=== PATIENT | male | born 1955 | race Caucasian/White ===

== ENCOUNTER → 2017-02-26 | Outpatient (CLI) | payer BC ==
[~2017-02-26] MED LIST: ASPI81TA28 PO; ATOR-26 PO; CLOP1TAB15 PO; GLCSR500 PO; LISI5TAB3 PO; METO25TA3 PO; PARO1TAB27 PO; SITA100T3 PO; XNX25 PO
--- NOTE | 2017-02-26 14:39 | DIAGNOSTIC IMAGING REPORT ---
CHEST 2 VIEWS ROUTINE HISTORY: R07.89 Atypical chest [id number] COMPARISON: Chest 10/16/2009. FINDINGS: The lungs are clear. Cardiac silhouette is normal in size. No pleural effusions. No pneumothorax. IMPRESSION: No acute process. Electronically signed by: Jose Amos M.D. 02/26/2017 2:38 PM Dictated Date/Time: 02/26/2017 2:36 PM
--- NOTE | 2017-02-26 14:40 | DIAGNOSTIC IMAGING REPORT ---
THORACIC SPINE 3 VIEWS ROUTINE CLINICAL HISTORY: PAIN COMPARISON STUDY: No previous studies for comparison. FINDINGS: The paraspinal line is not displaced. There are moderate multilevel degenerative changes with bridging anterior and lateral osteophytes. No fractures are delineated. IMPRESSION: Degenerative change. No fractures subluxations or destructive lesions are visualized Electronically signed by: Antonio Mansfield M.D. 02/26/2017 2:38 PM Dictated Date/Time: 02/26/2017 2:38 PM
== END | disposition home or self-care (01) ==
LOC: C.RADBC 14:16
PROVIDERS: ATTEND Internal Medicine
DX: R07.89 Other chest pain (principal)

== ENCOUNTER 2019-12-22 10:34 | Inpatient (IN) ==
[2019-12-22 11:29] LABS: Basophils # (auto) 0.01 K/uL (0-0.2); Basophils % (auto) 0.1 %; Hematocrit (blood only) 42.2 % (42-52); Hemoglobin 14.8 g/dL (14.0-18.0); Immature Granulocytes # (auto) 0.03 K/uL (0.00-0.02); Immature Granulocytes % (auto) 0.3 %; Lymphocytes # (auto) 1.43 K/uL (1.2-3.4); Lymphocytes % (auto) 15.4 %; Mean Corpuscular Hemoglobin 31.1 pg (25-34); Mean Corpuscular Hgb Conc 35.1 g/dL (32-36); Mean Corpuscular Volume 88.7 fL (80-100); Mean Platelet Volume 9.5 fL (7.4-10.4); Monocytes % (auto) 5.4 %; Neutrophils % (auto) 78.8 %; Platelet Count 236 K/uL (130-400); RDW Coefficient of Variation 13.1 % (11.5-14.5); RDW Standard Deviation 42.5 fL (36.4-46.3); Red Blood Count 4.76 M/uL (4.7-6.1); White Blood Count 9.27 K/uL (4.8-10.8)
[2019-12-22] MEDS ORDERED: OPTIRAY 320 125ml IV PRN ×2 (11:29→22:13)
[2019-12-22 11:30] LABS: Partial Thromboplastin Ratio 0.9; Partial Thromboplastin Time 25.5 Seconds (21.0-31.0)
--- NOTE | 2019-12-22 11:30 | CT Scan Report ---
CT head/brain wo con CLINICAL HISTORY: Stroke evaluation COMPARISON STUDY: No previous studies for comparison. TECHNIQUE: Axial CT of the brain is performed from the vertex to the skull base. IV contrast was not administered for this examination. A dose lowering technique was utilized adhering to the principles of ALARA. CT DOSE: FINDINGS: No intra or extra-axial mass lesions are visualized. There is no CT evidence of acute cortical infarc tion. There is no evidence of midline shift. There is no acute hemorrhage. No calvarial fractures ar e visualized. There are patchy white matter hypodensities likely on a small vessel basis. There is no evidence of pathologic ventricular dilatation. There is no evidence of acute sinusitis IMPRESSION: No acute intracranial findings ACT 112: Negative or not required by law. Electronically signed by: Antonio Mansfield M.D. 12/22/2019 11:28 AM
--- NOTE | 2019-12-22 11:39 | CT Scan Report ---
CTA ANGIOGRAPHY OF THE HEAD CLINICAL HISTORY: Stroke evaluation COMPARISON STUDY: No previous studies for comparison. TECHNIQUE: Helical axial images of the head were obtained following uneventful intravenous administr ation of 120 cc of Optiray 320. Sagittal and coronal reconstructions were viewed as well as maximal i ntensity projections on an independent 3-D workstation. Automated exposure control was utilized for the study. A dose lowering technique was utilized adhering to the principles of ALARA. CT DOSE: 1363.72 mGy.cm FINDINGS: No acute intracranial hemorrhage, midline shift or mass effect is present. Ventricular syst em is normal. The basilar cisterns are patent. There are no extra axial collections. No intraluminal thrombus or abrupt vessel cut off is identified. There is moderate plaque within bilateral cavernous carotids without stenosis. The bilateral M1, M2, A1 and A2 segments are patent. Focal calcified plaqu e within the proximal intracranial portion of the left vertebral artery results in mild to moderate s tenosis. Otherwise, the posterior circulation is unremarkable. There are bilateral posterior communic ating arteries. IMPRESSION: 1. No intraluminal thrombus or abrupt vessel cutoff. No intracranial aneurysm. 2. Mild to moderate stenosis of the intracranial portion of the left vertebral artery. ACT 112: Negative or not required by law. Electronically signed by: Boaz Saenz M.D. 12/22/2019 11:38 AM
--- NOTE | 2019-12-22 11:40 | XRay Report ---
XR chest 1V portable CLINICAL HISTORY: stroke COMPARISON STUDY: Chest radiograph February 26, 2017. FINDINGS: Lung volumes are normal. Lungs are clear. There is no pneumothorax or pleural effusion. Mil d cardiomegaly is noted. Mediastinal contours are normal. There is pulmonary vascular congestion. IMPRESSION: Mild cardiomegaly. Pulmonary vascular congestion without evidence for pulmonary edema. ACT 112: Negative or not required by law. Electronically signed by: Boaz Saenz M.D. 12/22/2019 11:39 AM
--- NOTE | 2019-12-22 11:41 | CT Scan Report ---
CT angio neck with con CLINICAL HISTORY: Stroke evaluation COMPARISON STUDY: No previous studies for comparison. TECHNIQUE: CT angiography was performed from the aortic arch to the skull base. MIP imaging was perfo rmed. The patient was scanned in a dynamic helical fashion during intravenous administration of 120 c c of Optiray 320. A dose lowering technique was utilized adhering to the principles of ALARA. CT DOSE: Technique: CT angiogram of the carotid and vertebral arteries was obtained using intravenous contrast and 3-D reconstruction. NASCET criteria was utilized. Findings: The right carotid revealed no evidence of aneurysm and no evidence of dissection. There is no evidenc e of hemodynamic significant stenosis. The left carotid revealed no evidence of hemodynamic significant stenosis. There is no evidence of an eurysm. There is no evidence of dissection. There is calcified atheromatous plaque at both carotid bifurcations. Both carotids demonstrate a retr opharyngeal course. There is no evidence of hemodynamically significant vertebral stenosis. There is no evidence of verte bral dissection. There are atheromatous calcifications within the distal left humeral artery without evidence of hemodynamically significant stenosis. The left vertebral artery is dominant. IMPRESSION: No evidence of hemodynamically significant carotid or vertebral artery stenosis. No evidence of disse ction. ACT 112: Negative or not required by law. Electronically signed by: Antonio Mansfield M.D. 12/22/2019 11:39 AM
[2019-12-22 11:42] LABS: Albumin Level 3.6 gm/dl (3.4-5.0); BUN Creatinine Ratio 9.8 (10-20); Calcium 8.9 mg/dl (8.5-10.1); Creatinine Clr Calc Pharmacy 77.3 ml/min; Est GFR (African American) 64.9; Magnesium 1.3 mg/dl (1.8-2.4); Potassium 4.1 mmol/L (3.5-5.1)
[2019-12-22] MEDS ORDERED: LORazepam 2 MG/4 ML VIAL IV STA (11:44)
[2019-12-22 11:58] LABS: Albumin Globulin Ratio 0.8 (0.9-2); Bilirubin,Total 1.8 mg/dl (0.2-1); Globulin 4.3 gm/dl (2.5-4.0); Total Protein 7.9 gm/dl (6.4-8.2); Troponin I 0.082 ng/ml (0-0.045)
[2019-12-22] MEDS: SODIUM CHLORIDE 0.9% 1000ML 1,000 ML IV SCH ×2 (12:02→21:30)
[2019-12-22] MEDS ORDERED: MAGNESIUM SULFATE / D5W 1 GM/100 ML BAG IV STA (13:03)
[2019-12-22] MEDS ORDERED: LORazepam 2 MG/4 ML VIAL ONE (14:05)
--- NOTE | 2019-12-22 15:03 | Magnetic Resonance Report ---
MR brain wo con HISTORY: 64 years-old Male AMS acutely altered mental status with headache COMPARISON: Head CT, CTA head neck of same day TECHNIQUE: Multiplanar multisequence MRI of the brain was obtained without the use of IV contrast. FINDINGS: Machine Biller localizer images demonstrate no gross extracranial abnormality. There is no restricted diffusio n to suggest acute or subacute infarct. Midline structures including the corpus callosum, brainstem, optic chiasm, pituitary and pineal glands appear unremarkable the sagittal T1 series. No cerebellar t onsillar herniation. Degenerative changes are noted involving the imaged cervical spine. Study is mildly motion degraded. No acute intracranial hemorrhage, midline shift, abnormal extra axia l collection, hydrocephalus or intracranial mass. Mild to moderate patchy T2/FLAIR hyperintensities a re noted within the white matter. Minimal age-related involutional changes. Major vascular flow voids are patent. Mastoid air cells are clear. Mild mucosal thickening of the paranasal sinuses. Skull, or bits and soft tissues are unremarkable. IMPRESSION: 1. No acute intracranial abnormality identified, specifically there is no evidence of acute or subacu te infarct. 2. Mild to moderate patchy T2/FLAIR hyperintensities throughout the white matter are suggestive of pr obable chronic microvascular ischemic changes. ACT 112: Negative or not required by law. The above report was generated using voice recognition software. It may contain grammatical, syntax o r spelling errors. Electronically signed by: Thomas Gresham M.D. 12/22/2019 3:01 PM
--- NOTE | 2019-12-22 15:51 | History & Physical Report ---
Date of Service December 22, 2019 Assessment & Plan (1) Altered mental state: Toxic-metabolic encephalopathy MRI negative for stroke therefore given ongoing substantial symptoms and non- classical for CVA and intermittent I do not feel further stroke workup is warranted. Suspected due to UTI from history as below UA pending at this time Mild hyponatremia and hypomagnesemia unclear if contributory (2) UTI (urinary tract infection): Suspected based on history, awaiting UA. No prostate pain on palpation. No significant Cr increase or history of stones to warrant renal imaging. Start on ceftriaxone 2g IV once UA and blood cultures taken (3) Hyponatremia: Unlikely contributory at 131 to AMS. Repeat with AM labs with NSS given at low rate due to pulmonary vascular congestion seen on CXR. (4) Hypomagnesemia: Mg 1.3 on admission. s/p Mg sulphate 2g IV. Repeat with AM labs ?due to diarrhea (5) Hyperlipidemia: Continue atorvastatin 40mg PO HS (6) Obstructive sleep apnea: CPAP HS (7) Hypothyroidism: TSH WNL Continue levothyroxine 100 mcg daily (8) HTN (hypertension): Continue Metoprolol succinate 50mg PO daily, lisinopril 5mg PO daily (9) Diabetes mellitus type 2, uncontrolled, with complications: Hold metformin and sitagliptin HbA1C with AM labs (previously 9.2) (10) Morbid obesity: Unable to perform meaningful weight loss discussion due to altered mental state (11) Coronary atherosclerosis of [place] coronary vessel: Recent echocardiogram in October unremarkable. No significant valvular pathology despite murmur heard on exam (12) DVT prophylaxis: Lovenox 40mg SQ BID (increased dose due to weight) Admission and Anticipated Discharge Date Admission Date: 12/22/2019 History of Present Illness Chief Complaint: Altered mental state Primary Care Provider: Russ Newsome MD Ever Morales is a 64 year old male who presents to the ER with his due to altered mental state. The only thing the patient can tell me is that he is here because he is fatigued. History was taken from his at bedside. She reports he has not been his usual self but not particularly getting worse over the last few weeks. Having more of a problem answering her and being slower coming up with his answers and confused at times saying bizarre things. He has been getting good sleep and wearing his BiPAP at night. No medical attention was sought during this period. On review of systems she does report his urine has been more cloudy during this time. Today she noticed a much larger change starting when he got up this morning around 4am. She heard what sounded like vomiting in the bathroom. She found him out in the hallway, standing on top of the stairs holding the railing, just standing there, staring. He had a sudden diarrhea bowel movement while standing up (not watery). She had expected him to clean himself up but apparently he just went back to bed. He also had loss of urine control. Since then he has had a more profound generalized confusion where sometimes he will answer questions appropriately and at other times will talk normal worse but they will be nonsense. He can also read intermittently. When talker to him he appears to take more time processing the information. He was a telestroke in the ER due to concern for receptive dysphasia however given intermittent nature of symptoms stroke was not suspected. MRI brain in ER was negative for acute CVA. Allergies Allergy/AdvReac Type Severity Reaction Status Date / Time No Known Allergies Allergy Verified 08/31/19 14:23 Home Medications Home Medications Medication Instructions Recorded Confirmed Type aspirin 81 mg tablet,delayed 81 mg PO DAILY tab 02/04/19 12/22/19 History release omega-3 fatty acids-fish oil 360 1 cap PO DAILY cap 02/04/19 12/22/19 History mg-1,200 mg capsule nitroglycerin 0.4 mg sublingual 0.4 mg SL UD PRN tab 03/07/19 12/22/19 History tablet allopurinol 300 mg tablet 300 mg PO DAILY #90 tab 03/23/19 12/22/19 Rx atorvastatin 80 mg tablet 80 mg PO HS #90 tab 03/23/19 12/22/19 Rx lisinopril 10 mg tablet 5 mg PO DAILY tab 05/03/19 12/22/19 History levothyroxine 100 mcg tablet 100 mcg PO DAILY #90 tab 09/20/19 12/22/19 Rx metformin 1,000 mg tablet 1,000 mg PO BID #180 tab 11/18/19 12/22/19 Rx paroxetine HCl 20 mg tablet 20 mg PO DAILY #90 tab 11/18/19 12/22/19 Rx sitagliptin 100 mg tablet 100 mg PO DAILY #90 tab 11/24/19 12/22/19 Rx metoprolol succinate 50 mg PO DAILY 12/22/19 12/22/19 History Past Med/Surg History Medical History (Updated 12/23/19 @ 08:33 by Terell Sharp MD) Colon polyps Diabetes mellitus, type 2 Diabetic nephropathy associated with type 2 diabetes mellitus (Chronic) Gout History of colon polyps (Inactive) History of positive PPD History of rheumatic fever History of rheumatic fever as a child Myocardial Infarction 2007 Skin cancer of nose Tubular adenoma of colon (Chronic) Vitamin D deficiency (Chronic) Surgical History History of cardiac cath 2007 @[facility] History of colonoscopy History of heart artery stent 2007 @ [facility] x1 stent--no support architect History of open reduction and internal fixation (ORIF) procedure R ankle History of tonsillectomy and adenoidectomy History of tooth extraction wisdom teeth Family History (Updated 08/31/19 @ 14:36 by Krysten Sims) Mother Hypothyroidism Pulmonary tuberculosis Diabetes Father Coronary heart disease Diabetes Sister Renal failure Heart disease Diabetes Brother Hypothyroidism Grandfather (Paternal) Lung cancer Denies family history of Ovarian cancer Prostate cancer Breast cancer Colorectal cancer Social History Preferred Language: Irish Communication Ability: Effective Visual Impairment: No Limitations Hearing Ability: Normal Business Intelligence Administrator Required: No Beliefs That Will Affect Care: None marital status: Current Living Situation: Spouse current occupational status: retired Other Information That Helps Us Care for You: No Feels Safe at Home: Yes Safety Concerns: Feels Safe At This Time Smoking Status: Former smoker Tobacco Type: smokeless tobacco ; Do You Dip or Chew Tobacco: Yes (used to chew tabacco) ; Smoking End Date: 20 years ago ; Second Hand Exposure: No ; Hx Alcohol Use: Yes Hx Substance Use: No Childhood Exposure to Second-Hand Smoke: No Dental Care, Regularly: Yes Physical Activity Frequency: 3-4 Times per Week Seatbelt Use: always Sunscreen Use: No Review of Systems Review of Systems: All systems reviewed & are unremarkable except as noted in HPI & below Respiratory: no cough, no chest congestion and no wheezing Cardiovascular: no chest pain, no dyspnea on exertion and no edema Gastrointestinal: as per Subjective / HPI; no abdominal pain, no heartburn, no nausea, no vomiting (currently), no coffee ground emesis, no cramping, no change in bowel habits (prior to BM today), no constipation, no blood in stools and no melena Genitourinary: + problem reported (cloudiness of urine for last 2 weeks as per his ); no dysuria, no urinary frequency, no decreased urination and no testicle pain Psychiatric: no problem reported (taking paroxetine as prescribed) Endocrine: + problem reported (poor diabetes control) Physical Exam Constitutional: well developed and + morbidly obese; no acute distress Eyes: PERRL, conjunctivae normal, anicteric sclerae EOM intact bilaterally and + nystagmus (b/l horizontal, no vertical) ENMT: external ear and nose normal, oropharynx normal Neck: trachea midline, no thyromegaly + short neck and + thick neck Respiratory: normal respiratory effort, lungs clear to auscultation Auscultation: no wheezes Cardiovascular: Rate/Rhythm: regular rate and regular rhythm Heart Sounds: + murmur (apical) Vessels: no JVD (difficult to assess due to neck size) Extremities: normal capillary refill and + pedal edema (1+ b/l to knees); no calf tenderness Gastrointestinal (Abdomen): Inspection/Auscultation: abdomen normal to inspection (large but apparently at baseline) and normal bowel sounds Percussion/Palpation: abdomen soft; abdomen nontender, no guarding and abdomen not rigid Musculoskeletal: no cyanosis or clubbing, extremities motor strength 5/5 Skin: no rashes, warm and dry Neurologic: awake and + confused; no focal motor deficits Speech / Cognition: + abnormal cognition (delayed answers intermittently); normal speech (intermittently does not follow commands correctly but none consistent), no expressive aphasia and no receptive aphasia Motor/Sensory: no tremor, no pronator drift and no sensory deficit Cranial Nerves: sense of smell intact, PERRL, EOM intact bilaterally, normal facial strength, tongue midline, normal hearing, able to rotate head bilaterally, able to elevate shoulders bilaterally and symmetric palate elevation; + nystagmus Coordination: normal [id number] test Psychiatric: Orientation: alert and oriented to person; + not oriented to place and + not oriented to time Eye Contact: + fair eye contact Motor Behavior: no abnormal motor movements Speech: normal rate/rhythm/volume of speech Affect: + flat affect Thought Process: + word salad (intermittent) Genitourinary: no CVA tenderness Lymphatic: no cervical or axillary lymphadenopathy Results & Data Results & Data ([facility]) Vital Signs (Past 12 Hours) Vital Signs Temp Pulse Pulse Resp BP BP Pulse Ox 12/22/19 15:30 98 H 23 124/78 92 12/22/19 15:05 93 12/22/19 15:03 98 H 22 141/84 H 90 12/22/19 14:08 87 18 134/74 97 12/22/19 12:48 99 H 20 137/75 93 12/22/19 11:48 103 H 22 148/87 H 93 12/22/19 11:33 92 12/22/19 10:47 37.3 C 104 H 22 151/[address] head/brain wo con IMPRESSION: No acute intracranial findings CTA ANGIOGRAPHY OF THE HEAD IMPRESSION: 1. No intraluminal thrombus or abrupt vessel cutoff. No intracranial aneurysm. 2. Mild to moderate stenosis of the intracranial portion of the left vertebral artery. CT angio neck with con IMPRESSION: No evidence of hemodynamically significant carotid or vertebral artery stenosis. No evidence of dissection. XR chest 1V portable Mild cardiomegaly. Pulmonary vascular congestion without evidence for pulmonary edema. MR brain wo con IMPRESSION: 1. No acute intracranial abnormality identified, specifically there is no evidence of acute or subacute infarct. 2. Mild to moderate patchy T2/FLAIR hyperintensities throughout the white matter are suggestive of probable chronic microvascular ischemic changes. ECG Rate (beats per minute): 104 Rhythm: sinus tachycardia Findings: no acute ischemic change Comparison ECG Date: from (Jul 06 2008) Change: the following changes noted (rate change only) Code Status & VTE Plan Code Status Full VTE Prophylaxis Plan VTE Prophylaxis will be ordered: Yes PG Care Time/CCT Total # of Minutes Spent Total Time Spent with Patient: Total time spent is greater than 50% in coordination of care (as documented) at patient's floor/unit and/or counseling patient: Coding Level of Care Code 42498 Initial Inpt Care Lvl 3 Diagnoses Altered mental state R41.82 UTI (urinary tract infection) N39.0 Hyponatremia E87.1 Hypomagnesemia E83.42 Hyperlipidemia E78.2 Hyperlipidemia type: mixed hyperlipidemia Obstructive sleep apnea G47.33 Hypothyroidism E03.9 HTN (hypertension) I10 Hypertension type: essential hypertension Diabetes mellitus type 2, uncontrolled, with complications E11.8; E11.65 Morbid obesity E66.01 Coronary atherosclerosis of [place] coronary vessel I25.10 [place] vs. transplanted heart: l[place] heart Associated angina: without angina DVT prophylaxis Z29.9 (1) Hyperlipidemia Hyperlipidemia type: mixed hyperlipidemia Qualified Code(s): E78.2 - Mixed hyperlipidemia (2) HTN (hypertension) Hypertension type: essential hypertension Qualified Code(s): I10 - Essential (primary) hypertension (3) Coronary atherosclerosis of [place] coronary vessel [place] vs. transplanted heart: l[place] heart Associated angina: without angina Qualified Code(s): I25.10 - Atherosclerotic heart disease of [place] coronary artery without angina pectoris
[2019-12-22] MEDS ORDERED: GLUCAGON FOR INJ 1 MG VIAL SQ PRN (16:16)
[2019-12-22] MEDS ORDERED: GLUCOSE 10 TABS/TUBE PO PRN (16:16)
[2019-12-22] MEDS ORDERED: GLUCOSE 40% GEL 15 GM TUBE PO PRN (16:16)
[2019-12-22] MEDS ORDERED: DEXTROSE 50% 50 ML SYRINGE IV PRN (16:16)
[2019-12-22] MEDS ORDERED: CARBOHYDRATES FOR HYPOGLYCEMIA PO PRN (16:16)
[2019-12-22 16:43] LABS: Lyme Ab IgG w/WB Rflx Negative (Negative); Lyme Ab IgM w/WB Rflx Negative (Negative)
[2019-12-22] MEDS ORDERED: ACETAMINOPHEN 325 MG TAB PO PRN (17:40)
[2019-12-22] MEDS ORDERED: MAGNESIUM HYDROXIDE SUSP 30 ML UDC PO PRN (17:40)
[2019-12-22] MEDS ORDERED: ONDANSETRON INJ 2 MG/ML 2 ML VIAL IV PRN (17:40)
[2019-12-22] MEDS ORDERED: ALUMINUM/MAGNESIUM SUSP 30 ML UDC PO PRN (17:40)
[2019-12-22] MEDS ORDERED: NITROGLYCERIN SL 0.4 MG/TAB TAB SL PRN (17:40)
[2019-12-22] MEDS ORDERED: POLYETHYLENE (MIRALAX) 17 GM PACK PO PRN (17:40)
[2019-12-22] MEDS: INSULIN ASPART 100 UNITS/ML 3 ML PEN SC SCH ×2 (18:45→20:16)
[2019-12-22 19:18] LABS: Appearance Urine Clear (Clear); Bilirubin Urine Negative (Negative); Blood Urine Negative (Negative); Color Urine Yellow; Glucose Urine UA Trace (Negative); Ketones Urine Negative (Negative); Leukocyte Esterase Urine Negative (Negative); Nitrite Urine Negative (Negative); Protein Urine Negative (Negative); Specific Gravity Urine 1.014 (1.000-1.030); Urobilinogen Urine Negative (Negative); pH Urine 5.5 (4.5-7.5)
[2019-12-22] MEDS: ATORVASTATIN 40 MG TAB PO SCH (20:12)
[2019-12-22] MEDS: INSULIN GLARGINE SOLOSTAR 100 UNITS/ML 3 ML PEN SC SCH (20:15)
[2019-12-22 20:59] LABS: Amphetamines+Metham, Urine Neg (Neg); Barbiturates, Urine Neg (Neg); Benzodiazepine, Urine Neg (Neg); Cocaine, Urine Neg (Neg); MDMA (Ecstacy), Urine Neg (Neg); Methadone, Urine Neg (Neg); Opiate, Urine Neg (Neg); Phencyclidine, Urine Neg (Neg)
[2019-12-22] MEDS ORDERED: MAGNESIUM SULFATE / D5W 1 GM/100 ML BAG IV ONE (21:00)
[2019-12-22 21:15] LABS: Prostate Specific Antigen 1.42 ng/ml (0-4)
[2019-12-22 22:07] LABS: Appearance Urine Clear (Clear); Bilirubin Urine Negative (Negative); Blood Urine Negative (Negative); Color Urine Yellow; Glucose Urine UA Negative (Negative); Ketones Urine Negative (Negative); Leukocyte Esterase Urine Negative (Negative); Nitrite Urine Negative (Negative); Protein Urine Negative (Negative); Urobilinogen Urine Negative (Negative)
[2019-12-22 23:37] LABS: Albumin Level 3.6 gm/dl (3.4-5.0); Bilirubin Direct 0.3 mg/dl (0-0.2); Bilirubin,Total 1.6 mg/dl (0.2-1); Phosphorus 3.8 mg/dl (2.5-4.9); Total Protein 7.8 gm/dl (6.4-8.2)
[2019-12-23] MEDS: LEVOTHYROXINE SODIUM 100 MCG TABLET PO SCH (05:57)
--- NOTE | 2019-12-23 06:01 | Electrocardiogram Report ---
Test Reason : Blood Pressure : / mmHG Vent. Rate : 104 BPM Atrial Rate : 104 BPM P-R Int : 170 ms QRS Dur : 078 ms QT Int : 352 ms P-R-T Axes : 042 -11 023 degrees QTc Int : 462 ms Sinus tachycardia Cannot rule out Inferior infarct When compared with ECG of 06-JUL-2008 04:10, Vent. rate has increased BY 38 BPM Confirmed by Dany Barfield ([id number]) on 12/23/2019 6:00:48 AM Referred By: Russ Newsome Confirmed By:Dany Barfield
--- NOTE | 2019-12-23 07:20 | CT Scan Report ---
CT abd pelvis IV con only CT DOSE: 1857.58 mGy.cm HISTORY: Nausea. Pain. Diarrhea, abdominal distension, altered mental sta TECHNIQUE: Multiaxial CT images of the abdomen and pelvis were performed following the use of intrave nous contrast. A dose lowering technique was utilized adhering to the principles of ALARA. COMPARISON STUDY: None FINDINGS: Lung bases are clear. The liver spleen and pancreas are unremarkable. The small bowel pattern is unremarkable. Mild colonic wall thickening throughout. Trace pericolonic infiltrative change. This appearance is co nsistent with that of a nonspecific colitis. No evidence for abscess collection or obstructive change. Bladder is midline. There is no free fluid within the pelvic cul-de-sac. IMPRESSION: 1. Mild nonspecific colitis.. 2. No evidence for abscess collection or obstruction. ACT 112: Negative or not required by law. The above report was generated using voice recognition software. It may contain grammatical, syntax or spelling errors. Electronically signed by: Lázaro Ocampo M.D. 12/23/2019 7:18 AM
[2019-12-23 07:39] LABS: Basophils # (auto) 0.01 K/uL (0-0.2); Basophils % (auto) 0.2 %; Eosinophils # (auto) 0.04 K/uL (0-0.5); Eosinophils % (auto) 0.8 %; Hematocrit (blood only) 41.9 % (42-52); Immature Granulocytes # (auto) 0.01 K/uL (0.00-0.02); Immature Granulocytes % (auto) 0.2 %; Lymphocytes % (auto) 17.6 %; Mean Corpuscular Hgb Conc 33.4 g/dL (32-36); Mean Corpuscular Volume 89.7 fL (80-100); Mean Platelet Volume 9.1 fL (7.4-10.4); Monocytes # (auto) 0.82 K/uL (0.11-0.59); Neutrophils # (auto) 3.34 K/uL (1.4-6.5); Neutrophils % (auto) 65.2 %; Platelet Count 200 K/uL (130-400); RDW Coefficient of Variation 13.5 % (11.5-14.5); Red Blood Count 4.67 M/uL (4.7-6.1); White Blood Count 5.12 K/uL (4.8-10.8)
[2019-12-23 08:08] LABS: Albumin Level 2.9 gm/dl (3.4-5.0); BUN Creatinine Ratio 10.6 (10-20); Calcium 8.3 mg/dl (8.5-10.1); Creatinine Clr Calc Pharmacy 91.8 ml/min; Est GFR (African American) 77.2; Est GFR (Non-African American) 66.7; Magnesium 1.9 mg/dl (1.8-2.4); Potassium 3.8 mmol/L (3.5-5.1)
[2019-12-23 08:12] LABS: Albumin Globulin Ratio 0.8 (0.9-2); Bilirubin,Total 1.8 mg/dl (0.2-1); Globulin 3.8 gm/dl (2.5-4.0); Total Protein 6.7 gm/dl (6.4-8.2); Troponin I 0.044 ng/ml (0-0.045)
[2019-12-23 08:20] LABS: Estimated Average Glucose 223 mg/dl; Hemoglobin A1C 9.4 % (4.5-5.6)
[2019-12-23] MEDS ORDERED: ASPIRIN 81 MG ECTAB PO SCH ×2 (09:00→21:00)
[2019-12-23] MEDS ORDERED: PARoxetine HCL 20 MG TAB PO SCH ×2 (09:00→21:00)
[2019-12-23] MEDS: SODIUM CHLORIDE 0.9% 1000ML 1,000 ML IV SCH ×2 (09:08→18:32)
[2019-12-23] MEDS: ENOXAPARIN INJ 40 MG/0.4 ML SYR SQ SCH ×2 (09:08→21:32)
[2019-12-23] MEDS: allopurinoL 300 MG TAB PO SCH (09:08)
[2019-12-23] MEDS: OMEGA-3 (PURIFIED FISH OIL) 1 GM CAP PO SCH (09:08)
[2019-12-23] MEDS: METOPROLOL SUCC 50MG EXT REL TAB PO SCH (09:09)
[2019-12-23] MEDS: INSULIN ASPART 100 UNITS/ML 3 ML PEN SC SCH ×4 (09:09→21:34)
[2019-12-23] MEDS: lisinopriL 5 MG TAB PO SCH (09:09)
[2019-12-23] MEDS: INSULIN GLARGINE SOLOSTAR 100 UNITS/ML 3 ML PEN SC SCH ×2 (09:09→21:33)
[2019-12-23] MEDS ORDERED: Nursing to Pharmacy Communication SCH (10:00)
--- NOTE | 2019-12-23 15:44 | Emergency Department Note ---
History of Present Illness General Chief complaint: Altered Mental Status Stated complaint: AMS, REF'D BY GAVINO Time Seen by Provider: 12/22/19 11:02 Source: family and RN notes reviewed Mode of arrival: ambulatory Limitations: altered mental status and clinical acuity History of Present Illness Provider complaint: Altered mental status This patient is a 64-year-old male who presents emergency department with his . She states he has had some significant confusion recently. She first noticed it up to a week ago with some subtle confusion. Patient was leaving to drive a car but got into the passenger side. He seemingly was not hearing or understanding her when she was speaking periodically. This morning the patient was found at 4 AM outside of the bathroom making noise. She came out of the bedroom and noticed that he was completely incontinent of diarrhea. She was trying to assist him in getting cleaned up however he climbed back into the bed covered in stool. Patient's states she had a difficult time getting him cleaned up. She talked to the primary care physician's office who encouraged evaluation. She states her was resistant to any sort of emergency visit over the course of the last week. She decided to bring him in by private vehicle as opposed to an ambulance. She denies that he has been febrile, had a head injury complained of chest pain or shortness of breath. Currently the patient is not able to answer questions. He is able to state that he would like a drink of water. Home Medications Home Medications Medication Instructions Recorded Confirmed Type aspirin 81 mg tablet,delayed 81 mg PO DAILY tab 02/04/19 12/22/19 History release omega-3 fatty acids-fish oil 360 1 cap PO DAILY cap 02/04/19 12/22/19 History mg-1,200 mg capsule nitroglycerin 0.4 mg sublingual 0.4 mg SL UD PRN tab 03/07/19 12/22/19 History tablet allopurinol 300 mg tablet 300 mg PO DAILY #90 tab 03/23/19 12/22/19 Rx atorvastatin 80 mg tablet 80 mg PO HS #90 tab 03/23/19 12/22/19 Rx lisinopril 10 mg tablet 5 mg PO DAILY tab 05/03/19 12/22/19 History levothyroxine 100 mcg tablet 100 mcg PO DAILY #90 tab 09/20/19 12/22/19 Rx metformin 1,000 mg tablet 1,000 mg PO BID #180 tab 11/18/19 12/22/19 Rx paroxetine HCl 20 mg tablet 20 mg PO DAILY #90 tab 11/18/19 12/22/19 Rx sitagliptin 100 mg tablet 100 mg PO DAILY #90 tab 11/24/19 12/22/19 Rx metoprolol succinate 50 mg PO DAILY 12/22/19 12/22/19 History Allergies Allergy/AdvReac Type Severity Reaction Status Date / Time No Known Allergies Allergy Verified 08/31/19 14:23 Past Med/Surg History Medical History Colon polyps Diabetes mellitus, type 2 Diabetic nephropathy associated with type 2 diabetes mellitus (Chronic) Gout History of colon polyps (Inactive) History of positive PPD History of rheumatic fever History of rheumatic fever as a child Myocardial Infarction 2007 Skin cancer of nose Tubular adenoma of colon (Chronic) Vitamin D deficiency (Chronic) Surgical History History of cardiac cath 2007 @[facility] History of colonoscopy History of heart artery stent 2007 @ [facility]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 History of open reduction and internal fixation (ORIF) procedure R ankle History of tonsillectomy and adenoidectomy History of tooth extraction wisdom teeth Family History Mother Hypothyroidism Pulmonary tuberculosis Diabetes Father Coronary heart disease Diabetes Sister Renal failure Heart disease Diabetes Brother Hypothyroidism Grandfather (Paternal) Lung cancer Denies family history of Ovarian cancer Prostate cancer Breast cancer Colorectal cancer Social History Preferred Language: Arabic Communication Ability: Effective Visual Impairment: No Limitations Hearing Ability: Normal 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 Beliefs That Will Affect Care: None marital status: Current Living Situation: Spouse current occupational status: retired Other Information That Helps Us Care for You: No Feels Safe at Home: Yes Safety Concerns: Feels Safe At This Time Smoking Status: Former smoker Tobacco Type: smokeless tobacco ; Do You Dip or Chew Tobacco: Yes (used to chew tabacco) ; Smoking End Date: 20 years ago ; Second Hand Exposure: No ; Hx Alcohol Use: Yes Hx Substance Use: No Childhood Exposure to Second-Hand Smoke: No Dental Care, Regularly: Yes Physical Activity Frequency: 3-4 Times per Week Seatbelt Use: always Sunscreen Use: No Review of Systems Other (Acute alteration in mental status) Physical Exam Vital signs reviewed. General: Somewhat chronically ill-appearing, morbidly obese 64-year-old male, in no significant distress. HEENT: No scleral icterus, PERRLA, neck supple. Atraumatic. Cardiovascular: Regular rate and rhythm, no extra sounds. Pulmonary: Clear to auscultation bilaterally, normal work of breathing. Abdomen: Soft, nontender, nondistended, positive bowel sounds. Musculoskeletal: Atraumatic, no peripheral edema. Neurologic: Patient awake alert and unable to answer questions appropriately, an element of word salad however patient is able to state he would like a drink of water, full strength in all 4 extremities. Cranial nerves 2 through 12 grossly intact. There is no focal neurologic deficit however the patient does become confused with commands such as "lift your right leg" he extends both arms. Patient also sticks his tongue out when asked to close his eyes. Skin: Warm, dry, no rash Course Administered Medications Acetaminophen (Tylenol) 650 mg PO Q4H PRN PRN Reason: Pain or Fever Stop: 01/21/20 17:39 Last Admin: 12/22/19 18:48 Dose: 650 mg Documented by: [id number] Allopurinol (Zyloprim) 300 mg PO DAILY CHRISTINA Stop: 01/22/20 08:59 Last Admin: 12/23/19 09:08 Dose: 300 mg Documented by: [id number] Atorvastatin Calcium (Lipitor) 80 mg PO HS CHRISTINA Stop: 01/21/20 20:59 Last Admin: 12/22/19 20:12 Dose: 80 mg Documented by: [id number] Enoxaparin Sodium (Lovenox) 40 mg SQ BID CHRISTINA Stop: 01/22/20 08:59 Last Admin: 12/23/19 09:08 Dose: 40 mg Documented by: [id number] Fish Oil ([place]-3 (Purified Fish Oil)) 1 gm PO DAILY CHRISTINA Stop: 01/22/20 08:59 Last Admin: 12/23/19 09:08 Dose: 1 gm Documented by: [id number] Sodium Chloride (Nss 1000ml) 1,000 mls @ 100 mls/hr IV .Q10H CHRISTINA Stop: 01/21/20 11:14 Last Admin: 12/23/19 09:08 Dose: 100 mls/hr Documented by: [id number] Infusion: 12/23/19 07:59 Dose: 100 mls/hr Documented by: [id number] Infusion: 12/22/19 22:24 Dose: 100 mls/hr Documented by: [id number] Infusion: 12/22/19 21:56 Dose: 0 mls/hr Documented by: [id number] Admin: 12/22/19 21:30 Dose: 100 mls/hr Documented by: [id number] Infusion: 12/22/19 21:30 Dose: 100 mls/hr Documented by: [id number] Admin: 12/22/19 12:02 Dose: 100 mls/hr Documented by: [id number] Insulin Aspart (Novolog Flexpen) 0 units SC ACHS [facility] Stop: 01/21/20 16:29 Last Admin: 12/23/19 12:35 Dose: 6 units Documented by: [id number] Cosigned by: [id number] Admin: 12/23/19 09:09 Dose: 5 units Documented by: [id number] Cosigned by: [id number] Admin: 12/22/19 20:16 Dose: 3 units Documented by: [id number] Cosigned by: [id number] Admin: 12/22/19 18:45 Dose: 5 units Documented by: [id number] Cosigned by: [id number] Insulin Glargine (Lantus Solostar Pen) 10 units SC BID [facility] Stop: 01/21/20 20:59 Last Admin: 12/23/19 09:09 Dose: 10 units Documented by: [id number] Cosigned by: [id number] Admin: 12/22/19 20:15 Dose: 10 units Documented by: [id number] Cosigned by: [id number] Ioversol (Optiray 320 125ml) 120 ml IV ONCE PRN PRN Reason: Interaction Checking Stop: 12/26/19 11:28 Last Admin: 12/22/19 11:30 Dose: 120 ml Documented by: [id number] Ioversol (Optiray 320 125ml) 119 ml IV ONCE PRN PRN Reason: Interaction Checking Stop: 12/26/19 22:12 Last Admin: 12/22/19 22:13 Dose: 119 ml Documented by: [id number] Levothyroxine Sodium (Synthroid) 100 mcg PO DAILYBB [facility] Stop: 01/22/20 06:29 Last Admin: 12/23/19 05:57 Dose: 100 mcg Documented by: [id number] Lisinopril (Zestril) 5 mg PO DAILY CHRISTINA Stop: 01/22/20 08:59 Last Admin: 12/23/19 09:09 Dose: 5 mg Documented by: [id number] Metoprolol Succinate (Toprol Xl) 50 mg PO DAILY CHRISTINA Stop: 01/22/20 08:59 Last Admin: 12/23/19 09:09 Dose: 50 mg Documented by: [id number] Discontinued Medications Aspirin (Ecotrin Ectab) 81 mg PO DAILY CHRITSINA Stop: 01/22/20 08:59 Last Admin: 12/23/19 10:00 Dose: Not Given Documented by: [id number] Lorazepam (Ativan) 2 mg in 4 mls @ 4 mls/min IV NOW STA Stop: 12/22/19 11:45 Last Admin: 12/22/19 14:06 Dose: 4 mls/min Documented by: [id number] Magnesium Sulfate/Dextrose (Magnesium Sulfate / D5w) 1 gm in 100 mls @ 100 mls/hr IV NOW STA Stop: 12/22/19 14:02 Last Infusion: 12/22/19 14:15 Dose: 0 mls/hr Documented by: [id number] Admin: 12/22/19 13:16 Dose: 100 mls/hr Documented by: [id number] Magnesium Sulfate/Dextrose (Magnesium Sulfate / D5w) 1 gm in 100 mls @ 50 mls/hr IV ONE ONE Stop: 12/22/19 22:59 Last Infusion: 12/22/19 23:58 Dose: 0 mls/hr Documented by: [id number] Infusion: 12/22/19 22:24 Dose: 50 mls/hr Documented by: [id number] Infusion: 12/22/19 21:56 Dose: 0 mls/hr Documented by: [id number] Admin: 12/22/19 21:30 Dose: 50 mls/hr Documented by: [id number] Lorazepam (Ativan) Confirm Administered Dose 2 mg .ROUTE .STK-MED ONE Stop: 12/22/19 14:06 Last Admin: 12/22/19 14:59 Dose: Not Given Documented by: [id number] Paroxetine HCl (Paxil) 20 mg PO DAILY [facility] Stop: 01/22/20 08:59 Last Admin: 12/23/19 10:01 Dose: Not Given Documented by: [id number] Medical Decision Making Differential Diagnosis Differential includes acute coronary syndrome, myocardial infarction, CVA, TIA, anemia, infection, pneumonia, UTI, pyelonephritis, poor nutrition, dehydration, electrolyte disturbance,hypoglycemia. Medical Records Attestation: I reviewed the patient's medical records. Home Medications Current Medication List: was personally reviewed by me Laboratory Data Attestation: I reviewed the patient's lab results. Result diagrams: 12/23/19 07:15 12/23/19 07:15 Lab Results 12/22/19 12/22/19 12/22/19 Range/Units 11:00 11:00 11:00 WBC 9.27 (4.8-10.8) K/uL RBC 4.76 (4.7-6.1) M/uL Hgb 14.8 (14.0-18.0) g/dL Hct 42.2 (42-52) % MCV 88.7 (80-100) fL MCH 31.1 (25-34) pg MCHC 35.1 (32-36) g/dL RDW Std Deviation 42.5 (36.4-46.3) fL RDW Coeff of Martín 13.1 (11.5-14.5) % Plt Count 236 (130-400) K/uL MPV 9.5 (7.4-10.4) fL Immature Gran % (Auto) 0.3 % Neut % (Auto) 78.8 % Lymph % (Auto) 15.4 % [place] % (Auto) 5.4 % Eos % (Auto) 0.0 % Baso % (Auto) 0.1 % Neut # (Auto) 7.30 H (1.4-6.5) K/uL Lymph # (Auto) 1.43 (1.2-3.4) K/uL [place] # (Auto) 0.50 (0.11-0.59) K/uL Eos # (Auto) 0.00 (0-0.5) K/uL Baso # (Auto) 0.01 (0-0.2) K/uL Immature Gran # (Auto) 0.03 H (0.00-0.02) K/uL PT 11.0 (9.0-12.0) Seconds INR 1.0 (0.9-1.1) APTT 25.5 (21.0-31.0) Seconds PTT Ratio 0.9 Sodium 131 L (136-145) mmol/L Potassium 4.1 (3.5-5.1) mmol/L Chloride 99 (98-107) mmol/L Carbon Dioxide 23 (21-32) mmol/L Anion Gap 9.0 (3-11) BUN 13 (7-18) mg/dl Creatinine 1.34 (0.6-1.4) mg/dl Est Cr Clr Drug Dosing 77.3 ml/min Est GFR ( Amer) 64.9 Est GFR (Non-Af Amer) 56.0 BUN/Creatinine Ratio 9.8 L (10-20) Glucose 287 H (70-99) mg/dl Calcium 8.9 (8.5-10.1) mg/dl Magnesium 1.3 L (1.8-2.4) mg/dl Total Bilirubin 1.8 H (0.2-1) mg/dl AST 15 (15-37) U/L ALT 27 (12-78) U/L Alkaline Phosphatase 106 (45-117) U/L Ammonia (11-32) umol/L Troponin I 0.082 H* (0-0.045) ng/ml Total Protein 7.9 (6.4-8.2) gm/dl Albumin 3.6 (3.4-5.0) gm/dl Globulin 4.3 H (2.5-4.0) gm/dl Albumin/Globulin Ratio 0.8 L (0.9-2) TSH (0.300-4.500) uIu/ml Lyme Disease IgG Ab (Negative) Lyme Disease IgM Ab (Negative) 12/22/19 12/22/19 12/22/19 Range/Units 11:00 11:00 12:15 WBC (4.8-10.8) K/uL RBC (4.7-6.1) M/uL Hgb (14.0-18.0) g/dL Hct (42-52) % MCV (80-100) fL MCH (25-34) pg MCHC (32-36) g/dL RDW Std Deviation (36.4-46.3) fL RDW Coeff of Martín (11.5-14.5) % Plt Count (130-400) K/uL MPV (7.4-10.4) fL Immature Gran % (Auto) % Neut % (Auto) % Lymph % (Auto) % [place] % (Auto) % Eos % (Auto) % Baso % (Auto) % Neut # (Auto) (1.4-6.5) K/uL Lymph # (Auto) (1.2-3.4) K/uL [place] # (Auto) (0.11-0.59) K/uL Eos # (Auto) (0-0.5) K/uL Baso # (Auto) (0-0.2) K/uL Immature Gran # (Auto) (0.00-0.02) K/uL PT (9.0-12.0) Seconds INR (0.9-1.1) APTT (21.0-31.0) Seconds PTT Ratio Sodium (136-145) mmol/L Potassium (3.5-5.1) mmol/L Chloride (98-107) mmol/L Carbon Dioxide (21-32) mmol/L Anion Gap (3-11) BUN (7-18) mg/dl Creatinine (0.6-1.4) mg/dl Est Cr Clr Drug Dosing ml/min Est GFR ( Amer) Est GFR (Non-Af Amer) BUN/Creatinine Ratio (10-20) Glucose (70-99) mg/dl Calcium (8.5-10.1) mg/dl Magnesium (1.8-2.4) mg/dl Total Bilirubin (0.2-1) mg/dl AST (15-37) U/L ALT (12-78) U/L Alkaline Phosphatase (45-117) U/L Ammonia 27.8 (11-32) umol/L Troponin I (0-0.045) ng/ml Total Protein (6.4-8.2) gm/dl Albumin (3.4-5.0) gm/dl Globulin (2.5-4.0) gm/dl Albumin/Globulin Ratio (0.9-2) TSH 0.338 (0.300-4.500) uIu/ml Lyme Disease IgG Ab Negative (Negative) Lyme Disease IgM Ab Negative (Negative) Imaging Data Radiologist's Impression: CT head/brain wo con CLINICAL HISTORY: Stroke evaluation COMPARISON STUDY: No previous studies for comparison. TECHNIQUE: Axial CT of the brain is performed from the vertex to the skull base. IV contrast was not administered for this examination. A dose lowering technique was utilized adhering to the principles of ALARA. CT DOSE: FINDINGS: No intra or extra-axial mass lesions are visualized. There is no CT evidence of acute cortical infarction. There is no evidence of midline shift. There is no acute hemorrhage. No calvarial fractures are visualized. There are patchy white matter hypodensities likely on a small vessel basis. There is no evidence of pathologic ventricular dilatation. There is no evidence of acute sinusitis IMPRESSION: No acute intracranial findings ACT 112: Negative or not required by law. Electronically signed by: Antonio Mansfield M.D. 12/22/2019 11:28 AM Dictated: 12/22/19 1127 Transcribed: 12/22/191126 CTA ANGIOGRAPHY OF THE HEAD CLINICAL HISTORY: Stroke evaluation COMPARISON STUDY: No previous studies for comparison. TECHNIQUE: Helical axial images of the head were obtained following uneventful intravenous administration of 120 cc of Optiray 320. Sagittal and coronal reconstructions were viewed as well as maximal intensity projections on an [employer] 3-D workstation. Automated exposure control was utilized for the study. A dose lowering technique was utilized adhering to the principles of ALARA. CT DOSE: 1363.72 mGy.cm FINDINGS: No acute intracranial hemorrhage, midline shift or mass effect is present. Ventricular system is normal. The basilar cisterns are patent. There are no extra axial collections. No intraluminal thrombus or abrupt vessel cut off is identified. There is moderate plaque within bilateral cavernous carotids without stenosis. The bilateral M1, M2, A1 and A2 segments are patent. Focal calcified plaque within the proximal intracranial portion of the left vertebral artery results in mild to moderate stenosis. Otherwise, the posterior circulation is unremarkable. There are bilateral posterior communicating ar teries. IMPRESSION: 1. No intraluminal thrombus or abrupt vessel cutoff. No intracranial aneurysm. 2. Mild to moderate stenosis of the intracranial portion of the left vertebral artery. ACT 112: Negative or not required by law. Electronically signed by: Boaz Saenz M.D. 12/22/2019 11:38 AM Dictated: 12/22/[address] angio neck with con CLINICAL HISTORY: Stroke evaluation COMPARISON STUDY: No previous studies for comparison. TECHNIQUE: CT angiography was performed from the aortic arch to the skull base. MIP imaging was performed. The patient was scanned in a dynamic helical fashion during intravenous administration of 120 cc of Optiray 320. A dose lowering technique was utilized adhering to the principles of ALARA. CT DOSE: Technique: CT angiogram of the carotid and vertebral arteries was obtained using intravenous contrast and 3-D reconstruction. NASCET criteria was utilized. Findings: The right carotid revealed no evidence of aneurysm and no evidence of disse ction. There is no evidence of hemodynamic significant stenosis. The left carotid revealed no evidence of hemodynamic significant stenosis. There is no evidence of aneurysm. There is no evidence of dissection. There is calcified atheromatous plaque at both carotid bifurcations. Both carotids demonstrate a retropharyngeal course. There is no evidence of hemodynamically significant vertebral stenosis. There is no evidence of vertebral dissection. There are atheromatous calcifications within the distal left humeral artery without evidence of hemodynamically significant stenosis. The left vertebral artery is dominant. IMPRESSION: No evidence of hemodynamically significant carotid or vertebral artery stenosis. No evidence of dissection. ACT 112: Negative or not required by law. Electronically signed by: Antoino Mansfield M.D. 12/22/2019 11:39 AM Dictated: 12/22/19 1137 Transcribed: 12/22/19 1137 Transcribed: 12/22/19 1133 R chest 1V portable CLINICAL HISTORY: stroke COMPARISON STUDY: Chest radiograph February 26, 2017. FINDINGS: Lung volumes are normal. Lungs are clear. There is no pneumothorax or pleural effusion. Mild cardiomegaly is noted. Mediastinal contours are normal. There is pulmonary vascular congestion. IMPRESSION: Mild cardiomegaly. Pulmonary vascular congestion without evidence for pulmonary edema. ACT 112: Negative or not required by law. Electronically signed by: Boaz Saenz M.D. 12/22/2019 11:39 AM Dictated: 12/22/19 1138 Transcribed: 12/22/19 1138 MR brain wo con HISTORY: 64 years-old Male AMS acutely altered mental status with headache COMPARISON: Head CT, CTA head neck of same day TECHNIQUE: Multiplanar multisequence MRI of the brain was obtained without the use of IV contrast. FINDINGS: Mold Sheet Cleaner localizer images demonstrate no gross extracranial abnormality. There is no restricted diffusion to suggest acute or subacute infarct. Midline structures including the corpus callosum, brainstem, optic chiasm, pituitary and pineal glands appear unremarkable the sagittal T1 series. No cerebellar tonsillar herniation. Degenerative changes are noted involving the imaged cervical spine. Study is mildly motion degraded. No acute intracranial hemorrhage, midline shift, abnormal extra axial collection, hydrocephalus or intracranial mass. Mild to moderate patchy T2/FLAIR hyperintensities are noted within the white matter. Minimal age-related involutional changes. Major vascular flow voids are patent. Mastoid air cells are clear. Mild mucosal thickening of the paranasal sinuses. Skull, orbits and soft tissues are unremarkable. IMPRESSION: 1. No acute intracranial abnormality identified, specifically there is no evidence of acute or subacute infarct. 2. Mild to moderate patchy T2/FLAIR hyperintensities throughout the white matter are suggestive of probable chronic microvascular ischemic changes. ACT 112: Negative or not required by law. The above report was generated using voice recognition software. It may contain grammatical, syntax or spelling errors. Electronically signed by: Thomas Gresham M.D. 12/22/2019 3:01 PM Dictated: 12/22/191456 Transcribed: 12/22/191456 ECG Data Attestation: I personally reviewed and interpreted this ECG as follows: Indication: + altered mental status Rate (beats per minute): 104 Rhythm: + sinus tachycardia ECG Intervals/blocks: + Normal QT-c (462) ECG ST segments: + Normal ST segments ECG Findings: no PACs and no PVCs Blood Pressure Blood Pressure Findings: Normal blood pressure Blood Pressure Disposition: did not require urgent referral MDM Narrative This patient was evaluated and appeared to be in no significant distress. He came in through triage. Patient was evaluated and a stroke alert was called given the acute deterioration this morning at approximately 4 AM. The stroke attending at [facility] declined the consultation due to the remote onset. CT/CTA of the head neck was performed and reveals no evidence of acute abnormality. Patient's laboratory work is fairly reassuring with a normal WBC, troponin of 0.08, slightly elevated, and a normal ammonia level at 27.8. Chest x-ray reveals mild pulmonary vascular congestion. Patient's EKG reveals a sinus rhythm. Patient was sent for MRI which reveals mild to moderate patchy hyperdensities throughout the white matter, but no evidence of acute or subacute infarct. The etiology of this alteration mental status is unclear at this time. Patient's case was discussed with the hospitalist, Dr. Sharp who will evaluate the patient for further management. Patient's and son were made aware of the plan and agree. Impression & Plan Altered mental state Discharge Plan Visit Data *Final* Discharge Date/Time: 12/22/19 17:23 Chief Complaint: Altered Mental Status Stated Complaint: AMS, REF'D BY GAVINO ED Provider: Shi Fields Discharge Problem: Altered mental state Patient Disposition: Admitted As Inpatient Discharge Instructions Interventions: ED Discharge Assessment Last Done: 12/22/19 17:23 Discharge Problem: Altered mental state Qualifiers: Altered mental status type: delirium Qualified Code(s): R41.0 - Disorientation, unspecified
--- NOTE | 2019-12-23 18:16 | Hospitalist Progress Note ---
Date of Service December 23, 2019 Assessment & Plan (1) Altered mental state: seems most likely delirium/metabolic encephalopathy brought about by dehydration (heat, rehydrating w sugary fluids and with his baseline sugar control the fluids were probably actually accentuating fluid loss by osmotic diuresis) compounded by both extra dehydration from diarrhea and inflammatory/metabolic stress from nonspecific colitis. seems back to baseline. is a little worrisome that he might get delirious "that easily" at 64 - discussed small vessel changes on MRI and relevance (and discussed critical importance of DM control as below) ---> very concerned about seizures given repeated episodes similarly. dtr is PA in neurology. i did reassure her that without a focus for seizures, and with his pattern of AMS, seizure seems quite unlikely, but she would greatly appreciate neurology input in this regard - will consult (2) Hyponatremia: hyponatremic dehydration - ipmroved. continue fluids for now (3) Diarrhea: resolved. nonspecific colitis - ?viral vs food poisoning - since resolved, no treatment needed (4) Urinary symptom or sign: no UTI, no prostatitis. seems to have been tied together w delirium (5) Diabetes mellitus type 2, uncontrolled, with complications: uncontrolled. extensive discussions on "why to care" ("high sugars clog arteries") and pathophys/progression of insulin resistance, tying it together w discussion of critical need for lifestyle change. he/ expressed good understanding and appreciation of education/discussion. also suggested 2hr pp glucose checks as a reasonable way to gauge immediate impact of food on metabolism (6) HTN (hypertension): reasonable. continue current. (7) Hypothyroidism: continue home synthroid (8) Chronic renal impairment, stage 2 (mild): w mild ELMA on admission - now improved (9) Coronary atherosclerosis of [place] cross coronary vessel: asymptomatic. continue home meds (10) DVT prophylaxis: lovenox (11) Discharge planning issues: observe for recurrence of sx into tomorrow and to neurology opinion, otherwise anticipate hopefully home tomorrow time in ~12p, time out ~1240p >30mins face to face >50 educating/etc Admission and Anticipated Discharge Date Admission Date: December 22, 2019 Subjective feeling basically entirely better thinking clearly. no further episodes. no trouble w speech. cognitively seems clear. at bedside and corroborates this. she does wonder about seizures - no tonic clonic etc but ntoes that over the last month he's had many episodes where he seems out of it - transient/short lived and seem to rapidly resolve. this all comes after a febrile illness in early november (covid negative). has had urinary issues with these prior spells as well. nothing prior. diarrhea has resolved. no further bowel issues. no urinary issues. ate well for breakfast. feels like himself. this past week - they watch their grandkids - he's been helping them play in an inflatable pool - not in the pool himself but has been doing a lot of bringing water to the pool, and it's been extremely hot. he's been drinking - but sweet tea they make themselves - 1c sugar in 1g water, then when he pours it he uses half tea, half water. Review of Systems Review of Systems: All systems reviewed & are unremarkable except as noted in HPI & below Physical Exam Physical Exam: gen aaox3 pleasant nad heent nc at mmm cardio reg no r/m/g lungs cta b/l no r/r/w good effort skin no rashes no pallor or icterus neuro cn 2-12 grossly intact gross motor/sensory intact no focal deficits abd soft nd nt no masses no guarding/rebound Results & Data Results & Data ([facility]) Vital Signs (Past 12 Hours) Vital Signs Temp Pulse Pulse Resp BP Pulse Ox 12/23/19 15:09 84 12/23/19 15:07 97.5 F L 91 H 24 117/66 96 12/23/19 11:59 97.5 F L 87 18 123/66 93 12/23/19 09:15 84 12/23/19 07:20 98.1 F 89 18 127/68 92 12/23/19 06:52 90 25 H 93 PG Care Time/CCT Total # of Minutes Spent Total Time Spent with Patient: Total time spent is greater than 50% in coordination of care (as documented) at patient's floor/unit and/or counseling patient: Coding Level of Care Code 25094 Subseq Hosp Care Lvl 3 Diagnoses Altered mental state R41.0 Altered mental status type: delirium Hyponatremia E87.1 Diarrhea R19.7 Urinary symptom or sign R39.9 Diabetes mellitus type 2, uncontrolled, with complications E11.8; E11.65 HTN (hypertension) I10 Hypertension type: essential hypertension Hypothyroidism E03.9 Chronic renal impairment, stage 2 (mild) N18.2 Coronary atherosclerosis of holy cross coronary vessel I25.10 [place] vs. transplanted heart: holy cross heart Associated angina: without angina DVT prophylaxis Z29.9 Discharge planning issues Z02.9 (1) Altered mental state Altered mental status type: delirium Qualified Code(s): R41.0 - Disorientation, unspecified (2) HTN (hypertension) Hypertension type: essential hypertension Qualified Code(s): I10 - Essential (primary) hypertension (3) Coronary atherosclerosis of holy cross coronary vessel [place] vs. transplanted heart: holy cross heart Associated angina: without angina Qualified Code(s): I25.10 - Atherosclerotic heart disease of [place] cross coronary artery without angina pectoris
--- NOTE | 2019-12-23 18:23 | Billing Data ---
Date of Service December 23, 2019 Coding Level of Care Code 35636 Prolonged Care (int'l)
[2019-12-23] MEDS: ATORVASTATIN 40 MG TAB PO SCH (21:32)
[2019-12-24] MEDS: SODIUM CHLORIDE 0.9% 1000ML 1,000 ML IV SCH (04:46)
[2019-12-24] MEDS: LEVOTHYROXINE SODIUM 100 MCG TABLET PO SCH (06:16)
[2019-12-24 06:38] LABS: Calcium 8.2 mg/dl (8.5-10.1); Creatinine Clr Calc Pharmacy 86.6 ml/min; Est GFR (Non-African American) 62.1; Potassium 4.3 mmol/L (3.5-5.1)
[2019-12-24] MEDS: ENOXAPARIN INJ 40 MG/0.4 ML SYR SQ SCH (08:07)
[2019-12-24] MEDS: OMEGA-3 (PURIFIED FISH OIL) 1 GM CAP PO SCH (08:08)
[2019-12-24] MEDS: INSULIN ASPART 100 UNITS/ML 3 ML PEN SC SCH (08:08)
[2019-12-24] MEDS: lisinopriL 5 MG TAB PO SCH (08:08)
[2019-12-24] MEDS: INSULIN GLARGINE SOLOSTAR 100 UNITS/ML 3 ML PEN SC SCH (08:08)
[2019-12-24] MEDS: allopurinoL 300 MG TAB PO SCH (08:08)
[2019-12-24] MEDS: METOPROLOL SUCC 50MG EXT REL TAB PO SCH (08:08)
[2019-12-24] MEDS ORDERED: CYANOCOBALAMIN 500 MCG TABLET (VITAMIN B-12) PO SCH (09:00)
--- NOTE | 2019-12-24 09:10 | Neurology Consultation ---
Date of Consultation December 24, 2019 Assessment & Plan (1) Acute encephalopathy: (2) Aphasia: (3) Hypomagnesemia: (4) Diabetes mellitus type 2, uncontrolled, with complications: (5) Chronic cerebral ischemia: (6) Hyperlipidemia: Patient had what seems to be in acute encephalopathy creating confusion and altered responsiveness. I do not get a sense that there was any seizure activity that occurred, but I cannot entirely exclude this. There may have been some receptive or expressive aphasia December 21. MRI of the brain did not show any acute stroke. Currently he has normal mental status and language abilities with no focal neurologic findings, meningeal signs, or encephalopathy on exam. The etiology of this is not readily apparent. Certainly dehydration and excessive exposure to heat recently, on top of his uncontrolled diabetes may have caused this. He has some minor electrolyte disturbance is particularly a low magnesium of 1.3. He seems back to baseline today. He also has significant generalized atrophy and cerebral ischemia which I believe is somewhat out of proportion to his age. This is likely due to his diabetes being uncontrolled for so long. He has a history of dyslipidemia but is on a high-dose statin. He does not have hypertension recently and has not used tobacco in many years. Recommendations: 1. Keep 81 mg aspirin tablet for now. I see no reason to switch to clopidogrel at this time. 2. Has most important medical concern is controlling his diabetes. His hemoglobin A1c needs to be down closer to 7 if possible 3. My sense of his symptoms being a stroke is low. Certainly, should he have another spell that is suggestive of a partial seizure we will obtain an EEG and consider anticonvulsant medication at that time. 4. Otherwise I have no further neurologic testing or treatment to make at this time and suggest follow up in Neurology in 2-3 weeks. Overall, I spent a total of 110 minutes with this case including review of records, review of MRI films, direct evaluation the patient at bedside, and discussing the case with the patient at bed side, RN at bedside, Dr. Tucker at bedside, and patient's family at bedside, including differential diagnosis and treatment options. History of Present Illness Reason for Consultation: Is a 64-year-old, who was asked to see at the request of Dr. Tucker, for neurologic consultation regarding acute encephalopathy. Requesting Physician: Dr. Tucker Attending Physician: Ryan Tucker DO History of Present Illness Patient has a 15 year history of type 2 diabetes. There was a question of diabetic nephropathy in the past from ibuprofen usage but he has stopped the ibuprofen usage and his renal status is improved. He has gout and a history of hypertension in the past. He also has coronary artery disease, post [place] and stent in 2007. He has been on 81 mg aspirin tablet daily. He takes atorvastatin 80, lisinopril, levothyroxine, metformin, sitagliptin, metoprolol, and paroxetine 20 mg daily. He states that over the last few months he will have episodes of feeling more fatigued than usual despite normal activity levels. This will come and go. He has not been having any weakness or numbness, balance issues, vision disturbances, headaches, or increased pain. He has urgency of urination no incontinence typically. According to the history (from his to Dr. Sharp), he started having some nonspecific confusional and understanding issues intermittently starting about a week ago. He remembers going to a ball game in the evening of December 20 from about 6 p.m. to 8:00 p.m.. He came home feeling very tired. He went to bed early that night and got up around 0400 on December 21 to go to the bathroom. He remembers going to the bathroom before making it to the toilet. His found him standing, having had diarrhea, in the hallway. He was confused and not able to answer questions. He recalls a little bit about this. He arrived to the emergency room December 21 1046 with a temperature of 37.3, pulse rate of 104, blood pressure 151/90, respiratory rate 20, and O2 saturation 94%. His examination was described as nonfocal but he was confused and had nonsensical words at times (word salad). CBC was unremarkable. Chem profile showed a sodium of 131, magnesium 1.3, glucose 287. Lyme antibody titers were negative as well as ammonia level. TSH was normal at 0.33. Urinalysis and urine tox screens were negative. RPR was negative. B12 was normal at 345 Chest x-ray showed mild cardiomegaly only. CT scan of the head was unremarkable. CT angiography of the head and neck revealed some moderate stenosis in the intracranial portion of the left vertebral artery, otherwise, there was no stenoses or vessel anomalies. MRI of the brain showed no acute stroke or tumor. There was [id number] generalized cerebral atrophy and old small vessel ischemic changes. I believe these were somewhat out of proportion than I would expect for someone of age 64. Patient had no seizure activity since admission. He feels back to baseline today with no issues including fatigue. Blood pressure was 116/71. Allergies Allergy/AdvReac Type Severity Reaction Status Date / Time No Known Allergies Allergy Verified 08/31/19 14:23 Home Medications Home Medications Medication Instructions Recorded Confirmed Type aspirin 81 mg tablet,delayed 81 mg PO DAILY tab 02/04/19 12/22/19 History release omega-3 fatty acids-fish oil 360 1 cap PO DAILY cap 02/04/19 12/22/19 History mg-1,200 mg capsule nitroglycerin 0.4 mg sublingual 0.4 mg SL UD PRN tab 03/07/19 12/22/19 History tablet allopurinol 300 mg tablet 300 mg PO DAILY #90 tab 03/23/19 12/22/19 Rx atorvastatin 80 mg tablet 80 mg PO HS #90 tab 03/23/19 12/22/19 Rx lisinopril 10 mg tablet 5 mg PO DAILY tab 05/03/19 12/22/19 History levothyroxine 100 mcg tablet 100 mcg PO DAILY #90 tab 09/20/19 12/22/19 Rx metformin 1,000 mg tablet 1,000 mg PO BID #180 tab 11/18/19 12/22/19 Rx paroxetine HCl 20 mg tablet 20 mg PO DAILY #90 tab 11/18/19 12/22/19 Rx sitagliptin 100 mg tablet 100 mg PO DAILY #90 tab 11/24/19 12/22/19 Rx metoprolol succinate 50 mg PO DAILY 12/22/19 12/22/19 History Patient History Medical History Colon polyps Diabetes mellitus, type 2 Diabetic nephropathy associated with type 2 diabetes mellitus (Chronic) Gout History of colon polyps (Inactive) History of positive PPD History of rheumatic fever History of rheumatic fever as a child Myocardial Infarction 2007 Skin cancer of nose Tubular adenoma of colon (Chronic) Vitamin D deficiency (Chronic) Surgical History History of cardiac cath 2007 @[facility] History of colonoscopy History of heart artery stent 2007 @ [facility] x1 stent--no crating and moving estimator History of open reduction and internal fixation (ORIF) procedure R ankle History of tonsillectomy and adenoidectomy History of tooth extraction wisdom teeth Family History Mother , age 79 of complications of diabetes Hypothyroidism Pulmonary tuberculosis Diabetes Father , age 73 of heart disease Coronary heart disease Diabetes Sister Renal failure Heart disease Diabetes Brother Hypothyroidism Grandfather (Paternal) Lung cancer Denies family history of Ovarian cancer Prostate cancer Breast cancer Colorectal cancer Social History Preferred Language: Macedonian Communication Ability: Effective Visual Impairment: No Limitations Hearing Ability: Normal Solar Manager Required: No Beliefs That Will Affect Care: None marital status: Current Living Situation: Spouse current occupational status: retired 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) Other Information That Helps Us Care for You: No Feels Safe at Home: Yes Safety Concerns: Feels Safe At This Time Smoking Status: Former smoker Tobacco Type: smokeless tobacco ; Do You Dip or Chew Tobacco: Yes (used to chew tabacco) ; Smoking End Date: 30 years ago ; Second Hand Exposure: No ; Hx Alcohol Use: Yes Alcohol Intake Frequency Comment: Rare Hx Substance Use: No Childhood Exposure to Second-Hand Smoke: No Dental Care, Regularly: Yes Physical Activity Frequency: 3-4 Times per Week Seatbelt Use: always Sunscreen Use: No Review of Systems Constitutional: no fever, no fatigue and no weakness Eyes: no diplopia, no eye pain and no worsening vision Ear, Nose, Mouth, Throat: no ear pain, no tinnitus, no hearing loss, no dizziness, no hoarseness and no dysphagia Respiratory: no cough and no dyspnea Cardiovascular: no chest pain, no palpitations and no lightheadedness Gastrointestinal: no abdominal pain, no nausea and no vomiting Genitourinary: + urinary urgency; no dysuria and no urinary incontinence Musculoskeletal: no back pain, no neck pain, no radicular pain, no joint pain and no myalgia Integumentary: no rash and no lesions Neurologic: no gait abnormality, no localized weakness, no generalized weakness, no tingling, no numbness, no tremor(s), no abnormal movements, no headache(s), no abnormal speech, no confusion and no memory loss Psychiatric: no depression, no irritability, no anxiety, no difficulty concentrating, no confusion and no hallucinations Endocrine: no fatigue and no flushing Hematologic / Lymphatic: no easy bleeding and no easy bruising Allergy / Immunological: no urticaria and no problem reported Exam (Neuro) Physical Exam: The patient is right-handed. The patient is awake, alert, and attentive. Speech is normal without any aphasia or dysarthria. Language skills are normal with reading and picture identification. he can name objects, repeat phrases, and has normal spontaneous speech. Mentation and thought processes are intact, with orientation to person, place and time, and normal fund of knowledge. Attention and concentration are normal. Mood and affect are normal and appropriate. General appearance and grooming are normal. Short and long-term memory are intact. The discs are sharp with positive venous pulsations bilaterally. There are no exudates, hemorrhages, or blood vessel changes seen. Pupils are 4 mm bilaterally and reactive to light. Extraocular eye muscles are intact without nystagmus. Visual acuity and visual brown seem normal grossly to confrontation. There are no deficits to sensation in the face in all 3 distributions of the fifth cranial nerve bilaterally. Corneal reflexes are positive bilaterally. Facial strength and symmetry was normal bilaterally. Hearing seems normal to whisper and finger rub bilaterally. Palate moves well without asymmetry. There is normal sternocleidomastoid and trapezius (shoulder shrug) strength bilaterally. Tongue is midline with good strength bilaterally. Neck has a full range of motion without discomfort. There are no cervical bruits bilaterally. There are no cranial or ocular bruits. Heart is without murmur. There is a regular rhythm and rate. Cervical, thoracic, and lumbar spine are nontender to palpation. Gait is narrow based, with good arm swing, turns, and stance. Balance is normal eyes open or closed. With outstretched arms there is no drift. There are no resting, postural, or action tremors. There is no ataxia with finger to nose testing. There is good facility in the hands. No other abnormal involuntary movements are noted. Motor strength is 5/5 diffusely in the arms bilaterally including deltoids, biceps, triceps, brachioradialis, wrist flexors and extensors, ingot stripper, and intrinsic hand muscles. Motor strength is 5/5 diffusely in the legs bilaterally including hip flexors, quadriceps, hamstrings, gastrocnemius, tibialis anterior, tibialis posterior, and Peroneii muscles. Toe extensors are normal and there is good bulk in the extensor digitorum brevis muscles bilaterally. The limbs have good tone without rigidity or spasticity. There is no atrophy noted in the muscles. Muscle bulk is normal, there is no tenderness to palpation, no myotonia to percussion, and no fasciculations seen. Sensory examination is intact to touch and pin throughout all 4 limbs diffusely. Reflexes are 1/4 in the biceps, triceps, brachioradialis, quadriceps, and Achilles tendons bilaterally. There is no clonus bilaterally. Toes are downgoing with plantar stimulation bilaterally. Peripheral pulses are present and of normal quality distally in all 4 limbs. There is no peripheral edema noted in the limbs. Results & Data ([facility]) Vital Signs (Past 12 Hours) Vital Signs Temp Pulse Pulse Resp BP Pulse Ox 12/24/19 07:26 74 12/24/19 07:09 36.3 C L 18 116/71 96 12/24/19 04:00 36.5 C 73 19 131/78 95 12/24/19 03:27 74 18 92 12/24/19 03:05 75 12/23/19 23:30 36.5 C 85 20 124/71 95 12/23/19 22:08 82 18 94 Diagnostic Findings [place], [place] [phone] Magnetic Resonance Report Patient: ASHOK LARAAdmit Date: 12/22/19 MR#: [id number]: [address] Acct ID:[id number]: Date: 1955[facility] Zip: [id number] Age: 64Location: ED Sex: M Room/Bed: Att Phy:Diagnosis: AMS, REF'D BY GAVINO Cleary Phy: Russ Newsomeervice Date: 12/22/19 Fam Phy:Interpreting Phy: João Gresham Admit Phy: Ordering Phy: Shi Fields M.D. cc: ~ MR brain wo con HISTORY: 64 years-old Male AMS acutely altered mental status with headache COMPARISON: Head CT, CTA head neck of same day TECHNIQUE: Multiplanar multisequence MRI of the brain was obtained without the use of IV contrast. FINDINGS: County Sheriff localizer images demonstrate no gross extracranial abnormality. There is no restricted diffusion to suggest acute or subacute infarct. Midline structures including the corpus callosum, brainstem, optic chiasm, pituitary and pineal glands appear unremarkable the sagittal T1 series. No cerebellar tonsillar herniation. Degenerative changes are noted involving the imaged cervical spine. Study is mildly motion degraded. No acute intracranial hemorrhage, midline shift, abnormal extra axial collection, hydrocephalus or intracranial mass. Mild to moderate patchy T2/FLAIR hyperintensities are noted within the white matter. Minimal age-related involutional changes. Major vascular flow voids are patent. Mastoid air cells are clear. Mild mucosal thickening of the paranasal sinuses. Skull, orbits and soft tissues are unremarkable. IMPRESSION: 1. No acute intracranial abnormality identified, specifically there is no evidence of acute or subacute infarct. 2. Mild to moderate patchy T2/FLAIR hyperintensities throughout the white matter are suggestive of probable chronic microvascular ischemic changes. ACT 112: Negative or not required by law. The above report was generated using voice recognition software. It may contain grammatical, syntax or spelling errors. Electronically signed by: Thomas Gresham M.D. 12/22/2019 3:01 PM PG Care Time/CCT Total # of Minutes Spent Total Time Spent with Patient: Total time spent is greater than 50% in coordination of care (as documented) at patient's floor/unit and/or counseling patient: Coding Level of Care Code 85536 Inpt Consult Level 5 Diagnoses Acute encephalopathy G93.40 Aphasia R47.01 Hypomagnesemia E83.42 Diabetes mellitus type 2, uncontrolled, with complications E11.8; E11.65 Chronic cerebral ischemia I67.82 Hyperlipidemia E78.2 Hyperlipidemia type: mixed hyperlipidemia Time Spent (min) 110 (1) Hyperlipidemia Hyperlipidemia type: mixed hyperlipidemia Qualified Code(s): E78.2 - Mixed hyperlipidemia
--- NOTE | 2019-12-24 14:46 | Discharge Summary ---
Date of Service December 24, 2019 Admission HPI Per Admitting Provider Ever Morales is a 64 year old male who presents to the ER with his due to altered mental state. The only thing the patient can tell me is that he is here because he is fatigued. History was taken from his at bedside. She reports he has not been his usual self but not particularly getting worse over the last few weeks. Having more of a problem answering her and being slower coming up with his answers and confused at times saying bizarre things. He has been getting good sleep and wearing his BiPAP at night. No medical attention was sought during this period. On review of systems she does report his urine has been more cloudy during this time. Today she noticed a much larger change starting when he got up this morning around 4am. She heard what sounded like vomiting in the bathroom. She found him out in the hallway, standing on top of the stairs holding the railing, just standing there, staring. He had a sudden diarrhea bowel movement while standing up (not watery). She had expected him to clean himself up but apparently he just went back to bed. He also had loss of urine control. Since then he has had a more profound generalized confusion where sometimes he will answer questions appropriately and at other times will talk normal worse but they will be nonsense. He can also read intermittently. When talker to him he appears to take more time processing the information. He was a telestroke in the ER due to concern for receptive dysphasia however given intermittent nature of symptoms stroke was not suspected. MRI brain in ER was negative for acute CVA. Principal Diagnosis delirium / multifactorial metabolic encephalopathy uncontrolled DM2 Discharge Exam gen aaox3 pleasant nad heent nc at mmm breathing unlabored no accessory msucles good effort skin no rashes no pallor or icterus cn 2-12 grossly intact gross motor/sensory intact good recent and remote recall normal mood and affect Discharge Data Allergies Allergy/AdvReac Type Severity Reaction Status Date / Time No Known Allergies Allergy Verified 08/31/19 14:23 Consultations 12/22/19 13:31 ED Decision to Admit Stat 12/23/19 18:04 Consult Neurology Routine Ordered Studies 12/22/19 11:13 CT angio head w con Stat CT angio neck with con Stat CT head/brain wo con Stat 12/22/19 11:43 MR brain wo con Stat 12/22/19 20:41 CT abd pelvis IV con only Urgent Hospital Course (1) Altered mental state: seems most likely delirium/metabolic encephalopathy brought about by dehydration (heat, rehydrating w sugary fluids and with his baseline sugar control the fluids were probably actually accentuating fluid loss by osmotic diuresis) compounded by both extra dehydration from diarrhea and inflammatory/metabolic stress from nonspecific colitis. seems back to baseline. is a little worrisome that he might get delirious "that easily" at 64 - discussed small vessel changes on MRI and relevance (and discussed critical importance of DM control as below) ---> very concerned about seizures given repeated episodes similarly. --> consulted neuro and d/w dr godinez at the bedside - agrees with above dx and also agrees seizures highly unlikely - will follow in office (2) Hyponatremia: hyponatremic dehydration - ipmroved. continue fluids for now (3) Diarrhea: resolved. nonspecific colitis - ?viral vs food poisoning - since resolved, no treatment needed. would want to ensure UTD on colo for completeness (4) Urinary symptom or sign: no UTI, no prostatitis. seems to have been tied together w delirium - no treatment needed (5) Diabetes mellitus type 2, uncontrolled, with complications: uncontrolled. extensive discussions on "why to care" ("high sugars clog arteries") and pathophys/progression of insulin resistance, tying it together w discussion of critical need for lifestyle change. he/ expressed good understanding and appreciation of education/discussion. also suggested 2hr pp glucose checks as a reasonable way to gauge immediate impact of food on metabolism. summarized on d/c instructions. (6) HTN (hypertension): reasonable. continue current. (7) Hypothyroidism: continue home synthroid (8) Chronic renal impairment, stage 2 (mild): w mild ELMA on admission - now improved (9) Coronary atherosclerosis of [place] coronary vessel: asymptomatic. continue home meds (10) Vascular disease: brain small vessel disease worrisome given age - extensive discussions on better sugar control. change to plavix considered as d/w neuro - but really, controlling risk for progression of vascular disease is far higher yield. (11) DVT prophylaxis: lovenox (12) Discharge planning issues: stable for home, PCP and neuro follow up as outpt. Total Time Total Time Spent Total Time Spent (In Minutes): >30 Discharge Plan Discharge Items Patient Disposition: Home - Self-Care Reason For Visit: AMS, HYPOMAGNESEMIA, DIARRHEA Discharge Diagnosis: confusion - most consistent with transient delirium (see below) Non-emergency contact: Primary Care Provider and Neurologist Call non-emergency contact if: you have any medication questions and your symptoms worsen Follow-up/Referrals: Russ Newsome MD [Primary Care Provider] - Diet: Carb Consistent or DM2 Addtl Attending Provider Instructions: confusion -after extensive review, it appears most consistent that your confusion was a form of delirium, or metabolic encephalopathy --> this occurs when physiologic factors come into play that essentially "throw your body off kilter" enough that your brain isn't able to function right. it's not a form of damage to the brain as much as it is a "short circuit" -- more azul to an intoxication - but instead of "being drunk" it's more of a "thrown off" by metabolic factors. for you, those appear to have been a perfect storm of the following: -dehydration superimposed on dehydration -- with as hot as it has been, we've been seeing a lot of people fall victim to the heat in the form of dehydration. for you, this played a role, but superimposed on that was the "osmotic diuresis" (sugar pulling fluid out of your body) of your baseline diabetes control coupled with the unlucky irony of trying to rehydrate yourself with a sugary drink. basically, when your sugar is north of about 200, that will dump sugar into your kidneys. because water follows where sugar goes (much like water follows salt) when your sugars are high like that, it causes you to pee off the fluid that you're trying to drink. essentially a sugar of 200 is like a low dose of a fluid pill, and then the higher your sugar gets the worse that diuretic effect becomes -inflammation and further dehydration from a colitis picture (that was most likely either viral or a short-lived bout of food poisoning) -- the diarrhea you had definitely added more dehydration to the mix, and the CT scan showing a picture of colitis shows evidence that it was from inflammation. given how transient it was, and how quickly everything appears to have resolved, the two types of causes that this could be would either have been a stomach bug that passed quickly, or a short lived food poisoning. neither of those require specific treatment or follow up, other than the "housekeeping measure" of anytime we see inflammation of the colon of someone over 50, it's a reasonable point in time to make sure you're up to date on a screening colonoscopy (which would not at all be an urgent thing -- more like by the end of the year) -baseline small vessel disease in the brain -- the MRI did not show strokes, bleeds, or masses, but it did show findings consistent with "chronic small vessel disease" -- what that tells us is that the small blood vessels in your brain are getting clogged up - predominantly with sugar - and leading to a more compromised state for blood flow. while this usually does not affect people on a normal day, the more blockages to small bloodflow there is, the more susceptible people can be to getting delirious from metabolic/physiologic problems. the biggest thing for this is outlined below - in getting your sugars under better control. -neither Dr Godinez (neurology) nor myself felt your symptoms or presentation consistent with seizures at this time, but, since they have been happening in a bit of a pattern over the last month, we're going to have you follow up with Dr Godinez in the office so he can keep an eye on this from a neurology perspective and dive into things further if the need arises. he's going to be working to get you scheduled for around late December/early January for the next follow up in this regard. uncontrolled diabetes -as we discussed, your high sugars did play a significant contributory role to what landed you in the hospital this time, but more worrisome, are giving us a concerning view of the future if you don't work to get things in line -the most important "why we care" about diabetes is basically that high sugar clogs arteries - and the higher you run//the longer you run high, the more you knock off blood vessels you can't get back -for A1c purposes, an A1c above 7 is about where the "line in the sand" is for high sugar clogging arteries -for an "any given moment sugar" it's a reasonable line that any time you see sugars above 150-160 there's going to be the possibility for blood vessel damage to occur -type 2 diabetes is a problem of "insulin resistance' -- your muscles essentially "get addicted" to insulin and want more -- insulin is the hormone that allows sugar to get out of your blood stream and into your muscles -when you eat anything that is dense with carbs (not just sugars, but also starches - so breads, potatoes, pastas, crusts, sweets, sugary drinks, etc) you'll spike a sugar -- to get that out of your bloodstream, your pancreas makes a big spike of insulin -- when your muscles see all that insulin, the next time they "want more" -- this is a progressive process that worsens over time if we keep fueling our body with starches/sugars/breads/etc -eventually your pancreas is producing insulin "at its redline" but your muscles still want more - this is basically when people "officially" become diabetic -- your pancreas isn't able to keep up with how much insulin your muscles want -the good news is that this is something that you can take control of -- generically speaking, type 2 diabetes is an illness that is on average about 80% lifestyle, 20% genetic, which means you have a tremendous amount of influence on how diabetic you are -if you start to eliminate starches/sugars/breads/potatoes etc - you should start to see a significant (sometimes dramatically significant) improvement in sugar control fairly quickly (other people it does come more slowly - but most of the time it hinges more on how "hardline" you eliminate the carbs) -- this then allows your muscles to get "less addicted" to insulin over time - regressing the insulin resistance/type 2 diabetes metabolism ---->as we discussed there, diabetics will often get misinformation/mixed messages when they get dietary counselling/diabetes coaching/etc -- where the professional will tell them to eat a smaller serving of the starch -- remember what we talked about - a half a cup of pasta is better only in the same way that shooting yourself in the foot is better than shooting yourself in the leg. the better mindset is that basically any simple/starchy/sugary carb is a "poison" and that you'd want to avoid it entirely -- then when you really feel like something carby, if it's a rare treat, you kind of view it as a "controlled poisoning" rather than an "ok in moderation" -- that sounds a little on the extreme side of the spectrum, but because bad carbs are a rampant part of our typical diet around here, i've found if i don't explain it in hardline stances, people don't necessarily get how absolutely critical lifestyle/eating is as it relates to sugar control -a nice trick to learn from your body is to check sugars about 1.5-2hrs after you eat - this will show you, in real time, the effects of what you ate on your body/metabolism. once you're under good control you'd want to avoid foods that cause you to go north of about 150-160. for the first few weeks you might find that you're higher than that as a matter of course, but as you improve eating and exercise, you'll start to see things fall in line. that also is a nice way of answering the "is food X good for me" question -- eat it, check a sugar later, and learn from it! ---just as important as the eating, but a simpler discussion, is exercise. 20- 30mins of nonstop movement (getting your heart rate up, breathing a little heavy) is as good as a dose of metformin in making your muscles less "addicted" to insulin -- unlike the metformin though (which wears off), repeated daily exercise will start to fundamentally rewrite your metabolism. in a perfect world, shoot for 20-30mins every day - but don't hold yourself to a "perfect or nothing" mindset - we're all human, and life gets in the way. instead, target 30mins every day, but realize that more is better than less, and something is better than nothing! ---> shoot for an A1c of 7 or less by [place]. if you're working at this hard, it's a lofty, but realistic goal. over time, you could theoretically even regress your insulin resistance to where you "put your diabetes into remission" -- and again there the overriding goal is to protect your brain from further clogs, and to protect you from heart attacks/etc as well Pending Studies at Discharge: No Stand-Alone Forms: My [facility] SPO, Smoking Cessation Medications and DC Order Prescriptions: Continued allopurinol 300 mg tablet 300 mg PO DAILY Qty: 90 RF: 3 atorvastatin 80 mg tablet 80 mg PO HS Qty: 90 RF: 3 levothyroxine 100 mcg tablet 100 mcg PO DAILY Qty: 90 RF: 1 metformin 1,000 mg tablet 1,000 mg PO BID Qty: 180 RF: 1 paroxetine HCl 20 mg tablet 20 mg PO DAILY Qty: 90 RF: 1 Januvia 100 mg tablet 100 mg PO DAILY Qty: 90 RF: 3 lisinopril 10 mg tablet 5 mg PO DAILY RF: 0 nitroglycerin 0.4 mg tablet, sublingual 0.4 mg SL UD PRN (Reason: chest pain) RF: 0 aspirin [Aspirin Low Dose] 81 mg tablet,delayed release (DR/EC) 81 mg PO DAILY RF: 0 omega-3 fatty acids-fish oil [Fish Oil] 360-1,200 mg capsule 1 cap PO DAILY RF: 0 metoprolol succinate 50 mg tablet extended release 24 hr 50 mg PO DAILY RF: 0 Discharge Orders: Discharge Order (Routine); Ordered 12/24/19 Ordered By: Ryan Ye/Other Patient Handouts: Long-Term Complications of Diabetes, Healthy Meals for Diabetes, Diabetes: The Benefits of Exercise, Managing Diabetes: The A1C Test Admission Data Admit Date/Time: 12/22/19 15:50 Attending Provider: Ryan Tucker Admit Provider: Terell Sharp Primary Care Provider: Russ Newsome Other Providers: Terell Sharp ; Ravi Godinez Other Interventions: Discharge Summary Assessment (RN) Last Done: 12/24/19 10:33 DC Date/Time DO NOT enter until pt leaves facility: 12/24/19 11:23 Coding Level of Care Code D/C Day Management >30 mins Diagnoses Altered mental state R41.0 Altered mental status type: delirium Hyponatremia E87.1 Diarrhea R19.7 Urinary symptom or sign R39.9 Diabetes mellitus type 2, uncontrolled, with complications E11.8; E11.65 HTN (hypertension) I10 Hypertension type: essential hypertension Hypothyroidism E03.9 Chronic renal impairment, stage 2 (mild) N18.2 Coronary atherosclerosis of [place] coronary vessel I25.10 [place] vs. transplanted heart: [place] heart Associated angina: without angina Vascular disease I99.9 DVT prophylaxis Z29.9 Discharge planning issues Z02.9
== END 2019-12-24 11:23 | disposition home or self-care (01) | DRG 640 ==
LOC: ED 10:34 → SUATTDRO 15:50 → 2N 15:50

== ENCOUNTER 2022-02-06 03:26 | Observation (INO) ==
[2022-02-06] MEDS ORDERED: SODIUM CHLORIDE 0.9% 1000ML 1,000 ML IV ONE (03:57)
[2022-02-06] MEDS ORDERED: ALBUT/IPRATROP 3MG/0.5MG NEB 3 ML VIAL NEB STA (03:57)
[2022-02-06] MEDS ORDERED: METOCLOPRAMIDE HCL INJ 5 MG/ML 2 ML VIAL IV STA (03:57)
[2022-02-06 03:58] LABS: Basophils # (auto) 0.06 K/uL (0-0.2); Basophils % (auto) 0.4 %; Eosinophils # (auto) 0.18 K/uL (0-0.50); Eosinophils % (auto) 1.3 %; Hematocrit (blood only) 45.9 % (40.1-51.0); Hemoglobin 15.3 g/dl (14.0-18.0); Immature Granulocytes # (auto) 0.11 K/uL (0.00-0.02); Immature Granulocytes % (auto) 0.8 %; Lymphocytes # (auto) 1.72 K/uL (1.2-3.4); Lymphocytes % (auto) 12.4 %; Mean Corpuscular Hemoglobin 30.1 pg (25.0-34.0); Mean Corpuscular Hgb Conc 33.3 g/dL (32.0-36.0); Mean Corpuscular Volume 90.4 fL (80.0-100.0); Mean Platelet Volume 9.4 fL (9.4-12.4); Monocytes # (auto) 0.76 K/uL (0.24-0.82); Monocytes % (auto) 5.5 %; Neutrophils # (auto) 11.02 K/uL (1.4-6.5); Neutrophils % (auto) 79.6 %; Platelet Count 290 K/uL (130-400); RDW Coefficient of Variation 13.5 % (11.5-14.5); RDW Standard Deviation 44.4 fL (36.4-46.3); Red Blood Count 5.08 M/uL (4.63-6.08); White Blood Count 13.85 K/ul (4.8-10.8)
[2022-02-06 04:14] LABS: Partial Thromboplastin Ratio 0.9; Partial Thromboplastin Time 24.4 Seconds (21.0-31.0); Prothrombin Time 10.5 Seconds (9.0-12.0)
[2022-02-06 04:17] LABS: Albumin Globulin Ratio 1.2 (0.9-2); Albumin Level 4.1 gm/dl (3.4-5.0); BUN Creatinine Ratio 18.1 (10-20); Bilirubin,Total 1.7 mg/dl (0.2-1.0); Calcium 9.2 mg/dl (8.5-10.1); Creatinine Clr Calc Pharmacy 69.6 ml/min; Est GFR (African American) 58.2 ml/min; Est GFR (Non-African American) 50.2 ml/min; Globulin 3.3 gm/dl (2.5-4.0); Magnesium 1.6 mg/dl (1.7-2.4); Total Protein 7.4 gm/dl (6.0-8.3)
[2022-02-06] MEDS ORDERED: OPTIRAY 300 500mL IV ONE (04:27)
--- NOTE | 2022-02-06 04:39 | Emergency Department Note ---
History of Present Illness General Chief complaint: Shortness of Breath/Dyspnea Stated complaint: SHORTNESS OF BREATH Time Seen by Provider: 02/06/22 03:52 History of Present Illness This 67-year-old presents to the ER complaining of severe headache shortness of breath and chest discomfort today Location: Head and chest Quality: Severe Severity: Severe Duration: Today Timing: Today Context: Patient symptoms got worse and he came in Modifying factors: better with Motrin; worse with activity Patient denies fevers, numbness, tingling, localized weakness, flulike illness. Home Medications Medication Instructions Recorded Confirmed Type aspirin 81 mg tablet,delayed 81 mg PO DAILY 02/04/19 11/14/21 History release (Kaela Low Dose Aspirin) omega-3 fatty acids-fish oil 360 1 cap PO DAILY 02/04/19 11/14/21 History mg-1,200 mg capsule (Fish Oil) blood sugar diagnostic (Accu-Chek 01/15/21 11/14/21 History Jennifer Plus test strips) atorvastatin 80 mg tablet 80 mg PO HS #90 tabs 03/05/21 11/14/21 Rx allopurinol 300 mg tablet 300 mg PO DAILY #90 tabs 03/07/21 11/14/21 Rx levothyroxine 100 mcg tablet 100 mcg PO DAILY #90 tabs 03/07/21 11/14/21 Rx lisinopril 5 mg tablet 5 mg PO DAILY #90 tabs 03/07/21 11/14/21 Rx metformin 1,000 mg tablet 1,000 mg PO BID #180 tabs 05/28/21 11/14/21 Rx paroxetine HCl 20 mg tablet 20 mg PO DAILY #90 tabs 05/28/21 11/14/21 Rx nitroglycerin 0.4 mg sublingual 0.4 mg sublingual UD PRN chest 11/14/21 11/14/21 Rx tablet pain #14 tabs magnesium oxide 400 mg PO DAILY #30 caps 11/30/21 Rx metoprolol succinate 50 mg 50 mg PO DAILY #90 tabs 12/04/21 Rx tablet,extended release 24 hr dulaglutide 1.5 mg/0.5 mL 1.5 mg (0.5 mL) subcut .weekly #6 12/24/21 Rx subcutaneous pen injector mL Allergies Allergy/AdvReac Type Severity Reaction Status Date / Time No Known Allergies Allergy Verified 11/14/21 10:14 Past Med/Surg History Medical History Colon polyps Diabetes mellitus, type 2 Diabetic nephropathy associated with type 2 diabetes mellitus Gout History of colon polyps History of positive PPD History of rheumatic fever History of rheumatic fever as a child Myocardial Infarction 2007 Skin cancer of nose Tubular adenoma of colon Vitamin D deficiency Surgical History History of cardiac cath 2007 @[facility] History of colonoscopy History of heart artery stent 2008 @ [facility] 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 History of open reduction and internal fixation (ORIF) procedure R ankle History of tonsillectomy and adenoidectomy History of tooth extraction wisdom teeth Family History Mother , age 79 of complications of diabetes Hypothyroidism Pulmonary tuberculosis Diabetes Father , age 73 of heart disease Coronary heart disease Diabetes Myocardial infarction Stroke Sister Renal failure Heart disease Diabetes Brother Hypothyroidism Grandfather (Paternal) Lung cancer Uncle Myocardial infarction Denies family history of Ovarian cancer Prostate cancer Breast cancer Colorectal cancer Social History Smoking Status: Never smoker Tobacco Type: Smokeless Tobacco (Dip or Chew) Second Hand Exposure: No; Hx Alcohol Use: Yes Alcohol type: beer Alcohol Intake Frequency: Monthly or Less Alcohol Intake Frequency Comment: Rare Hx Substance Use: No Preferred Language: Kyrgyz Communication Ability: Effective Visual Impairment: Limited Hearing Ability: Normal Wholesale Buyer Required: No Beliefs That Will Affect Care: None marital status: Current Living Situation: Spouse current occupational status: retired 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) How many Children do You have: 3 Feels Safe at Home: Yes Childhood Exposure to Second-Hand Smoke: No caffeine: Yes Dental Care, Regularly: No Physical Activity Frequency: Does not Exercise Seatbelt Use: always Sunscreen Use: No Assistive Devices: None Review of Systems A total of 10 systems reviewed and were otherwise negative Physical Exam Vital Signs Vital Signs - 24 hr 02/06/22 03:29 02/06/22 03:29 02/06/22 03:29 Temperature 36.6 C Temperature Source Temporal Artery Scan Pulse Rate 114 H Pulse Rate from SpO2 Sensor Respiratory Rate 20 Respiratory Effort / Characteristics Non-Labored Spontaneous Non-Labored Spontaneous Respiratory Depth Normal Normal Respiratory Pattern Regular Regular Blood Pressure 213/109 H Blood Pressure Mean 143 Blood Pressure Position Sitting Pulse Oximetry 94 94 Oxygen Delivery Method Room Air Room Air Oxygen Flow Rate Sepsis Recent Fever Within 48 Hours No Sepsis New/Unexplained Change in Mental Status N/A Sepsis Action Taken by Nursing No Action Required Oxygen Flow Rate - Titration Pulse Oximetry Post Tiitration 02/06/22 03:58 02/06/22 03:58 02/06/22 03:56 Temperature Temperature Source Pulse Rate 111 H Pulse Rate from SpO2 Sensor 112 H Respiratory Rate 19 Respiratory Effort / Characteristics SOB on Exertion Respiratory Depth Respiratory Pattern Blood Pressure Blood Pressure Mean Blood Pressure Position Pulse Oximetry 93 93 92 Oxygen Delivery Method Room Air Room Air Oxygen Flow Rate Sepsis Recent Fever Within 48 Hours Sepsis New/Unexplained Change in Mental Status Sepsis Action Taken by Nursing Oxygen Flow Rate - Titration Pulse Oximetry Post Tiitration 02/06/22 04:20 02/06/22 04:30 02/06/22 04:58 Temperature Temperature Source Pulse Rate 110 H Pulse Rate from SpO2 Sensor 111 H 110 H Respiratory Rate 14 Respiratory Effort / Characteristics Respiratory Depth Respiratory Pattern Blood Pressure 181/114 H Blood Pressure Mean 136 Blood Pressure Position Pulse Oximetry 99 99 88 L Oxygen Delivery Method Room Air Oxygen Flow Rate Sepsis Recent Fever Within 48 Hours Sepsis New/Unexplained Change in Mental Status Sepsis Action Taken by Nursing Oxygen Flow Rate - Titration 4 Pulse Oximetry Post Tiitration 91 02/06/22 05:58 02/06/22 04:42 02/06/22 04:42 Temperature Temperature Source Pulse Rate 111 H Pulse Rate from SpO2 Sensor 110 H Respiratory Rate Respiratory Effort / Characteristics Respiratory Depth Respiratory Pattern Blood Pressure 185/111 H 189/109 H Blood Pressure Mean 135 Blood Pressure Position Pulse Oximetry 96 Oxygen Delivery Method Oxygen Flow Rate Sepsis Recent Fever Within 48 Hours Sepsis New/Unexplained Change in Mental Status Sepsis Action Taken by Nursing Oxygen Flow Rate - Titration Pulse Oximetry Post Tiitration 02/06/22 05:00 02/06/22 05:00 02/06/22 05:30 Temperature Temperature Source Pulse Rate 108 H 107 H Pulse Rate from SpO2 Sensor 107 H 108 H Respiratory Rate 24 23 Respiratory Effort / Characteristics Respiratory Depth Respiratory Pattern Blood Pressure 191/136 H Blood Pressure Mean 154 Blood Pressure Position Pulse Oximetry 92 93 Oxygen Delivery Method Oxygen Flow Rate Sepsis Recent Fever Within 48 Hours Sepsis New/Unexplained Change in Mental Status Sepsis Action Taken by Nursing Oxygen Flow Rate - Titration Pulse Oximetry Post Tiitration 02/06/22 05:51 02/06/22 05:51 02/06/22 06:00 Temperature Temperature Source Pulse Rate 110 H Pulse Rate from SpO2 Sensor Respiratory Rate Respiratory Effort / Characteristics Respiratory Depth Respiratory Pattern Blood Pressure 185/111 H 161/97 H Blood Pressure Mean 135 118 Blood Pressure Position Pulse Oximetry Oxygen Delivery Method Oxygen Flow Rate Sepsis Recent Fever Within 48 Hours Sepsis New/Unexplained Change in Mental Status Sepsis Action Taken by Nursing Oxygen Flow Rate - Titration Pulse Oximetry Post Tiitration 02/06/22 06:00 02/06/22 06:29 02/06/22 06:29 Temperature Temperature Source Pulse Rate 110 H 106 H Pulse Rate from SpO2 Sensor 111 H 106 H Respiratory Rate 28 H Respiratory Effort / Characteristics Respiratory Depth Respiratory Pattern Blood Pressure 159/88 H Blood Pressure Mean 111 Blood Pressure Position Pulse Oximetry 91 88 L Oxygen Delivery Method Room Air Oxygen Flow Rate Sepsis Recent Fever Within 48 Hours Sepsis New/Unexplained Change in Mental Status Sepsis Action Taken by Nursing Oxygen Flow Rate - Titration Pulse Oximetry Post Tiitration 02/06/22 06:30 Temperature Temperature Source Pulse Rate 105 H Pulse Rate from SpO2 Sensor 105 H Respiratory Rate 17 Respiratory Effort / Characteristics Respiratory Depth Respiratory Pattern Blood Pressure Blood Pressure Mean Blood Pressure Position Pulse Oximetry 93 Oxygen Delivery Method Oxygen Flow Rate 4 Sepsis Recent Fever Within 48 Hours Sepsis New/Unexplained Change in Mental Status Sepsis Action Taken by Nursing Oxygen Flow Rate - Titration Pulse Oximetry Post Tiitration VITALS: Vitals are noted on the nurse's note and reviewed by myself. Vital signs hypertensive. GENERAL: White male who appears in pain hypertensive, in no acute distress, nondiaphoretic, well-developed well-nourished. SKIN: The skin was without rashes, erythema, edema, or bruising. There is no tenting of the skin. Capillary reflex less than 2 seconds. HEAD: Normocephalic atraumatic. EARS: External auditory canals clear EYES: Pupils equal round and reactive to light and accommodation. Conjunctivae without injection, sclerae without icterus. Extraocular movements intact. NOSE: Patent, turbinates without inflammation or discharge. MOUTH: Mucous membranes moist. Pharynx without erythema or exudate. Uvula midline. Airway patent. Tongue does not deviate. NECK: Supple without nuchal rigidity. No lymphadenopathy. No thyromegaly. Cervical spine is nontender. No JVD. HEART: Regular rate and rhythm LUNGS: Mild diffuse end expiratory wheezes, without rales or rhonchi. No retr actions or accessory muscle use. ABDOMEN: Positive bowel sounds x 4. Normal tympanic percussion. Soft, nontender, without masses or organomegaly. Thibodeaux sign negative. No guarding or rebound tenderness. No CVA tenderness MUSCULOSKELETAL: No muscle atrophy, erythema, or edema noted. NEURO: Patient was alert and oriented to person place and time. Normal sensation to light and sharp touch. No focal neurological deficits. Cranial nerves II through XII grossly intact. No prior drift. Syllable exam intact. Course Administered Medications Discontinued Medications Albuterol (Albut/Ipratrop 3mg/0.5mg Neb 3 Ml Vial) 3 ml NEB NOW STA; Protocol Stop: 02/06/22 03:58 Last Admin: 02/06/22 04:19 Dose: 3 ml Documented By: OPAL Magnesium Sulfate/Dextrose (Magnesium Sulfate / D5w) 1 gm in 100 mls @ 200 mls/hr IV Q30M CHRISTINA Stop: 02/06/22 05:47 Last Infusion: 02/06/22 06:36 Dose: 0 mls/hr Documented By: Admin: 02/06/22 05:59 Dose: 200 mls/hr Documented By: Infusion: 02/06/22 05:56 Dose: 0 mls/hr Documented By: Admin: 02/06/22 04:52 Dose: 200 mls/hr Documented By: OPAL Ioversol (Optiray 300 500ml) 125 ml IV ONCE ONE Stop: 02/06/22 04:28 Last Admin: 02/06/22 04:27 Dose: 119 ml Documented By: NICHOLAS Lorazepam (Lorazepam 2 Mg/1 Ml Vial) 1 mg IV NOW STA; Protocol Stop: 02/06/22 04:45 Last Admin: 02/06/22 04:49 Dose: 1 mg Documented By: OPAL Methylprednisolone (Methylprednisolone 125 Mg/2 Ml Vial) 125 mg IV NOW STA Stop: 02/06/22 05:38 Last Admin: 02/06/22 05:57 Dose: 125 mg Documented By: OPAL Metoclopramide HCl (Metoclopramide Hcl Inj 5 Mg/Ml 2 Ml Vial) 10 mg IV NOW STA Stop: 02/06/22 03:58 Last Admin: 02/06/22 04:19 Dose: 10 mg Documented By: OPAL Metoprolol Tartrate (Metoprolol Tartrate 1 Mg/Ml Vial) 5 mg IV NOW STA Stop: 02/06/22 05:39 Last Admin: 02/06/22 05:58 Dose: 5 mg Documented By: OPAL Medical Decision Making Medical Records Attestation: I reviewed the patient's medical records. Home Medications Current Medication List: was personally reviewed by ma Laboratory Data Attestation: I reviewed the patient's lab results. Result diagrams: 02/06/22 03:45 02/06/22 03:45 Lab Results 02/06/22 02/06/22 02/06/22 Range/Units 03:45 03:45 03:45 WBC 13.85 H (4.8-10.8) K/ul RBC 5.08 (4.63-6.08) M/uL Hgb 15.3 (14.0-18.0) g/dl Hct 45.9 (40.1-51.0) % MCV 90.4 (80.0-100.0) fL MCH 30.1 (25.0-34.0) pg MCHC 33.3 (32.0-36.0) g/dL RDW Std Deviation 44.4 (36.4-46.3) fL RDW Coeff of Martín 13.5 (11.5-14.5) % Plt Count 290 (130-400) K/uL MPV 9.4 (9.4-12.4) fL Immature Gran % (Auto) 0.8 % Neut % (Auto) 79.6 % Lymph % (Auto) 12.4 % [place] % (Auto) 5.5 % Eos % (Auto) 1.3 % Baso % (Auto) 0.4 % Neut # (Auto) 11.02 H (1.4-6.5) K/uL Lymph # (Auto) 1.72 (1.2-3.4) K/uL [place] # (Auto) 0.76 (0.24-0.82) K/uL Eos # (Auto) 0.18 (0-0.50) K/uL Baso # (Auto) 0.06 (0-0.2) K/uL Immature Gran # (Auto) 0.11 H (0.00-0.02) K/uL PT 10.5 (9.0-12.0) Seconds INR 1.0 (0.9-1.1) APTT 24.4 (21.0-31.0) Seconds PTT Ratio 0.9 Sodium 135 L (136-145) mmol/L Potassium 5.0 (3.5-5.1) mmol/L Chloride 102 (98-107) mmol/L Carbon Dioxide 25 (21-32) mmol/L Anion Gap 8 (3-11) BUN 26 H (6-23) mg/dl Creatinine 1.44 H (0.6-1.4) mg/dl Est Cr Clr Drug Dosing 69.6 ml/min Est GFR ( Amer) 58.2 ml/min Est GFR (Non-Af Amer) 50.2 ml/min BUN/Creatinine Ratio 18.1 (10-20) Glucose 225 H (70-99(Fasting)) mg/dl Calcium 9.2 (8.5-10.1) mg/dl Magnesium 1.6 L (1.7-2.4) mg/dl Total Bilirubin 1.7 H (0.2-1.0) mg/dl AST 21 (13-39) U/L ALT 28 (7-52) U/L Alkaline Phosphatase 91 (34-104) U/L Troponin I High Sens 16.9 (0-20) pg/ml B-Natriuretic Peptide (0-100) pg/ml Total Protein 7.4 (6.0-8.3) gm/dl Albumin 4.1 (3.4-5.0) gm/dl Globulin 3.3 (2.5-4.0) gm/dl Albumin/Globulin Ratio 1.2 (0.9-2) SARS-CoV-2, RNA, NAAT (NEGATIVE) 02/06/22 02/06/22 Range/Units 04:22 05:00 WBC (4.8-10.8) K/ul RBC (4.63-6.08) M/uL Hgb (14.0-18.0) g/dl Hct (40.1-51.0) % MCV (80.0-100.0) fL MCH (25.0-34.0) pg MCHC (32.0-36.0) g/dL RDW Std Deviation (36.4-46.3) fL RDW Coeff of Martín (11.5-14.5) % Plt Count (130-400) K/uL MPV (9.4-12.4) fL Immature Gran % (Auto) % Neut % (Auto) % Lymph % (Auto) % [place] % (Auto) % Eos % (Auto) % Baso % (Auto) % Neut # (Auto) (1.4-6.5) K/uL Lymph # (Auto) (1.2-3.4) K/uL [place] # (Auto) (0.24-0.82) K/uL Eos # (Auto) (0-0.50) K/uL Baso # (Auto) (0-0.2) K/uL Immature Gran # (Auto) (0.00-0.02) K/uL PT (9.0-12.0) Seconds INR (0.9-1.1) APTT (21.0-31.0) Seconds PTT Ratio Sodium (136-145) mmol/L Potassium (3.5-5.1) mmol/L Chloride (98-107) mmol/L Carbon Dioxide (21-32) mmol/L Anion Gap (3-11) BUN (6-23) mg/dl Creatinine (0.6-1.4) mg/dl Est Cr Clr Drug Dosing ml/min Est GFR ( Amer) ml/min Est GFR (Non-Af Amer) ml/min BUN/Creatinine Ratio (10-20) Glucose (70-99(Fasting)) mg/dl Calcium (8.5-10.1) mg/dl Magnesium (1.7-2.4) mg/dl Total Bilirubin (0.2-1.0) mg/dl AST (13-39) U/L ALT (7-52) U/L Alkaline Phosphatase (34-104) U/L Troponin I High Sens (0-20) pg/ml B-Natriuretic Peptide 130 H (0-100) pg/ml Total Protein (6.0-8.3) gm/dl Albumin (3.4-5.0) gm/dl Globulin (2.5-4.0) gm/dl Albumin/Globulin Ratio (0.9-2) SARS-CoV-2, RNA, NAAT NEGATIVE (NEGATIVE) Imaging Data Attestation: I personally reviewed and interpreted this imaging study as follows: Radiologist's Impression: Chest CTA 02/06/22 03:57 CT ANGIOGRAM OF THE CHEST CLINICAL HISTORY: Dyspnea. Headache and dizziness. COMPARISON STUDY: Chest x-ray dated 12/22/2019. TECHNIQUE: Following the IV administration of 119 cc of Optiray 300, CT angiogram of the chest was performed from the upper abdomen to the thoracic inlet utilizing the pulmonary embolus protocol. Images are reviewed in the axial, sagittal, and coronal planes. 3-D MIPS images are created and assessed. IV contrast was administered without complication. A dose lowering technique was utilized adhering to the principles of ALARA. The examination is degraded by motion artifact, as well as by streak artifact from the arms which could not be elevated above the chest. FINDINGS: Thyroid: Imaged portions of the thyroid gland are normal in size and attenuation. Thoracic aorta: The thoracic aorta is normal in caliber and demonstrates standard 3-vessel arch anatomy. No dissection is seen. Pulmonary vasculature: The pulmonary trunk is normal in caliber. There are no filling defects identified in main, lobar, or proximal segmental pulmonary branches to suggest pulmonary embolus. Evaluation of the segmental and subsegmental branches is degraded by motion artifact and suboptimal contrast opacification. Heart: The heart is mildly enlarged and without pericardial effusion. The coronary arteries are densely calcified. Lungs and pleural spaces: Evaluation of the lung parenchyma is degraded by motion artifact. No airspace consolidation or pleural effusion is identified. Intralobular septal thickening is seen throughout both lungs. Mediastinum: Mildly enlarged mediastinal lymph nodes measure up to 14 mm in s hort axis. Several of these contain calcifications. Kasia: Clear. Axillae: There is no axillary lymphadenopathy. Upper abdomen: There is a small hiatal hernia. Partially visualized upper abdominal viscera is otherwise grossly unremarkable. Skeletal structures: No lytic or blastic bony lesions are seen. Degenerative change is noted throughout the thoracic spine. Chronic appearing anterior rib fr actures are seen bilaterally. IMPRESSION: 1 There is no evidence of central pulmonary embolus in the main, lobar, or proximal segmental pulmonary arteries. The segmental and subsegmental branches are not well assessed. 2. Cardiomegaly with evidence of congestive failure. 3. No airspace consolidation or pleural effusion is identified. 4. Mildly enlarged mediastinal lymph nodes are nonspecific and may be chronic. ACT 112: Negative or not required by law. Electronically signed by: Parveen Mckeon M.D. 02/06/2022 7:06 AM MDM Narrative Prior records/ancillary studies reviewed and summarized above. Nursing notes reviewed. Additional history obtained from family. The patient's history was concerning for severe headache chest pain and dyspnea Differential diagnosis: Etiologies such as metabolic, infection, hypo/hyperglycemia, electrolyte abnor malities, cardiac sources, intracerebral event, toxicologic, neurologic, as well as others were entertained. Physical examination: As above. ER treatment provided: IV Lock An order was placed for continuous cardiac monitoring. The monitor shows a rate of 60-1 50 with a sinus rhythm. Reglan, DuoNeb, ativan, Solu-Medrol, metoprolol On reassessment the patient felt better. Diagnostics interpretation by me: ECG: Ordered for dyspnea EKG: Normal sinus, normal intervals, no acute ST-T wave changes. Impression sinus tachycardia 112 interpreted by myself I think arrhythmia is unlikely. EKG shows normal sinus rhythm with no interval abnormalities such as QT prolongation or WPW. There are no findings to suggest Brugada syndrome. Cardiac monitoring in the emergency department reveals no tachycardic or bradycardic dysrhythmia. Hypertrophic cardiomyopathy was considered but there are no clear historical elements pointing toward this. EKG is not suggestive. The QRS voltage is not extremely large and there are no suggestive Q waves. The labs revealed creat 1.44 slightly higher from baseline, leukocytosis Imaging studies: Preliminary Findings Only See Final Report For Complete Findings CTA NECK: Atherosclerotic calcifications are present involving the distal common and proximal internal carotid arteries bilaterally. An approximately 40% stenosis results at the proximal right ICA The right vertebral artery becomes smaller in caliber as it becomes intradural in location and contributes only minimally to the formation of the basilar. This likely reflects anatomic variation Radiologist: Willard Melara MD Study ready at 04:43 and initial results transmitted at 05:03 Preliminary Findings Only See Final Report For Complete Findings CTA HEAD: No large vessel stenosis or occlusion Radiologist: Willard Melara MD Study ready at 04:43 and initial results transmitted at 05:07 Communications: CT HEAD: No ICH, mass effect or edema. No evidence of acute cortical stroke. Periventricular small vessel ischemic change. Visualized sinuses and mastoid air cells are clear. Radiologist: Willard Melara MD Consultation: A consultation was placed with the hospitalist. The case was discussed and diagnostics were reviewed. The patient was evaluated in the ER for further treatment. Exam and history seem consistent with hypertensive urgency with acute kidney injury shortness of breath who was hypoxic. Patient was medicated as above he felt somewhat better. Blood pressure still high. Sats are low. He will be evaluated by hospitalist for admission.By the evaluation outlined above emergent etiologies such as infection, electrolyte abnormalities, intracerebral event, toxologic, neurologic, abnormalities blood glucose, metabolic, as well as others were deemed relatively unlikely. The pt informed about the findings as listed above. All questions were answered and pleased with the treatment. The chart was completed utilizing [employer] Speech voice recognition software. Grammatical errors, random word insertions, pronoun errors, and incomplete sentences are an occassional consequence of this system due to software limitations, ambient noise, and hardware issues. Any formal questions or concerns about the content, text, or information contained within the body of this dictation should be directly addressed to the physician clinic office assistant for clarification. Impression & Plan Hypertensive urgency, Headache, Acute dyspnea Discharge Plan Visit Data Chief Complaint: Shortness of Breath/Dyspnea Stated Complaint: SHORTNESS OF BREATH ED Provider: Lázaro Paul ED Midlevel Provider: Jillian Watts Discharge Problem: Hypertensive urgency, Headache, Acute dyspnea Patient Disposition: Admitted As Inpatient Condition: Good Forms Stand Alone Forms: My [facility] Fast Drinks Prescriptions Prescriptions: No Action atorvastatin 80 mg tablet 80 mg PO HS Qty: 90 3RF lisinopril 5 mg tablet 5 mg PO DAILY Qty: 90 3RF allopurinol 300 mg tablet 300 mg PO DAILY Qty: 90 3RF levothyroxine 100 mcg tablet 100 mcg PO DAILY Qty: 90 3RF metformin 1,000 mg tablet 1,000 mg PO BID Qty: 180 3RF paroxetine HCl 20 mg tablet 20 mg PO DAILY Qty: 90 3RF magnesium oxide 400 mg magnesium capsule 400 mg PO DAILY Qty: 30 5RF metoprolol succinate 50 mg tablet extended release 24 hr 50 mg PO DAILY Qty: 90 3RF dulaglutide 1.5 mg/0.5 mL pen injector 1.5 mg SQ .weekly Qty: 6 1RF (DME) Accu-Chek Jennifer Plus test strp Strip See Rx Instructions .ROUTE .MEDSUPPLY Rx Instructions: Test blood sugars 3 times a day PRN nitroglycerin 0.4 mg tablet, sublingual 0.4 mg SL UD PRN (Reason: chest pain) Qty: 14 6RF aspirin [Kaela Low Dose Aspirin] 81 mg tablet,delayed release (DR/EC) 81 mg PO DAILY omega-3 fatty acids-fish oil [Fish Oil] 360-1,200 mg capsule 1 cap PO DAILY Referrals Referrals: Russ Newsome MD [Primary Care Provider] -
[2022-02-06] MEDS ORDERED: LORazepam 2 MG/1 ML VIAL IV STA (04:44)
[2022-02-06] MEDS: MAGNESIUM SULFATE / D5W 1 GM/100 ML BAG IV SCH ×2 (04:52→05:59)
[2022-02-06 05:02] LABS: Troponin I High Sensitivity 16.9 pg/ml (0-20)
[2022-02-06] MEDS ORDERED: methylPREDNISolone 125 MG/2 ML VIAL IV STA (05:37)
[2022-02-06] MEDS ORDERED: METOPROLOL TARTRATE 1 MG/ML VIAL IV STA (05:38)
--- NOTE | 2022-02-06 06:29 | History & Physical Report ---
Date of Service February 06, 2022 Assessment & Plan (1) Hypertensive urgency: Plan: ?Secondary to NSAID use. Blood pressure elevated upon arrival, improved now with use of IV Metoprolol. Respiratory status improved as well -Continue to monitor -Resume home blood pressure medications - Lisinopril -Consider Nitro, Lasix, BiPAP if respiratory status declines (2) Acute dyspnea: Plan: Improving with BP control. Possibly secondary to hypertensive urgency -Management with BP control -Consider Lasix (3) Hyperlipidemia: Plan: Chronic. -Continue Atorvastatin (4) Coronary atherosclerosis of [place] coronary vessel: Plan: Chronic. No chest pain -Continue ASA, Atorvastatin, Lisinopril, Metoprolol (5) Chronic renal impairment, stage 2 (mild): Plan: Mild worsening of renal function - poorly controlled BP may be contributing. -Montior UOP -Monitor electrolytes -Avoid nephrotoxins -Renal dosing where needed (6) Hypothyroidism: Plan: Chronic -Continue Synthroid 100mcg po daily (7) Obstructive sleep apnea: Plan: CPAP qHS and PRN (8) Diabetes mellitus type 2, uncontrolled, with complications: Plan: Chronic -Lantus 10u BID -ISS History of Present Illness Chief Complaint: SOB Primary Care Provider: Russ Newsome MD Ever Morales is a 67yo male with history of DM, Gout, SOCORRO, CAD, HTN, HLP presenting with SOB. History obtained predominantly from as patient is somnolent after receiving Ativan. Patient was in his usual state of health yesterday. This AM he woke up around 01:30 and said he had a bad headache. He went downstairs and took Motrin x 2. Of note, he typically takes Tylenol due to his medical comorbidities of HTN and CKD, however, took Ibuprofen tonight by mistake. He woke up several hours later complaining of shortness of breath. Patient hypertensive upon arrival with BP of 213/109, HR of 114. Saturations have been 88-92% on room air. Patient arousable during exam. Reports headache has improved. Denies chest pain, palpitations, cough. No report of fever, chills, abdominal pain, nausea, vomiting, diarrhea or constipation. He had some mild wheezing noted by his yesterday, otherwise, no additional complaints. ER Course: Reglan 10mg IV Albuterol 3mL Ativan 1mg IV Magnesium 2gm IV Solumedrol 125mg Metoprolol 5mg IV Allergies Allergy/AdvReac Type Severity Reaction Status Date / Time No Known Allergies Allergy Verified 11/14/21 10:14 Home Medications Medication Instructions Recorded Confirmed Type aspirin 81 mg tablet,delayed 81 mg PO DAILY 02/04/19 11/14/21 History release (Kaela Low Dose Aspirin) omega-3 fatty acids-fish oil 360 1 cap PO DAILY 02/04/19 11/14/21 History mg-1,200 mg capsule (Fish Oil) blood sugar diagnostic (Accu-Chek 01/15/21 11/14/21 History Jennifer Plus test strips) atorvastatin 80 mg tablet 80 mg PO HS #90 tabs 03/05/21 11/14/21 Rx allopurinol 300 mg tablet 300 mg PO DAILY #90 tabs 03/07/21 11/14/21 Rx levothyroxine 100 mcg tablet 100 mcg PO DAILY #90 tabs 03/07/21 11/14/21 Rx lisinopril 5 mg tablet 5 mg PO DAILY #90 tabs 03/07/21 11/14/21 Rx metformin 1,000 mg tablet 1,000 mg PO BID #180 tabs 05/28/21 11/14/21 Rx paroxetine HCl 20 mg tablet 20 mg PO DAILY #90 tabs 05/28/21 11/14/21 Rx nitroglycerin 0.4 mg sublingual 0.4 mg sublingual UD PRN chest 11/14/21 11/14/21 Rx tablet pain #14 tabs magnesium oxide 400 mg PO DAILY #30 caps 11/30/21 Rx metoprolol succinate 50 mg 50 mg PO DAILY #90 tabs 12/04/21 Rx tablet,extended release 24 hr dulaglutide 1.5 mg/0.5 mL 1.5 mg (0.5 mL) subcut .weekly #6 12/24/21 Rx subcutaneous pen injector mL Past Med/Surg History Medical History Colon polyps Diabetes mellitus, type 2 Diabetic nephropathy associated with type 2 diabetes mellitus Gout History of colon polyps History of positive PPD History of rheumatic fever History of rheumatic fever as a child Myocardial Infarction 2007 Skin cancer of nose Tubular adenoma of colon Vitamin D deficiency Surgical History History of cardiac cath 2007 @[facility] History of colonoscopy History of heart artery stent 2007 @ [facility] 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 History of open reduction and internal fixation (ORIF) procedure R ankle History of tonsillectomy and adenoidectomy History of tooth extraction wisdom teeth Family History Mother , age 79 of complications of diabetes Hypothyroidism Pulmonary tuberculosis Diabetes Father , age 73 of heart disease Coronary heart disease Diabetes Myocardial infarction Stroke Sister Renal failure Heart disease Diabetes Brother Hypothyroidism Grandfather (Paternal) Lung cancer Uncle Myocardial infarction Denies family history of Ovarian cancer Prostate cancer Breast cancer Colorectal cancer Social History Smoking Status: Never smoker Tobacco Type: Smokeless Tobacco (Dip or Chew) Second Hand Exposure: No; Hx Alcohol Use: Yes Alcohol type: beer Alcohol Intake Frequency: Monthly or Less Alcohol Intake Frequency Comment: Rare Hx Substance Use: No Preferred Language: Libyan Communication Ability: Effective Visual Impairment: Limited Hearing Ability: Normal Roll Setter Required: No Beliefs That Will Affect Care: None marital status: Current Living Situation: Spouse current occupational status: retired 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) How many Children do You have: 3 Feels Safe at Home: Yes Childhood Exposure to Second-Hand Smoke: No caffeine: Yes Dental Care, Regularly: No Physical Activity Frequency: Does not Exercise Seatbelt Use: always Sunscreen Use: No Assistive Devices: None Review of Systems Review of Systems: All systems reviewed & are unremarkable except as noted in HPI & below Physical Exam Physical Exam: General: patient resting, arousable, answers some questions then returns to sleep, NAD, non-toxic in appearance, AA&O x 4 Skin: warm, dry, intact, no rashes or lesions HEENT: NC/AT, PERRL, EOMI, anicteric sclera, conjunctiva without injection, external ear normal to inspection and nontender, nares patent, moist mucus membranes, dentition intact, no oropharyngeal lesions, neck supple, trachea mid line, no LAD, no thyromegaly, no JVD Heart: +S1/S2, regular, no m/r/g Lungs: equal air entry bilaterally, no rales/rhonchi/wheezes Abd: +BS, soft, NT/ND, no masses/organomegaly/ascites Ext: warm, 2+ pulses in UE/LE bilaterally, no clubbing/cyanosis or edema Neuro: nonfocal, patient AA&O x 4, speech intact, no facial droop, moving all extremities on command with equal strength 5/5 Results & Data Results & Data ([facility]) Vital Signs (Past 12 Hours) Vital Signs Temp Pulse Resp BP Pulse Ox O2 Del Method 02/06/22 05:58 111 H 185/111 H 02/06/22 04:58 88 L Room Air 02/06/22 04:30 181/114 H 99 02/06/22 04:20 110 H 14 99 02/06/22 03:56 111 H 19 92 02/06/22 03:58 93 Room Air 02/06/22 03:58 93 Room Air 02/06/22 03:29 94 Room Air 02/06/22 03:29 36.6 C 114 H 20 213/109 H 94 Room Air Laboratory Results Laboratory Results WBC 13.85 K/ul (4.8-10.8) H 02/06/22 03:45 RBC 5.08 M/uL (4.63-6.08) 02/06/22 03:45 Hgb 15.3 g/dl (14.0-18.0) 02/06/22 03:45 Hct 45.9 % (40.1-51.0) 02/06/22 03:45 MCV 90.4 fL (80.0-100.0) 02/06/22 03:45 MCH 30.1 pg (25.0-34.0) 02/06/22 03:45 MCHC 33.3 g/dL (32.0-36.0) 02/06/22 03:45 RDW Std Deviation 44.4 fL (36.4-46.3) 02/06/22 03:45 RDW Coeff of Martín 13.5 % (11.5-14.5) 02/06/22 03:45 Plt Count 290 K/uL (130-400) 02/06/22 03:45 MPV 9.4 fL (9.4-12.4) 02/06/22 03:45 Immature Gran % (Auto) 0.8 % 02/06/22 03:45 Neut % (Auto) 79.6 % 02/06/22 03:45 Lymph % (Auto) 12.4 % 02/06/22 03:45 Pennington % (Auto) 5.5 % 02/06/22 03:45 Eos % (Auto) 1.3 % 02/06/22 03:45 Baso % (Auto) 0.4 % 02/06/22 03:45 Neut # (Auto) 11.02 K/uL (1.4-6.5) H 02/06/22 03:45 Lymph # (Auto) 1.72 K/uL (1.2-3.4) 02/06/22 03:45 Pennington # (Auto) 0.76 K/uL (0.24-0.82) 02/06/22 03:45 Eos # (Auto) 0.18 K/uL (0-0.50) 02/06/22 03:45 Baso # (Auto) 0.06 K/uL (0-0.2) 02/06/22 03:45 Immature Gran # (Auto) 0.11 K/uL (0.00-0.02) H 02/06/22 03:45 PT 10.5 Seconds (9.0-12.0) 02/06/22 03:45 INR 1.0 (0.9-1.1) 02/06/22 03:45 APTT 24.4 Seconds (21.0-31.0) 02/06/22 03:45 PTT Ratio 0.9 02/06/22 03:45 Sodium 135 mmol/L (136-145) L 02/06/22 03:45 Potassium 5.0 mmol/L (3.5-5.1) 02/06/22 03:45 Chloride 102 mmol/L (98-107) 02/06/22 03:45 Carbon Dioxide 25 mmol/L (21-32) 02/06/22 03:45 Anion Gap 8 (3-11) 02/06/22 03:45 BUN 26 mg/dl (6-23) H 02/06/22 03:45 Creatinine 1.44 mg/dl (0.6-1.4) H 02/06/22 03:45 Est Cr Clr Drug Dosing 69.6 ml/min 02/06/22 03:45 Est GFR ( Amer) 58.2 ml/min 02/06/22 03:45 Est GFR (Non-Af Amer) 50.2 ml/min 02/06/22 03:45 BUN/Creatinine Ratio 18.1 (10-20) 02/06/22 03:45 Glucose 225 mg/dl (70-99(Fasting)) H 02/06/22 03:45 Calcium 9.2 mg/dl (8.5-10.1) 02/06/22 03:45 Magnesium 1.6 mg/dl (1.7-2.4) L 02/06/22 03:45 Total Bilirubin 1.7 mg/dl (0.2-1.0) H 02/06/22 03:45 AST 21 U/L (13-39) 02/06/22 03:45 ALT 28 U/L (7-52) 02/06/22 03:45 Alkaline Phosphatase 91 U/L (34-104) 02/06/22 03:45 Troponin I High Sens 16.9 pg/ml (0-20) 02/06/22 03:45 B-Natriuretic Peptide 130 pg/ml (0-100) H 02/06/22 04:22 Total Protein 7.4 gm/dl (6.0-8.3) 02/06/22 03:45 Albumin 4.1 gm/dl (3.4-5.0) 02/06/22 03:45 Globulin 3.3 gm/dl (2.5-4.0) 02/06/22 03:45 Albumin/Globulin Ratio 1.2 (0.9-2) 02/06/22 03:45 SARS-CoV-2, RNA, NAAT NEGATIVE (NEGATIVE) 02/06/22 05:00 PG Care Time/CCT Total # of Minutes Spent Total Time Spent with Patient: Total time spent is greater than 50% in coordination of care (as documented) at patient's floor/unit and/or counseling patient: Coding Level of Care Code 62892 Initial Inpt Care Lvl 3 Diagnoses Hypertensive urgency I16.0 Acute dyspnea R06.00 Hyperlipidemia E78.2 Hyperlipidemia type: mixed hyperlipidemia Coronary atherosclerosis of [place] coronary vessel I25.10 [place] vs. transplanted heart: [place] heart Associated angina: without angina Chronic renal impairment, stage 2 (mild) N18.2 Hypothyroidism E03.9 Obstructive sleep apnea G47.33 Diabetes mellitus type 2, uncontrolled, with complications E11.8; E11.65 (1) Hyperlipidemia Hyperlipidemia type: mixed hyperlipidemia Qualified Code(s): E78.2 - Mixed hyperlipidemia (2) Coronary atherosclerosis of [place] coronary vessel [place] vs. transplanted heart: [place] heart Associated angina: without angina Qualified Code(s): I25.10 - Atherosclerotic heart disease of [place] coronary artery without angina pectoris
--- NOTE | 2022-02-06 07:07 | CT Scan Report ---
CT ANGIOGRAM OF THE CHEST CLINICAL HISTORY: Dyspnea. Headache and dizziness. COMPARISON STUDY: Chest x-ray dated 12/22/2019. TECHNIQUE: Following the IV administration of 119 cc of Optiray 300, CT angiogram of the chest was pe rformed from the upper abdomen to the thoracic inlet utilizing the pulmonary embolus protocol. Images are reviewed in the axial, sagittal, and coronal planes. 3-D MIPS images are created and assessed. I V contrast was administered without complication. A dose lowering technique was utilized adhering to the principles of ALARA. The examination is degraded by motion artifact, as well as by streak artifa ct from the arms which could not be elevated above the chest. FINDINGS: Thyroid: Imaged portions of the thyroid gland are normal in size and attenuation. Thoracic aorta: The thoracic aorta is normal in caliber and demonstrates standard 3-vessel arch anato my. No dissection is seen. Pulmonary vasculature: The pulmonary trunk is normal in caliber. There are no filling defects identif ied in main, lobar, or proximal segmental pulmonary branches to suggest pulmonary embolus. Evaluation of the segmental and subsegmental branches is degraded by motion artifact and suboptimal contrast op acification. Heart: The heart is mildly enlarged and without pericardial effusion. The coronary arteries are dense ly calcified. Lungs and pleural spaces: Evaluation of the lung parenchyma is degraded by motion artifact. No airspa ce consolidation or pleural effusion is identified. Intralobular septal thickening is seen throughout both lungs. Mediastinum: Mildly enlarged mediastinal lymph nodes measure up to 14 mm in short axis. Several of th valencia contain calcifications. Kasia: Clear. Axillae: There is no axillary lymphadenopathy. Upper abdomen: There is a small hiatal hernia. Partially visualized upper abdominal viscera is otherw ise grossly unremarkable. Skeletal structures: No lytic or blastic bony lesions are seen. Degenerative change is noted througho ut the thoracic spine. Chronic appearing anterior rib fractures are seen bilaterally. IMPRESSION: 1 There is no evidence of central pulmonary embolus in the main, lobar, or proximal segmental pulmona ry arteries. The segmental and subsegmental branches are not well assessed. 2. Cardiomegaly with evidence of congestive failure. 3. No airspace consolidation or pleural effusion is identified. 4. Mildly enlarged mediastinal lymph nodes are nonspecific and may be chronic. ACT 112: Negative or not required by law. Electronically signed by: Parveen Mckeon M.D. 02/06/2022 7:06 AM
--- NOTE | 2022-02-06 07:51 | CT Scan Report ---
CT angio neck with con, CT head/brain wo con, CT angio head w con CLINICAL HISTORY: severe GALLARDO TECHNIQUE: Contiguous axial CT images of the head were acquired from the base of the skull to the ilan missael without intravenous contrast administration. CT angiography of the head and neck was performed f ollowing intravenous administration of iodinated contrast. Coronal and sagittal MIPS were obtained fr om the axial data set and were submitted for review. Automated dose lowering techniques and/or adjus tment according to patient size were utilized for this examination. All measurements were calculated based on NASCET criteria. CT DOSE: 2118.49 mGy.cm Comparison: Comparison is made to CTA Head and Neck 10/25/2021 and CTA neck 12/22/2019 FINDINGS: CT head: Areas of decreased attenuation are present in the periventricular and subcortical [place] er bilaterally consistent with small vessel ischemic disease. Generalized cerebral atrophy with comme nsurate enlargement of the ventricles, sulci, and cisterns is also present. There is no acute intracr anial hemorrhage or evidence of acute territorial infarction. No shift of the midline structures, mas s effect, or extra-axial abnormalities are shown. Atherosclerotic calcifications are present in the intracranial segments of the internal carotid arteries. There is opacification of a few ethmoid sinus es. Lungs and soft tissues are unremarkable. CTA Neck: A 3 vessel aortic arch is shown. There is no significant atherosclerotic plaque in the aor tic arch or the origins of the innominate, left common carotid, and left subclavian arteries. Retrop haryngeal course of the internal carotid arteries noted bilaterally. There is mild calcified atherosc lerotic plaque at the bifurcation of the bilateral common carotid arteries without hemodynamically si gnificant flow stenosis. There is no dissection present. The left vertebral artery is dominant. CTA Head: The anterior and posterior cerebral circulations are patent. No hemodynamically significan t stenosis, aneurysm, dissection, or arteriovenous malformation is shown. Atherosclerotic disease is noted. The right vertebral artery becomes diminutive after the origin of PICA. origin of the po sterior cerebral artery is noted bilaterally. IMPRESSION: 1. No acute intracranial hemorrhage, evidence of acute territorial infarction, or other acute intrac ranial disease process. 2. No occlusion, hemodynamically significant stenosis, aneurysm, dissection, or arteriovenous malfor mation in the major intracranial arteries. 3. No occlusion, hemodynamically significant stenosis, or dissection in the major cervical arteries. Atherosclerotic disease is noted without hemodynamically significant stenosis. Assessment of stenosis of the internal carotid arteries is based on NASCET criteria. ACT 112: Negative or not required by law. Electronically signed by: Willard Callahan M.D. 02/06/2022 7:50 AM
--- NOTE | 2022-02-06 09:35 | Electrocardiogram Report ---
Test Reason : Blood Pressure : / mmHG Vent. Rate : 112 BPM Atrial Rate : 112 BPM P-R Int : 160 ms QRS Dur : 088 ms QT Int : 328 ms P-R-T Axes : 029 -03 058 degrees QTc Int : 447 ms Sinus tachycardia Otherwise normal ECG When compared with ECG of 25-OCT-2021 17:00, No significant change was found Confirmed by Harpreet Serrano ([id number]) on 02/06/2022 9:34:50 AM Referred By: REFERRED SELF Confirmed By:Harpreet Serrano
[2022-02-06] MEDS ORDERED: GLUCOSE 10 TAB/TUBE PO PRN (10:40)
[2022-02-06] MEDS ORDERED: GLUCAGON FOR INJ 1 MG VIAL SQ PRN (10:40)
[2022-02-06] MEDS ORDERED: CARBOHYDRATES FOR HYPOGLYCEMIA PO PRN (10:40)
[2022-02-06] MEDS ORDERED: GLUCOSE 40% GEL 15 GM TUBE PO PRN (10:40)
[2022-02-06] MEDS ORDERED: DEXTROSE 50% 50 ML SYRINGE IV PRN (10:40)
[2022-02-06] MEDS ORDERED: LANTUS PER UNIT CHARGE SQ SCH ×2 (11:00→21:00)
[2022-02-06] MEDS ORDERED: FUROSEMIDE 40 MG/4 ML VIAL IV ONE (12:30)
[2022-02-06] MEDS: INSULIN ASPART PER UNIT SC SCH ×4 (12:47→20:50)
[2022-02-06] MEDS: lisinopril 5 MG TAB PO SCH (13:10)
[2022-02-06] MEDS: METOPROLOL SUCC 50MG EXT REL TAB PO SCH (13:10)
[2022-02-06] MEDS: ASPIRIN 81 MG ECTAB PO SCH (13:10)
[2022-02-06] MEDS: PARoxetine HCL 20 MG TAB PO SCH (13:11)
[2022-02-06] MEDS: allopurinoL 300 MG TAB PO SCH (13:11)
[2022-02-06] MEDS: LEVOTHYROXINE SODIUM 100 MCG TABLET PO SCH (13:11)
--- NOTE | 2022-02-06 15:21 | History & Physical Bridge Note ---
Date of Service February 06, 2022 History & Physical Bridge Note I have examined the patient, reviewed the History & Physical and in the interval since the performance of the History & Physical I have noted the following changes of clinical significance: Patient hospitalized with c/o hypertensive urgency, headache, and dyspnea. He was seen this AM, reports feeling overall better. Was diaphoretic with an elevated temp earlier this morning but feels better during my visit. He has a h/o babesiosis that was treated in November. He admits to having frequent tick bites and actually believes he had one within the past week as he noted a spot on his abdomen. He has no cough, cp, gu symptoms, or abd pain. Does have a prior h/o [place] and coronary artery stenting. Not sure when he last had an echo, but believes it has been several years. On exam, VSS and BP improved to 135 systolic. CTA chest noted PVC for which I have ordered a dose of IV Lasix 40mg x1. Echo ordered. I have added tick borne illness testing and will consider adding on Doxycycline 100mg BID to start this evening. Repeat labs ordered for tomorrow morning. No additional changes made to plan. D/w Dr. Oro.
[2022-02-06] MEDS ORDERED: hydrALAZINE HCL 20 MG/ML VIAL IV PRN (15:22)
[2022-02-06] MEDS ORDERED: PHARMACY GLYCEMIC MGMT CONSULT PRN (17:15)
--- NOTE | 2022-02-06 17:24 | XCELERA ---
[id number]
[2022-02-06] MEDS ORDERED: ATORVASTATIN 40 MG TAB PO SCH (21:00)
[2022-02-06] MEDS: DOXYCYCLINE HYCLATE 100 MG CAP PO SCH (21:37)
[2022-02-07] MEDS: INSULIN ASPART PER UNIT SC SCH ×3 (01:03→08:39)
[2022-02-07 06:21] LABS: Basophils # (auto) 0.03 K/uL (0-0.2); Basophils % (auto) 0.2 %; Eosinophils # (auto) 0.02 K/uL (0-0.50); Eosinophils % (auto) 0.1 %; Hematocrit (blood only) 43.2 % (40.1-51.0); Hemoglobin 14.6 g/dl (14.0-18.0); Immature Granulocytes # (auto) 0.16 K/uL (0.00-0.02); Lymphocytes # (auto) 1.82 K/uL (1.2-3.4); Mean Corpuscular Hemoglobin 30.2 pg (25.0-34.0); Mean Corpuscular Hgb Conc 33.8 g/dL (32.0-36.0); Mean Corpuscular Volume 89.3 fL (80.0-100.0); Mean Platelet Volume 9.8 fL (9.4-12.4); Monocytes # (auto) 1.39 K/uL (0.24-0.82); Monocytes % (auto) 8.4 %; Neutrophils # (auto) 13.06 K/uL (1.4-6.5); Neutrophils % (auto) 79.3 %; Platelet Count 276 K/uL (130-400); RDW Coefficient of Variation 13.6 % (11.5-14.5); RDW Standard Deviation 44.2 fL (36.4-46.3); Red Blood Count 4.84 M/uL (4.63-6.08); White Blood Count 16.48 K/ul (4.8-10.8)
[2022-02-07 06:52] LABS: Albumin Level 3.9 gm/dl (3.4-5.0); BUN Creatinine Ratio 24.3 (10-20); Bilirubin Direct 0.1 mg/dl (0-0.2); Bilirubin,Total 1.5 mg/dl (0.2-1.0); Calcium 9.3 mg/dl (8.5-10.1); Est GFR (African American) 56.3 ml/min; Est GFR (Non-African American) 48.6 ml/min; Magnesium 2.2 mg/dl (1.7-2.4); Potassium 4.6 mmol/L (3.5-5.1); Total Protein 6.9 gm/dl (6.0-8.3)
[2022-02-07] MEDS: ASPIRIN 81 MG ECTAB PO SCH (08:34)
[2022-02-07] MEDS: DOXYCYCLINE HYCLATE 100 MG CAP PO SCH (08:34)
[2022-02-07] MEDS: allopurinoL 300 MG TAB PO SCH (08:35)
[2022-02-07] MEDS: METOPROLOL SUCC 50MG EXT REL TAB PO SCH (08:35)
[2022-02-07] MEDS: lisinopril 5 MG TAB PO SCH (08:35)
[2022-02-07] MEDS: LEVOTHYROXINE SODIUM 100 MCG TABLET PO SCH (08:36)
[2022-02-07] MEDS: PARoxetine HCL 20 MG TAB PO SCH (08:36)
[2022-02-07] MEDS ORDERED: LANTUS PER UNIT CHARGE SQ SCH ×2 (09:00)
--- NOTE | 2022-02-07 18:44 | Discharge Summary ---
Date of Service February 07, 2022 Admission HPI Per Admitting Provider Ever Morales is a 67yo male with history of DM, Gout, SOCORRO, CAD, HTN, HLP presenting with SOB. History obtained predominantly from as patient is somnolent after receiving Ativan. Patient was in his usual state of health yesterday. This AM he woke up around 01:30 and said he had a bad headache. He went downstairs and took Motrin x 2. Of note, he typically takes Tylenol due to his medical comorbidities of HTN and CKD, however, took Ibuprofen tonight by mistake. He woke up several hours later complaining of shortness of breath. Patient hypertensive upon arrival with BP of 213/109, HR of 114. Saturations have been 88-92% on room air. Patient arousable during exam. Reports headache has improved. Denies chest pain, palpitations, cough. No report of fever, chills, abdominal pain, nausea, vomiting, diarrhea or constipation. He had some mild wheezing noted by his yesterday, otherwise, no additional complaints. ER Course: Reglan 10mg IV Albuterol 3mL Ativan 1mg IV Magnesium 2gm IV Solumedrol 125mg Metoprolol 5mg IV Principal Diagnosis Likely tick-borne illness vs. general viral illness Discharge Exam gen aaox3 pleasant nad heent nc at mmm breathing unlabored no accessory msucles good effort skin no rashes no pallor or icterus cn 2-12 grossly intact gross motor/sensory intact good recent and remote recall normal mood and affect Discharge Data Allergies Allergy/AdvReac Type Severity Reaction Status Date / Time No Known Allergies Allergy Verified 02/06/22 07:23 Ordered Studies 02/06/22 03:53 CT head/brain wo con Stat 02/06/22 03:57 CT angio chest PE protocol Stat 02/06/22 04:00 CTA head w con [CT angio head w con] Stat CTA neck with con [CT angio neck with con] Stat Hospital Course (1) Tick-borne disease: Possible tick-borne illness as patient had leukocytosis, borderline fever, and recent tick bite. Lyme IgM was equivocal, but smears negative. PCR pending on all other tests. - Substantial improvement with start of doxycycline 100 mg PO BID. - Discharged with 10-day prescription and plan to follow labs. If babesiosis or other test positive that requires change, will contact patient. Did draw blood cultures given fairly vague sepsis-like picture. Will follow for 5 days. -> Patient feels well and requests discharge. (2) Hypertensive urgency: ?Secondary to NSAID use. Blood pressure elevated upon arrival, improved with use of IV Metoprolol. Respiratory status improved as well. - Resumed home blood pressure medications - Lisinopril - Presumed a stress response (3) Acute dyspnea: Improving with BP control. Possibly secondary to hypertensive urgency vs. sepsis syndrome from infection. - Management with BP control - Received Lasix x 1 dose, but no clinical sign of CHF, so do not think that is the case. (4) Hyperlipidemia: Chronic. -Continue Atorvastatin (5) Coronary atherosclerosis of [place] coronary vessel: Chronic. No chest pain -Continue ASA, Atorvastatin, Lisinopril, Metoprolol (6) Chronic renal impairment, stage 2 (mild): Mild worsening of renal function - poorly controlled BP may be contributing. -Montior UOP -Monitor electrolytes -Avoid nephrotoxins -Renal dosing where needed (7) Hypothyroidism: Chronic -Continue Synthroid 100mcg po daily (8) Obstructive sleep apnea: CPAP qHS and PRN (9) Diabetes mellitus type 2, uncontrolled, with complications: Chronic -Lantus 10u BID -ISS (10) Adult body mass index 40 and over: Body mass index 44.0 kg/m*m, clinically obese Total Time Total Time Spent Total Time Spent (In Minutes): 35 Discharge Plan Discharge Items Patient Disposition: Home - Self-Care Reason For Visit: SHORTNESS OF BREATH Discharge Diagnosis: Shortness of breath, likely tick-borne illness Condition on Discharge: Good Activity: Resume your previous activity Non-emergency contact: Primary Care Provider Call non-emergency contact if: your pain is not controlled Follow-up/Referrals: Russ Newsome MD [Primary Care Provider] - Diet: Regular Addtl Attending Provider Instructions: Mr. Morales, You were admitted to the hospital with shortness of breath, a fast heart rate, high blood pressure, and fever. This can all be signs of an infection. The biggest concern for us is a tick-borne illness as you have a lot of exposures and had a recent tick bite. As we discussed, there are many tick-borne illnesses, some bacterial (for example, Lyme, anaplasmosis, babesiosis) and viral (this new [place] virus for instance). We are treating you with doxycycline for the most common bacterial tick-borne bacteria. If something comes back different, we can call you and make adjustments. As we discussed, your echo does show some mild/moderate narrowing of your aortic valve. There is nothing that you need to do about this right now, but it is something that you should get monitored periodically. Your PCP can do this, or if he doesn't feel comfortable doing it, can refer you to a journeyman powerhouse operator for periodic visits. Pending Studies at Discharge: Yes Studies:: Several tick-borne studies Stand-Alone Forms: [facility] [employer], Smoking Cessation Medications and DC Order Prescriptions: New doxycycline hyclate 100 mg Capsule 100 mg PO BID Qty: 20 0RF Continued atorvastatin 80 mg tablet 80 mg PO HS Qty: 90 3RF dulaglutide 1.5 mg/0.5 mL pen injector 1.5 mg SQ .weekly Qty: 6 1RF Rx Instructions: Friday (DME) Accu-Chek Jennifer Plus test strp Strip See Rx Instructions .ROUTE .MEDSUPPLY Rx Instructions: Test blood sugars 3 times a day PRN nitroglycerin 0.4 mg tablet, sublingual 0.4 mg SL UD PRN (Reason: chest pain) Qty: 14 6RF aspirin [Kaela Low Dose Aspirin] 81 mg tablet,delayed release (DR/EC) 81 mg PO HS omega-3 fatty acids-fish oil [Fish Oil] 360-1,200 mg capsule 1 cap PO DAILY metoprolol succinate 50 mg tablet extended release 24 hr 25 mg PO BID17 levothyroxine 100 mcg tablet 100 mcg PO DAILYBB paroxetine HCl 20 mg tablet 20 mg PO HS metformin 1,000 mg tablet 1,000 mg PO BID17 allopurinol 300 mg tablet 300 mg PO QDD lisinopril 5 mg tablet 5 mg PO QAM magnesium oxide 400 mg magnesium capsule 400 mg PO QAM Discharge Orders: Discharge Order (Routine); Ordered 02/07/22 Ordered By: Meng Oro Admission Data Admit Date/Time: 02/06/22 06:40 Attending Provider: Meng Oro Admit Provider: Mimi Bello Primary Care Provider: Russ Newsome Other Interventions: Discharge Summary Assessment (RN) Last Done: 02/07/22 10:29 Coding Level of Care Code D/C DAY MANAGEMENT >30 MINS Diagnoses Tick-borne disease B88.2 Hypertensive urgency I16.0 Acute dyspnea R06.00 Hyperlipidemia E78.2 Hyperlipidemia type: mixed hyperlipidemia Coronary atherosclerosis of [place] coronary vessel I25.10 [place] vs. transplanted heart: [place] heart Associated angina: without angina Chronic renal impairment, stage 2 (mild) N18.2 Hypothyroidism E03.9 Obstructive sleep apnea G47.33 Diabetes mellitus type 2, uncontrolled, with complications E11.8; E11.65 Adult body mass index 40 and over
[2022-02-08 16:57] LABS: 18KDIGG Band NON-REACTIVE; 23KDIGG Band NON-REACTIVE; 23KDIGM Band NON-REACTIVE; 28KDIGG Band NON-REACTIVE; 30KDIGG Band NON-REACTIVE; 39KDIGG Band REACTIVE; 39KDIGM Band NON-REACTIVE; 41KDIGG Band NON-REACTIVE; 41KDIGM Band NON-REACTIVE; 45KDIGG Band NON-REACTIVE; 58KDIGG Band NON-REACTIVE; 66KDIGG Band NON-REACTIVE; 93KDIGG Band NON-REACTIVE; Lyme Antibodies, WB IgG NEGATIVE (NEGATIVE); Lyme Antibodies, WB IgM NEGATIVE (NEGATIVE)
[2022-02-08 21:56] LABS: Babesia microti DNA Not Detected (Not Detected)
== END 2022-02-07 11:15 | disposition home or self-care (01) | DRG 866 ==
LOC: ED 03:26 → INTOOBSV 06:40 → SUATTDRO 06:40 → EDINP 06:40 → 4W 10:40

== ENCOUNTER 2022-03-20 14:35 | Observation (INO) ==
--- NOTE | 2022-03-20 16:00 | Emergency Department Note ---
Impression & Plan AMS (altered mental status), Hypertensive urgency, Acute hyponatremia ED Provider Note NAME: ASHOK LARA AGE: 67 SEX: M : 1955 ARRIVES VIA: Walk-In INFORMANT: Patient, ED PROVIDER(S): Ryan Morris DO CHIEF COMPLAINT: Confusion HPI: Patient is a 67-year-old male who presents ER with a past medical history of hypertensive urgency, vascular disease, hyperlipidemia, morbid obesity, CAD, depression, diabetes who presents the ER for confusion which started around 2:00. He has had this 3-4 times before in the past and believes it was secondary to both Lyme and babesiosis. She notes he was recently treated within the past month for Lyme disease. He notes he has a very faint headache today. Denies any change in vision chest pain shortness of breath nausea vomiting or diarrhea. No weakness or numbness in the arms or legs. No other exacerbating or remitting factors. She notes that intermittently he has trouble with getting out what he wants to say and is very slow with talking. This has been improving slightly. ROS: See above HPI for pertinent positives & negatives. A total of 10 systems reviewed and were otherwise negative. PAST MEDICAL HISTORY:See Below PAST SURGICAL HISTORY:See Below FAMILY HISTORY:See Below SOCIAL HISTORY:See Below HOME MEDICATIONS:See Below ALLERGIES:See Below VITALS:See Below PHYSICAL EXAMINATION: GENERAL: Sitting up in bed, alert, well appearing, well nourished, no distress, non-toxic EYE EXAM: normal conjunctiva. PERRL and EOM's intact. OROPHARYNX: no exudate, no erythema, lips, buccal mucosa, and tongue normal and mucous membranes are moist NECK: supple, no nuchal rigidity, no adenopathy, non-tender LUNGS: Clear to auscultation. Normal chest wall mechanics HEART: no murmurs, S1 normal and S2 normal ABDOMEN: abdomen soft, non-tender, normo-active bowel sounds, no masses, no rebound or guarding. UPPER EXTREMITIES: upper extremities are grossly normal. LOWER EXTREMITIES: No pitting edema. NEURO EXAM: Normal sensorium-oriented to person place and year but intermittently has trouble getting his words out, cranial nerves II-XII intact, normal speech, no weakness of arms, no weakness of legs. No drift. Finger to nose intact. Gross sensation intact. MEDICAL DECISION MAKING: Patient is a 67-year-old male who presents ER for confusion which started rafael ewhere after 2 PM. IV was established blood work was obtained. I was called to bedside and on exam he has just some mild word finding but otherwise completely neurologically intact. Labs showed no significant leukocytosis or anemia. INR unremarkable. BMP with slightly elevated glucose. T bili at 1.4. LFTs troponin were unremarkable. UA was clean. COVID was negative. Stroke alert was called he was taken emergently to CT. CT of the head and neck with IV contrast showed no significant changes. On repeat evaluation at bedside his symptoms have resolved. He was evaluated by telestroke neurology. I discussed with them at bedside. Recommends allowing permissive hypertension and admission and MRI. Patient was given oral aspirin. He was updated bedside. Discussed with Dr. Terell Sharp for further evaluation. No tPA given due to the return to baseline and I question if this is secondary to hypertensive emergency. Triage Nursing notes reviewed. Limited review of prior medical records performed Vital Signs: reviewed and remarkable for HTN Differential diagnosis: Differential diagnoses includes but is not limited to toxic, metabolic, infectious, traumatic, cardiac, neurologic, hematologic, psychiatric and inflammatory etiologies. ER treatment provided: See below Diagnostics interpreted by me: ECG: Sinus rhythm rate 86 Left axis No PVCs QTC 447 Cardiac Monitoring: An order was placed for continuous cardiac monitoring. The monitor shows a rate of 90 with sinus rhythm. Laboratory studies: As stated above and show below. Imaging studies: CT angios of the head and neck were unchanged from previous Consultation(s): Discussed with Francia telestroke neurology as described above Discussed with Terell Sharp for further evaluation Procedures: none Critical Care: None Past Med/Surg History Medical History (Updated 03/20/22 @ 19:09 by Ryan Morris DO) Colon polyps Diabetes mellitus, type 2 Diabetic nephropathy associated with type 2 diabetes mellitus Gout History of colon polyps History of positive PPD History of rheumatic fever History of rheumatic fever as a child Myocardial Infarction 2007 Skin cancer of nose Tubular adenoma of colon Vitamin D deficiency Surgical History History of cardiac cath 2008 @[facility] History of colonoscopy History of heart artery stent 2007 @ [facility] x1 stent--no manager public History of open reduction and internal fixation (ORIF) procedure R ankle History of tonsillectomy and adenoidectomy History of tooth extraction wisdom teeth Family History Mother , age 79 of complications of diabetes Hypothyroidism Pulmonary tuberculosis Diabetes Father , age 73 of heart disease Coronary heart disease Diabetes Myocardial infarction Stroke Sister Renal failure Heart disease Diabetes Brother Hypothyroidism Grandfather (Paternal) Lung cancer Uncle Myocardial infarction Denies family history of Ovarian cancer Prostate cancer Breast cancer Colorectal cancer Social History Smoking Status: Never smoker Tobacco Type: Smokeless Tobacco (Dip or Chew) Second Hand Exposure: No; Hx Alcohol Use: No Hx Substance Use: No Preferred Language: Japanese Communication Ability: Effective Visual Impairment: Limited Hearing Ability: Normal Surgical Garment Fitter Required: No Beliefs That Will Affect Care: None marital status: Current Living Situation: Spouse current occupational status: retired 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) How many Children do You have: 3 Feels Safe at Home: Yes Childhood Exposure to Second-Hand Smoke: No caffeine: Yes Dental Care, Regularly: No Physical Activity Frequency: Does not Exercise Seatbelt Use: always Sunscreen Use: No Assistive Devices: CPAP Allergies Allergies Allergy/AdvReac Type Severity Reaction Status Date / Time No Known Allergies Allergy Verified 03/20/22 16:57 Home Meds Home Medications Medication Instructions Recorded Confirmed aspirin 81 mg tablet,delayed 81 mg PO HS 02/04/19 03/20/22 release (Kaela Low Dose Aspirin) omega-3 fatty acids-fish oil 360 1 cap PO DAILY 02/04/19 03/20/22 mg-1,200 mg capsule (Fish Oil) blood sugar diagnostic (Accu-Chek 01/15/21 02/11/22 Jennifer Plus test strips) levothyroxine 100 mcg tablet 100 mcg PO DAILYBB 02/06/22 03/20/22 metformin 1,000 mg tablet 1,000 mg PO BID17 02/06/22 03/20/22 metoprolol succinate 50 mg 25 mg PO BID17 02/06/22 03/20/22 tablet,extended release 24 hr paroxetine HCl 20 mg tablet 20 mg PO HS 02/06/22 03/20/22 magnesium 250 mg tablet 500 mg PO DAILY 03/20/22 03/20/22 Previous Rx's Medication Instructions Recorded nitroglycerin 0.4 mg sublingual 0.4 mg sublingual UD PRN chest 11/14/21 tablet pain #14 tabs dulaglutide 1.5 mg/0.5 mL 1.5 mg (0.5 mL) subcut .weekly #6 12/24/21 subcutaneous pen injector mL allopurinol 300 mg tablet 300 mg PO DAILY #90 tabs 02/28/22 atorvastatin 80 mg tablet 80 mg PO HS #90 tabs 02/28/22 lisinopril 5 mg tablet 5 mg PO QAM #90 tabs 02/28/22 Results & Data (ED) Vital Signs Vital Signs - 24 hr 03/20/22 15:08 03/20/22 15:30 03/20/22 18:00 Temperature 36.5 C Temperature Source Temporal Artery Scan Pulse Rate 85 Pulse Rate [Apical] 83 91 H Pulse Rhythm [Apical] Regular Regular Pulse Strength [Apical] Normal Normal Respiratory Rate 16 22 Respiratory Effort / Characteristics Non-Labored Non-Labored Respiratory Depth Normal Normal Respiratory Pattern Regular Regular Blood Pressure 203/109 H Blood Pressure [Right Arm] 203/123 H 175/104 H Blood Pressure Mean 140 Blood Pressure Mean [Right Arm] 149 127 Blood Pressure Position [Right Arm] Lying Lying Pulse Oximetry 97 97 97 Oxygen Delivery Method Room Air Room Air Room Air Sepsis Recent Fever Within 48 Hours No Sepsis New/Unexplained Change in Mental Status N/A Sepsis Action Taken by Nursing No Action Required Laboratory Data Result diagrams: 03/20/22 15:39 03/20/22 15:39 Lab Results 03/20/22 03/20/22 03/20/22 Range/Units 15:39 15:39 15:39 WBC 7.92 (4.8-10.8) K/ul RBC 4.95 (4.63-6.08) M/uL Hgb 15.1 (14.0-18.0) g/dl Hct 44.2 (40.1-51.0) % MCV 89.3 (80.0-100.0) fL MCH 30.5 (25.0-34.0) pg MCHC 34.2 (32.0-36.0) g/dL RDW Std Deviation 43.7 (36.4-46.3) fL RDW Coeff of Martín 13.3 (11.5-14.5) % Plt Count 300 (130-400) K/uL MPV 9.6 (9.4-12.4) fL Immature Gran % (Auto) 0.5 % Neut % (Auto) 66.2 % Lymph % (Auto) 21.2 % [place] % (Auto) 8.7 % Eos % (Auto) 2.8 % Baso % (Auto) 0.6 % Neut # (Auto) 5.24 (1.4-6.5) K/uL Lymph # (Auto) 1.68 (1.2-3.4) K/uL [place] # (Auto) 0.69 (0.24-0.82) K/uL Eos # (Auto) 0.22 (0-0.50) K/uL Baso # (Auto) 0.05 (0-0.2) K/uL Immature Gran # (Auto) 0.04 H (0.00-0.02) K/uL PT 10.5 (9.0-12.0) Seconds INR 1.0 (0.9-1.1) APTT 25.6 (21.0-31.0) Seconds PTT Ratio 0.9 Sodium 134 L (136-145) mmol/L Potassium 4.4 (3.5-5.1) mmol/L Chloride 102 (98-107) mmol/L Carbon Dioxide 25 (21-32) mmol/L Anion Gap 7 (3-11) BUN 14 (6-23) mg/dl Creatinine 1.20 (0.6-1.4) mg/dl Est Cr Clr Drug Dosing 85.0 ml/min Est GFR ( Amer) 72.6 ml/min Est GFR (Non-Af Amer) 62.6 ml/min BUN/Creatinine Ratio 11.7 (10-20) Glucose 152 H (70-99(Fasting)) mg/dl POC Glucose (70-99) mg/dl Calcium 9.3 (8.5-10.1) mg/dl Phosphorus (2.5-4.9) mg/dl Magnesium 1.7 (1.7-2.4) mg/dl Total Bilirubin 1.4 H (0.2-1.0) mg/dl AST 20 (13-39) U/L ALT 28 (7-52) U/L Alkaline Phosphatase 84 (34-104) U/L Troponin I High Sens 10.7 D (0-20) pg/ml Total Protein 6.9 (6.0-8.3) gm/dl Albumin 4.3 (3.4-5.0) gm/dl Globulin 2.6 (2.5-4.0) gm/dl Albumin/Globulin Ratio 1.7 (0.9-2) Urine Color Urine Appearance (Clear) Urine pH (4.5-7.5) Ur Specific [place] (1.000-1.030) Urine Protein (Negative) Urine Glucose (UA) (Negative) Urine Ketones (Negative) Urine Blood (Negative) Urine Nitrite (Negative) Urine Bilirubin (Negative) Urine Urobilinogen (Negative) Ur Leukocyte Esterase (Negative) SARS-CoV-2, RNA, NAAT (NEGATIVE) 03/20/22 03/20/22 03/20/22 Range/Units 15:39 16:04 16:10 WBC (4.8-10.8) K/ul RBC (4.63-6.08) M/uL Hgb (14.0-18.0) g/dl Hct (40.1-51.0) % MCV (80.0-100.0) fL MCH (25.0-34.0) pg MCHC (32.0-36.0) g/dL RDW Std Deviation (36.4-46.3) fL RDW Coeff of Martín (11.5-14.5) % Plt Count (130-400) K/uL MPV (9.4-12.4) fL Immature Gran % (Auto) % Neut % (Auto) % Lymph % (Auto) % [place] % (Auto) % Eos % (Auto) % Baso % (Auto) % Neut # (Auto) (1.4-6.5) K/uL Lymph # (Auto) (1.2-3.4) K/uL [place] # (Auto) (0.24-0.82) K/uL Eos # (Auto) (0-0.50) K/uL Baso # (Auto) (0-0.2) K/uL Immature Gran # (Auto) (0.00-0.02) K/uL PT (9.0-12.0) Seconds INR (0.9-1.1) APTT (21.0-31.0) Seconds PTT Ratio Sodium (136-145) mmol/L Potassium (3.5-5.1) mmol/L Chloride (98-107) mmol/L Carbon Dioxide (21-32) mmol/L Anion Gap (3-11) BUN (6-23) mg/dl Creatinine (0.6-1.4) mg/dl Est Cr Clr Drug Dosing ml/min Est GFR ( Amer) ml/min Est GFR (Non-Af Amer) ml/min BUN/Creatinine Ratio (10-20) Glucose (70-99(Fasting)) mg/dl POC Glucose 163 H (70-99) mg/dl Calcium (8.5-10.1) mg/dl Phosphorus 3.2 (2.5-4.9) mg/dl Magnesium (1.7-2.4) mg/dl Total Bilirubin (0.2-1.0) mg/dl AST (13-39) U/L ALT (7-52) U/L Alkaline Phosphatase (34-104) U/L Troponin I High Sens (0-20) pg/ml Total Protein (6.0-8.3) gm/dl Albumin (3.4-5.0) gm/dl Globulin (2.5-4.0) gm/dl Albumin/Globulin Ratio (0.9-2) Urine Color Urine Appearance (Clear) Urine pH (4.5-7.5) Ur Specific [place] (1.000-1.030) Urine Protein (Negative) Urine Glucose (UA) (Negative) Urine Ketones (Negative) Urine Blood (Negative) Urine Nitrite (Negative) Urine Bilirubin (Negative) Urine Urobilinogen (Negative) Ur Leukocyte Esterase (Negative) SARS-CoV-2, RNA, NAAT NEGATIVE (NEGATIVE) 03/20/22 Range/Units 16:34 WBC (4.8-10.8) K/ul RBC (4.63-6.08) M/uL Hgb (14.0-18.0) g/dl Hct (40.1-51.0) % MCV (80.0-100.0) fL MCH (25.0-34.0) pg MCHC (32.0-36.0) g/dL RDW Std Deviation (36.4-46.3) fL RDW Coeff of Martín (11.5-14.5) % Plt Count (130-400) K/uL MPV (9.4-12.4) fL Immature Gran % (Auto) % Neut % (Auto) % Lymph % (Auto) % [place] % (Auto) % Eos % (Auto) % Baso % (Auto) % Neut # (Auto) (1.4-6.5) K/uL Lymph # (Auto) (1.2-3.4) K/uL [place] # (Auto) (0.24-0.82) K/uL Eos # (Auto) (0-0.50) K/uL Baso # (Auto) (0-0.2) K/uL Immature Gran # (Auto) (0.00-0.02) K/uL PT (9.0-12.0) Seconds INR (0.9-1.1) APTT (21.0-31.0) Seconds PTT Ratio Sodium (136-145) mmol/L Potassium (3.5-5.1) mmol/L Chloride (98-107) mmol/L Carbon Dioxide (21-32) mmol/L Anion Gap (3-11) BUN (6-23) mg/dl Creatinine (0.6-1.4) mg/dl Est Cr Clr Drug Dosing ml/min Est GFR ( Amer) ml/min Est GFR (Non-Af Amer) ml/min BUN/Creatinine Ratio (10-20) Glucose (70-99(Fasting)) mg/dl POC Glucose (70-99) mg/dl Calcium (8.5-10.1) mg/dl Phosphorus (2.5-4.9) mg/dl Magnesium (1.7-2.4) mg/dl Total Bilirubin (0.2-1.0) mg/dl AST (13-39) U/L ALT (7-52) U/L Alkaline Phosphatase (34-104) U/L Troponin I High Sens (0-20) pg/ml Total Protein (6.0-8.3) gm/dl Albumin (3.4-5.0) gm/dl Globulin (2.5-4.0) gm/dl Albumin/Globulin Ratio (0.9-2) Urine Color Yellow Urine Appearance Clear (Clear) Urine pH 7.0 (4.5-7.5) Ur Specific [place] 1.016 (1.000-1.030) Urine Protein Negative (Negative) Urine Glucose (UA) Negative (Negative) Urine Ketones Negative (Negative) Urine Blood Negative (Negative) Urine Nitrite Negative (Negative) Urine Bilirubin Negative (Negative) Urine Urobilinogen Negative (Negative) Ur Leukocyte Esterase Negative (Negative) SARS-CoV-2, RNA, NAAT (NEGATIVE) Administered Medications Discontinued Medications Aspirin (Aspirin Chew 324 Mg) 324 mg PO NOW STA Stop: 03/20/22 16:37 Last Admin: 03/20/22 16:44 Dose: 324 mg Documented By: [facility] Ioversol (Optiray 300 500ml) 110 ml IV ONCE ONE Stop: 03/20/22 16:10 Last Admin: 03/20/22 16:10 Dose: 110 ml Documented By: [facility] Imaging Data Radiologist's Impression: Chest X-Ray 03/20/22 15:53 XR chest 1V portable CLINICAL HISTORY: Stroke Like Symptoms COMPARISON STUDY: Chest CT February 06, 2022. FINDINGS: No pneumothorax or pleural effusion is present. Cardiomegaly is unchanged. Mild interstitial thickening is present. No consolidation is identified. There is no pneumothorax or pleural effusion. IMPRESSION: Cardiomegaly with pulmonary vascular congestion. ACT 112: Negative or not required by law. Electronically signed by: Boaz Saenz M.D. 03/20/2022 5:[address] 03/20/22 15:[address] DOSE: 1422.55 mGy.cm HISTORY: Stroke Like Symptoms TECHNIQUE: Multiaxial CT images of the head were performed without the use of intravenous contrast. Automated exposure control was utilized for this study. A dose lowering technique was utilized adhering to the principles of ALARA. Comparison: Head CT 02/06/2022. Findings: Mild mucosal thickening within the ethmoid air cells, unchanged. The mastoid air cells are clear. The calvarium and skull base are intact. There is no mass, hematoma, midline shift, acute infarct. White matter hypodensity is nonspecific but suggestive of microvascular ischemic change. The ventricles and sulci demonstrate mild age-related involutional changes. Impression: No acute intracranial abnormality. Atrophy and microvascular ischemic changes. ACT 112: Negative or not required by law. Electronically signed by: Jose Amos M.D. 03/20/2022 4:15 PM Head CTA 03/20/22 15:53 HEAD & NECK CTA HISTORY: Stroke Like Symptoms TECHNIQUE: Multiaxial CT images of the head were performed following the intravenous administration of contrast to evaluate the major cerebral vessels. Multiaxial CT images of the neck were also performed following the intravenous administration of contrast to evaluate the major cervical vessels. Maximum intensity projection images were also obtained. A dose lowering technique was utilized adhering to the principles of ALARA. COMPARISON: Head and neck CTA 02/06/2022. FINDINGS: There is no mass, hematoma, midline shift, or acute infarct. Visualized intr acranial internal carotid arteries, distal vertebral arteries, and basilar artery are widely patent. There is no significant stenosis, occlusion, or aneurysm seen within the bilateral ACAs, MCAs, or right OIL[place] GREASER. Hypoplastic. Right vertebral artery and bilateral P1 segments. Mild to moderate multifocal narrowing within the proximal to mid left [place], unchanged. Mild calcified plaque within the bilateral carotid siphons. The major dural venous sinuses are patent. The aortic arch and proximal great vessels are widely patent. There is no significant stenosis, occlusion, or dissection identified within the bilateral common carotid or vertebral arteries. Partially visualized mildly enlarged mediastinal and nodes remain unchanged and are better appreciated on the 02/06/[address] Moderate calcified plaque within the bilateral carotid siphons. This results in 30% stenosis within the proximal right ICA and 20% stenosis within the proximal left ICA. No high-grade stenosis identified within the carotid arteries. This remains unchanged. IMPRESSION: 1. Mild/moderate multifocal focal stenosis within the proximal and mid left OILER [place] GREASER, unchanged. Otherwise, no significant stenosis, occlusion, or aneurysm within the remaining [place]. 2. No significant stenosis, occlusion, or dissection identified within the bi lateral common carotid or vertebral arteries. 3. Moderate calcified plaque within the bilateral carotid bifurcations resulting in 30% stenosis within the proximal right ICA and 20% stenosis within the proximal left ICA. This remains unchanged. 4. Prominent mediastinal lymph nodes are again noted and are better appreciated on the recent chest CTA. ACT 112: Negative or not required by law. Electronically signed by: Jose Amos M.D. 03/20/2022 4:24 PM Neck CTA 03/20/22 15:53 HEAD & NECK CTA HISTORY: Stroke Like Symptoms TECHNIQUE: Multiaxial CT images of the head were performed following the intravenous administration of contrast to evaluate the major cerebral vessels. Multiaxial CT images of the neck were also performed following the intravenous administration of contrast to evaluate the major cervical vessels. Maximum intensity projection images were also obtained. A dose lowering technique was utilized adhering to the principles of ALARA. COMPARISON: Head and neck CTA 02/06/2022. FINDINGS: There is no mass, hematoma, midline shift, or acute infarct. Visualized i ntracranial internal carotid arteries, distal vertebral arteries, and basilar artery are widely patent. There is no significant stenosis, occlusion, or aneurysm seen within the bilateral ACAs, MCAs, or right OILER [place] GREASER. Hypoplastic. Right vertebral artery and bilateral P1 segments. Mild to moderate multifocal narrowing within the proximal to mid left O[place], unchanged. Mild calcified plaque within the bilateral carotid siphons. The major dural venous sinuses are patent. The aortic arch and proximal great vessels are widely patent. There is no significant stenosis, occlusion, or dissection identified within the bilateral common carotid or vertebral arteries. Partially visualized mildly enlarged mediastinal and nodes remain unchanged and are better appreciated on the [address] Moderate calcified plaque within the bilateral carotid siphons. This results in 30% stenosis within the proximal right ICA and 20% stenosis within the proximal left ICA. No high-grade stenosis identified within the carotid arteries. This remains unchanged. IMPRESSION: 1. Mild/moderate multifocal focal stenosis within the proximal and mid left OILER AND GREASER, unchanged. Otherwise, no significant stenosis, occlusion, or aneurysm within the remaining [place]. 2. No significant stenosis, occlusion, or dissection identified within the bilateral common carotid or vertebral arteries. 3. Moderate calcified plaque within the bilateral carotid bifurcations resulting in 30% stenosis within the proximal right ICA and 20% stenosis within the proximal left ICA. This remains unchanged. 4. Prominent mediastinal lymph nodes are again noted and are better appreciated on the recent chest CTA. ACT 112: Negative or not required by law. Electronically signed by: Jose Amos M.D. 03/20/2022 4:24 PM Discharge Plan Visit Data Chief Complaint: Illness Stated Complaint: FORGETFUL ED Provider: Ryan Morris Discharge Problem: AMS (altered mental status), Hypertensive urgency, Acute hyponatremia Discharge Instructions Interventions: ED Discharge Assessment Last Done: 03/20/22 18:25 Forms Stand Alone Forms: [employer] Prescriptions Prescriptions: No Action dulaglutide 1.5 mg/0.5 mL pen injector 1.5 mg SQ .weekly Qty: 6 1RF Rx Instructions: Friday allopurinol 300 mg tablet 300 mg PO DAILY Qty: 90 3RF atorvastatin 80 mg tablet 80 mg PO HS Qty: 90 3RF lisinopril 5 mg tablet 5 mg PO QAM Qty: 90 3RF (DME) Accu-Chek Jennifer Plus test strp Strip See Rx Instructions .ROUTE .MEDSUPPLY Rx Instructions: Test blood sugars 3 times a day PRN nitroglycerin 0.4 mg tablet, sublingual 0.4 mg SL UD PRN (Reason: chest pain) Qty: 14 6RF aspirin [Kaela Low Dose Aspirin] 81 mg tablet,delayed release (DR/EC) 81 mg PO HS omega-3 fatty acids-fish oil [Fish Oil] 360-1,200 mg capsule 1 cap PO DAILY metoprolol succinate 50 mg tablet extended release 24 hr 25 mg PO BID17 levothyroxine 100 mcg tablet 100 mcg PO DAILYBB paroxetine HCl 20 mg tablet 20 mg PO HS metformin 1,000 mg tablet 1,000 mg PO BID17 magnesium 250 mg Tablet 500 mg PO DAILY Referrals Referrals: Russ Newsome MD [Primary Care Provider] -
[2022-03-20] MEDS ORDERED: OPTIRAY 300 500mL IV ONE (16:09)
--- NOTE | 2022-03-20 16:16 | CT Scan Report ---
HEAD CT NONCONTRAST CT DOSE: 1422.55 mGy.cm HISTORY: Stroke Like Symptoms TECHNIQUE: Multiaxial CT images of the head were performed without the use of intravenous contrast. A utomated exposure control was utilized for this study. A dose lowering technique was utilized adheri ng to the principles of ALARA. Comparison: Head CT 02/06/2022. Findings: Mild mucosal thickening within the ethmoid air cells, unchanged. The mastoid air cells are clear. The calvarium and skull base are intact. There is no mass, hematoma, midline shift, acute infa rct. White matter hypodensity is nonspecific but suggestive of microvascular ischemic change. The kalani tricles and sulci demonstrate mild age-related involutional changes. Impression: No acute intracranial abnormality. Atrophy and microvascular ischemic changes. ACT 112: Negative or not required by law. Electronically signed by: Jose Amos M.D. 03/20/2022 4:15 PM
[2022-03-20 16:22] LABS: Basophils # (auto) 0.05 K/uL (0-0.2); Basophils % (auto) 0.6 %; Eosinophils # (auto) 0.22 K/uL (0-0.50); Eosinophils % (auto) 2.8 %; Hematocrit (blood only) 44.2 % (40.1-51.0); Hemoglobin 15.1 g/dl (14.0-18.0); Immature Granulocytes # (auto) 0.04 K/uL (0.00-0.02); Immature Granulocytes % (auto) 0.5 %; Lymphocytes # (auto) 1.68 K/uL (1.2-3.4); Lymphocytes % (auto) 21.2 %; Mean Corpuscular Hemoglobin 30.5 pg (25.0-34.0); Mean Corpuscular Hgb Conc 34.2 g/dL (32.0-36.0); Mean Corpuscular Volume 89.3 fL (80.0-100.0); Mean Platelet Volume 9.6 fL (9.4-12.4); Monocytes # (auto) 0.69 K/uL (0.24-0.82); Monocytes % (auto) 8.7 %; Neutrophils # (auto) 5.24 K/uL (1.4-6.5); Neutrophils % (auto) 66.2 %; Platelet Count 300 K/uL (130-400); RDW Coefficient of Variation 13.3 % (11.5-14.5); RDW Standard Deviation 43.7 fL (36.4-46.3); Red Blood Count 4.95 M/uL (4.63-6.08); White Blood Count 7.92 K/ul (4.8-10.8)
--- NOTE | 2022-03-20 16:25 | CT Scan Report ---
HEAD & NECK CTA HISTORY: Stroke Like Symptoms TECHNIQUE: Multiaxial CT images of the head were performed following the intravenous administration o f contrast to evaluate the major cerebral vessels. Multiaxial CT images of the neck were also perform ed following the intravenous administration of contrast to evaluate the major cervical vessels. Maxim um intensity projection images were also obtained. A dose lowering technique was utilized adhering to the principles of ALARA. COMPARISON: Head and neck CTA 02/06/2022. FINDINGS: There is no mass, hematoma, midline shift, or acute infarct. Visualized intracranial internal carotid arteries, distal vertebral arteries, and basilar artery are widely patent. There is no significant s tenosis, occlusion, or aneurysm seen within the bilateral ACAs, MCAs, or right ENERGY ANALYST. Hypoplastic. Righ t vertebral artery and bilateral P1 segments. Mild to moderate multifocal narrowing within the proxim al to mid left ENERGY ANALYST, unchanged. Mild calcified plaque within the bilateral carotid siphons. The major dural venous sinuses are patent. The aortic arch and proximal great vessels are widely patent. There is no significant stenosis, occ lusion, or dissection identified within the bilateral common carotid or vertebral arteries. Partially visualized mildly enlarged mediastinal and nodes remain unchanged and are better appreciated on the 02/06/[address] Moderate calcified plaque within the bilateral carotid siphons. This results in 3 0% stenosis within the proximal right ICA and 20% stenosis within the proximal left ICA. No high-grad e stenosis identified within the carotid arteries. This remains unchanged. IMPRESSION: 1. Mild/moderate multifocal focal stenosis within the proximal and mid left ENERGY ANALYST, unchanged. Otherwise , no significant stenosis, occlusion, or aneurysm within the remaining [place]. 2. No significant stenosis, occlusion, or dissection identified within the bilateral common carotid o r vertebral arteries. 3. Moderate calcified plaque within the bilateral carotid bifurcations resulting in 30% stenosis with in the proximal right ICA and 20% stenosis within the proximal left ICA. This remains unchanged. 4. Prominent mediastinal lymph nodes are again noted and are better appreciated on the recent chest C TA. ACT 112: Negative or not required by law. Electronically signed by: Jose Amos M.D. 03/20/2022 4:24 PM
--- NOTE | 2022-03-20 16:25 | CT Scan Report ---
HEAD & NECK CTA HISTORY: Stroke Like Symptoms TECHNIQUE: Multiaxial CT images of the head were performed following the intravenous administration o f contrast to evaluate the major cerebral vessels. Multiaxial CT images of the neck were also perform ed following the intravenous administration of contrast to evaluate the major cervical vessels. Maxim um intensity projection images were also obtained. A dose lowering technique was utilized adhering to the principles of ALARA. COMPARISON: Head and neck CTA 02/06/2022. FINDINGS: There is no mass, hematoma, midline shift, or acute infarct. Visualized intracranial internal carotid arteries, distal vertebral arteries, and basilar artery are widely patent. There is no significant s tenosis, occlusion, or aneurysm seen within the bilateral ACAs, MCAs, or right STRAPPING MACHINE OPERATOR. Hypoplastic. Righ t vertebral artery and bilateral P1 segments. Mild to moderate multifocal narrowing within the proxim al to mid left STRAPPING MACHINE OPERATOR, unchanged. Mild calcified plaque within the bilateral carotid siphons. The major dural venous sinuses are patent. The aortic arch and proximal great vessels are widely patent. There is no significant stenosis, occ lusion, or dissection identified within the bilateral common carotid or vertebral arteries. Partially visualized mildly enlarged mediastinal and nodes remain unchanged and are better appreciated on the 02/06/[address] Moderate calcified plaque within the bilateral carotid siphons. This results in 3 0% stenosis within the proximal right ICA and 20% stenosis within the proximal left ICA. No high-grad e stenosis identified within the carotid arteries. This remains unchanged. IMPRESSION: 1. Mild/moderate multifocal focal stenosis within the proximal and mid left STRAPPING MACHINE OPERATOR, unchanged. Otherwise , no significant stenosis, occlusion, or aneurysm within the remaining [place]. 2. No significant stenosis, occlusion, or dissection identified within the bilateral common carotid o r vertebral arteries. 3. Moderate calcified plaque within the bilateral carotid bifurcations resulting in 30% stenosis with in the proximal right ICA and 20% stenosis within the proximal left ICA. This remains unchanged. 4. Prominent mediastinal lymph nodes are again noted and are better appreciated on the recent chest C TA. ACT 112: Negative or not required by law. Electronically signed by: Jose Amos M.D. 03/20/2022 4:24 PM
[2022-03-20] MEDS ORDERED: ASPIRIN CHEW 324 MG PO STA (16:36)
[2022-03-20 16:55] LABS: Partial Thromboplastin Ratio 0.9; Partial Thromboplastin Time 25.6 Seconds (21.0-31.0); Prothrombin Time 10.5 Seconds (9.0-12.0)
[2022-03-20 17:00] LABS: Troponin I High Sensitivity 10.7 pg/ml (0-20)
[2022-03-20 17:04] LABS: Albumin Globulin Ratio 1.7 (0.9-2); Albumin Level 4.3 gm/dl (3.4-5.0); BUN Creatinine Ratio 11.7 (10-20); Bilirubin,Total 1.4 mg/dl (0.2-1.0); Calcium 9.3 mg/dl (8.5-10.1); Est GFR (African American) 72.6 ml/min; Est GFR (Non-African American) 62.6 ml/min; Globulin 2.6 gm/dl (2.5-4.0); Magnesium 1.7 mg/dl (1.7-2.4); Potassium 4.4 mmol/L (3.5-5.1); Total Protein 6.9 gm/dl (6.0-8.3)
--- NOTE | 2022-03-20 17:07 | XRay Report ---
XR chest 1V portable CLINICAL HISTORY: Stroke Like Symptoms COMPARISON STUDY: Chest CT February 06, 2022. FINDINGS: No pneumothorax or pleural effusion is present. Cardiomegaly is unchanged. Mild interstitia l thickening is present. No consolidation is identified. There is no pneumothorax or pleural effusion . IMPRESSION: Cardiomegaly with pulmonary vascular congestion. ACT 112: Negative or not required by law. Electronically signed by: Boaz Saenz M.D. 03/20/2022 5:06 PM
--- NOTE | 2022-03-20 17:26 | History & Physical Report ---
Date of Service March 20, 2022 Assessment & Plan (1) Stroke-like symptoms: Plan: Patient was a stroke alert. Stroke neurologist recommended full stroke work-up however he just underwent this in January. There are no acute changes in his CT head or CT angios of the head and neck. He has multiple episodes that are similar. Symptoms are consistent with a generalized encephalopathy (hypertensive on the last 2 occasions). We will get a brain MRI with and without contrast to assess for posterior reversible encephalopathy syndrome and to rule out a stroke definitively before lowering his blood pressure. (2) AMS (altered mental status): Plan: His symptoms are more consistent with a generalized encephalopathy than and area of stroke. On review of his prior hospitalizations they also appear consistent with a generalized encephalopathy He may have an underlying predisposition with his microvascular ischemic changes - although this was described as mild. Only exacerbating factor gleaned from his history appears to be his hypertension (which does not appear to have had an exacerbating factor and unclear if reactive or cause) and his fasting for his outpatient blood test Possibly shower could make his vasovagal although his blood pressure was high rather than low and never felt dizzy ?mild dehydration - unclear if this is the common thread throughout his visits however his urine specific gravity has always been unremarkable and apart from last hospitalization his BUN has been normal. Repeat TSH and B12 Consult neurology (3) Hypertensive urgency: Plan: Unclear if his high blood pressure is reactive or the cause. Will await brain MRI to see if this can safely be acutely reduced. Otherwise will continue his usual lisinopril 5mg PO QAM, metoprolol succinate 25mg PO BID Will consider workup for pheochromocytoma if brain MRI negative. (4) Hypothyroidism: Plan: TSH 1.268 in September, will repeat Continue levothyroxine 100 mcg PO daily (5) Obstructive sleep apnea: Plan: CPAP HS (6) Carpal tunnel syndrome: Plan: Right median nerve Discussed this incidental diagnosis with the patient and given thenar eminence wasting he should get nerve conduction studies for this as an outpatient. (7) Diabetes mellitus type 2, uncontrolled, with complications: Plan: HbA1C 6.3 in September Hold metformin Novolog: --Goal BSG Range: Low 110 mg/dL, High 140 mg/dL --Correction Factor: 45 mg/dL/unit --Carbohydrate ratio = 15 g/unit --BSGs ACHS if eating, q6h if npo Add Lantus tomorrow if glucose levels running high (8) Hyperlipidemia: Plan: Continue atorvastatin 80mg PO daily Plan VTE Prophylaxis - deferred Diet - heart healthy, T2DM, Low Na Disposition - observation to PCU Admission and Anticipated Discharge Date Admission Date: March 20, 2022 History of Present Illness Chief Complaint: Altered mental state Primary Care Provider: Russ Newsome MD Ever Morales is a 67-year-old male who presents to the ER with confusion. He was reportedly not making sense and repeating himself. He has been seen here several times for similar symptoms. The patient was unable to answer questions appropriately during triage however reportedly back to his normal self now. The patient does not remember this happening. His reports confusion started 1 hour prior to arrival. He was talking in formed sentences without slurred words but they just didn't make sense. He was unable to use the TV remote. He denies any facial droop, extremity weakness or change in sensation. He does report not eating anything today in preparation for a fasting blood test. Episode of confusion occurred after coming out of the shower. The patient has had multiple similar episodes without definitive etiology: In December 2019 was the first time he was admitted with similar symptoms. His workup at the time showed minor electrolyte abnormalities, uncontrolled diabetes. This episode was going on for many days and took a few days to resolve during his admission. He was back to his baseline on discharge. 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 He was not hypertensive during this episode. October 2021 he was seen in the ER and was described as transient word finding difficulty. History was suggestive of mild dehydration and his symptoms resolved. His phosphate was low on this occasion. Magnesium mildly low. Again his symptoms quickly resolved and he was discharged from the ER. 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 Blood pressure was unremarkable. February 06, 2022 he was hospitalized but symptoms were more headache and shortness of breath on this occasion. Given the last two times a tick disease was found he was started on doxycycline for equivocal lyme test although subsequent western blot was normal. He did have hypertensive urgency on this occasion. Subsequent tick borne workup was all negative. No additional medications were given for his blood pressure except for one dose of IV metoprolol in the ER. His hypertension was blamed on Advil which he did not take on this occasion. In the ER a stroke alert was made. He was given 324mg PO aspirin. CT head and CT angio head/neck were unchanged. Admission was recommended by stroke neurologist with brain MRI. Therefore he was referred to medicine for admission and ongoing management of stroke like symptoms. Allergies Allergy/AdvReac Type Severity Reaction Status Date / Time No Known Allergies Allergy Verified 03/20/22 16:57 Home Medications Medication Instructions Recorded Confirmed Type aspirin 81 mg tablet,delayed 81 mg PO HS 02/04/19 03/20/22 History release (Kaela Low Dose Aspirin) omega-3 fatty acids-fish oil 360 1 cap PO DAILY 02/04/19 03/20/22 History mg-1,200 mg capsule (Fish Oil) blood sugar diagnostic (Accu-Chek 01/15/21 02/11/22 History Jennifer Plus test strips) nitroglycerin 0.4 mg sublingual 0.4 mg sublingual UD PRN chest 11/14/21 03/20/22 Rx tablet pain #14 tabs dulaglutide 1.5 mg/0.5 mL 1.5 mg (0.5 mL) subcut .weekly #6 12/24/21 03/20/22 Rx subcutaneous pen injector mL levothyroxine 100 mcg tablet 100 mcg PO DAILYBB 02/06/22 03/20/22 History metformin 1,000 mg tablet 1,000 mg PO BID17 02/06/22 03/20/22 History metoprolol succinate 50 mg 25 mg PO BID17 02/06/22 03/20/22 History tablet,extended release 24 hr paroxetine HCl 20 mg tablet 20 mg PO HS 02/06/22 03/20/22 History allopurinol 300 mg tablet 300 mg PO DAILY #90 tabs 02/28/22 03/20/22 Rx atorvastatin 80 mg tablet 80 mg PO HS #90 tabs 02/28/22 03/20/22 Rx lisinopril 5 mg tablet 5 mg PO QAM #90 tabs 02/28/22 03/20/22 Rx magnesium 250 mg tablet 500 mg PO DAILY 03/20/22 03/20/22 History Past Med/Surg History Medical History (Updated 03/21/22 @ 06:55 by Terell Sharp MD) Colon polyps Diabetes mellitus, type 2 Diabetic nephropathy associated with type 2 diabetes mellitus Gout History of colon polyps History of positive PPD History of rheumatic fever History of rheumatic fever as a child Myocardial Infarction 2007 Skin cancer of nose Tubular adenoma of colon Vitamin D deficiency Surgical History History of cardiac cath 2007 [facility] History of colonoscopy History of heart artery stent [address] 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 History of open reduction and internal fixation (ORIF) procedure R ankle History of tonsillectomy and adenoidectomy History of tooth extraction wisdom teeth Family History Mother , age 79 of complications of diabetes Hypothyroidism Pulmonary tuberculosis Diabetes Father , age 73 of heart disease Coronary heart disease Diabetes Myocardial infarction Stroke Sister Renal failure Heart disease Diabetes Brother Hypothyroidism Grandfather (Paternal) Lung cancer Uncle Myocardial infarction Denies family history of Ovarian cancer Prostate cancer Breast cancer Colorectal cancer Social History Smoking Status: Never smoker Tobacco Type: Smokeless Tobacco (Dip or Chew) Second Hand Exposure: No; Hx Alcohol Use: Yes Alcohol type: beer Alcohol Intake Frequency: Monthly or Less Alcohol Intake Frequency Comment: Rare Hx Substance Use: No Preferred Language: Greenlandic Communication Ability: Effective Visual Impairment: Limited Hearing Ability: Normal Supervisor [employer] Required: No Beliefs That Will Affect Care: None marital status: Current Living Situation: Spouse current occupational status: retired 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) How many Children do You have: 3 Other Information That Helps Us Care for You: No Feels Safe at Home: Yes Safety Concerns: Feels Safe At This Time Childhood Exposure to Second-Hand Smoke: No caffeine: Yes Dental Care, Regularly: No Physical Activity Frequency: Does not Exercise Seatbelt Use: always Sunscreen Use: No Assistive Devices: None Review of Systems Review of Systems: All systems reviewed & are unremarkable except as noted in HPI & below Right hand intermittent numbness Physical Exam Constitutional: WD/WN, vitals as above Eyes: PERRL, conjunctivae normal, anicteric sclerae Neck: trachea midline, no thyromegaly Respiratory: normal respiratory effort, lungs clear to auscultation Cardiovascular: RRR, no murmur, no edema Gastrointestinal (Abdomen): normal bowel sounds, soft, nontender, no hepatosplenomegaly Musculoskeletal: no cyanosis or clubbing, extremities motor strength 5/5 Skin: no rashes, warm and dry Neurologic: moves all extremities and awake; no focal motor deficits and not confused Speech / Cognition: normal speech Motor/Sensory: no tremor, no pronator drift and no sensory deficit Cranial Nerves: PERRL, EOM intact bilaterally, normal facial strength, tongue midline, normal hearing, able to rotate head bilaterally, able to elevate shoulders bilaterally, no nystagmus and symmetric palate elevation Coordination: normal ibzbgd-en-buls test Psychiatric: A+Ox3, euthymic affect Results & Data Results & Data ([facility]) Vital Signs (Past 12 Hours) Vital Signs Temp Pulse Pulse Resp BP BP Pulse Ox 03/20/22 15:30 83 21 203/123 H 97 03/20/22 15:08 36.5 C 85 16 203/109 H 97 O2 Del Method 03/20/22 15:30 Room Air 03/20/22 15:08 Room Air Laboratory Results Abnormal lab results 03/20/22 03/20/22 03/20/22 Range/Units 15:39 15:39 16:10 Immature Gran # (Auto) 0.04 H (0.00-0.02) K/uL Sodium 134 L (136-145) mmol/L Glucose 152 H (70-99(Fasting)) mg/dl POC Glucose 163 H (70-99) mg/dl Total Bilirubin 1.4 H (0.2-1.0) mg/dl Diagnostic Findings XR chest 1V portable CLINICAL HISTORY: Stroke Like Symptoms COMPARISON STUDY: Chest CT February 06, 2022. FINDINGS: No pneumothorax or pleural effusion is present. Cardiomegaly is unchanged. Mild interstitial thickening is present. No consolidation is id entified. There is no pneumothorax or pleural effusion. IMPRESSION: Cardiomegaly with pulmonary vascular congestion. HEAD CT NONCONTRAST CT DOSE: 1422.55 mGy.cm HISTORY: Stroke Like Symptoms TECHNIQUE: Multiaxial CT images of the head were performed without the use of intravenous contrast. Automated exposure control was utilized for this study. A dose lowering technique was utilized adhering to the principles of ALARA. Comparison: Head CT 02/06/2022. Findings: Mild mucosal thickening within the ethmoid air cells, unchanged. The mastoid air cells are clear. The calvarium and skull base are intact. There is no mass, hematoma, midline shift, acute infarct. White matter hypodensity is nonspecific but suggestive of microvascular ischemic change. The ventricles and sulci demonstrate mild age-related involutional changes. Impression: No acute intracranial abnormality. Atrophy and microvascular ischemic changes. HEAD & NECK CTA HISTORY: Stroke Like Symptoms TECHNIQUE: Multiaxial CT images of the head were performed following the intravenous administration of contrast to evaluate the major cerebral vessels. Multiaxial CT images of the neck were also performed following the intravenous administration of contrast to evaluate the major cervical vessels. Maximum intensity projection images were also obtained. A dose lowering technique was utilized adhering to the principles of ALARA. COMPARISON: Head and neck CTA 02/06/2022. FINDINGS: There is no mass, hematoma, midline shift, or acute infarct. Visualized intracranial internal carotid arteries, distal vertebral arteries, and basilar artery are widely patent. There is no significant stenosis, occlusion, or aneurysm seen within the bilateral ACAs, MCAs, or right ACCOUNTS RECEIVABLE SPECIALIST. Hypoplastic. Right vertebral artery and bilateral P1 segments. Mild to moderate multifocal narrowing within the proximal to mid left ACCOUNTS RECEIVABLE SPECIALIST, unchanged. Mild calcified plaque within the bilateral carotid siphons. The major dural venous sinuses are patent. The aortic arch and proximal great vessels are widely patent. There is no significant stenosis, occlusion, or dissection identified within the bilateral common carotid or vertebral arteries. Partially visualized mildly enlarged mediastinal and nodes remain unchanged and are better appreciated on the 02/06/[address] Moderate calcified plaque within the bilateral carotid siphons. This results in 30% stenosis within the proximal right ICA and 20% stenosis within the proximal left ICA. No high-grade stenosis identified within the carotid arteries. This remains unchanged. IMPRESSION: 1. Mild/moderate multifocal focal stenosis within the proximal and mid left ACCOUNTS RECEIVABLE SPECIALIST, unchanged. Otherwise, no significant stenosis, occlusion, or aneurysm within the remaining [place]. 2. No significant stenosis, occlusion, or dissection identified within the bilateral common carotid or vertebral arteries. 3. Moderate calcified plaque within the bilateral carotid bifurcations resulting in 30% stenosis within the proximal right ICA and 20% stenosis within the proximal left ICA. This remains unchanged. 4. Prominent mediastinal lymph nodes are again noted and are better appreciated on the recent chest CTA. Medications Administered ER medications given: Aspirin 324 mg p.o. ECG Rate (beats per minute): 87 Rhythm: normal sinus Findings: no acute ischemic change Comparison ECG Date: from (February 06, 2022) Change: no significant change Code Status & VTE Plan Code Status Full VTE Prophylaxis Plan VTE Prophylaxis will be ordered: Yes PG Care Time/CCT Total # of Minutes Spent Total Time Spent with Patient: Total time spent is greater than 50% in coordination of care (as documented) at patient's floor/unit and/or counseling patient: Coding Level of Care Code INT OBSERVATION CARE 70M LVL 3 Diagnoses Stroke-like symptoms R29.90 AMS (altered mental status) R41.82 Hypertensive urgency I16.0 Hypothyroidism E03.9 Obstructive sleep apnea G47.33 Carpal tunnel syndrome G56.00 Diabetes mellitus type 2, uncontrolled, with complications E11.8; E11.65 Hyperlipidemia E78.2 Hyperlipidemia type: mixed hyperlipidemia (1) Hyperlipidemia Hyperlipidemia type: mixed hyperlipidemia Qualified Code(s): E78.2 - Mixed hyperlipidemia
[2022-03-20 18:14] LABS: Appearance Urine Clear (Clear); Bilirubin Urine Negative (Negative); Blood Urine Negative (Negative); Color Urine Yellow; Glucose Urine UA Negative (Negative); Ketones Urine Negative (Negative); Leukocyte Esterase Urine Negative (Negative); Nitrite Urine Negative (Negative); Protein Urine Negative (Negative); Specific Gravity Urine 1.016 (1.000-1.030); Urobilinogen Urine Negative (Negative)
[2022-03-20] MEDS ORDERED: ACETAMINOPHEN 325 MG TAB PO PRN (19:51)
--- NOTE | 2022-03-20 19:56 | Magnetic Resonance Report ---
Brain MRI WITH AND WITHOUT CONTRAST HISTORY: Confusion. ?PRES TECHNIQUE: Multiplanar multisequence MRI of the brain was performed both before and after the intrave nous administration of contrast. COMPARISON STUDY: Head CT 03/20/2022. Brain MRI 12/22/2019. FINDINGS: There is no mass, hematoma, midline shift, or acute infarct. Mild mucosal thickening within the ethmoid air cells. The mastoid air cells are clear. The ventricles and sulci demonstrate mild ag e-related involutional changes. Scattered foci of T2 hyperintensity seen within the periventricular a nd subcortical white matter are nonspecific but suggestive of mild microvascular ischemic changes. Th is is similar to the prior study. The major vascular flow voids at the skull base are well-maintained . No new areas of abnormal signal intensity within the posterior cerebral or cerebellar hemispheres. Postcontrast sequences show no areas of abnormal enhancement. IMPRESSION: No significant change compared to the prior study. No acute intracranial abnormality. ACT 112: Negative or not required by law. Electronically signed by: Jose Amos M.D. 03/20/2022 7:54 PM
[2022-03-20] MEDS ORDERED: NITROGLYCERIN SL 0.4 MG/TAB TAB SL PRN (20:58)
[2022-03-20] MEDS ORDERED: DEXTROSE 50% 50 ML SYRINGE IV PRN (21:16)
[2022-03-20] MEDS ORDERED: CARBOHYDRATES FOR HYPOGLYCEMIA PO PRN (21:16)
[2022-03-20] MEDS ORDERED: GLUCOSE 10 TAB/TUBE PO PRN (21:16)
[2022-03-20] MEDS ORDERED: GLUCAGON FOR INJ 1 MG VIAL SQ PRN (21:16)
[2022-03-20] MEDS ORDERED: GLUCOSE 40% GEL 15 GM TUBE PO PRN (21:16)
[2022-03-20 21:43] LABS: Lyme Ab IgG w/WB Rflx Negative (Negative); Lyme Ab IgM w/WB Rflx Equivocal (Negative)
[2022-03-20] MEDS: METOPROLOL SUCC 25MG EXT REL TAB PO SCH (21:53)
[2022-03-20] MEDS: PARoxetine HCL 20 MG TAB PO SCH (21:53)
[2022-03-20] MEDS: ATORVASTATIN 40 MG TAB PO SCH (21:53)
[2022-03-21 03:22] LABS: Amphetamines+Metham, Urine Neg (Neg); Barbiturates, Urine Neg (Neg); Benzodiazepine, Urine Neg (Neg); Cocaine, Urine Neg (Neg); MDMA (Ecstacy), Urine Neg (Neg); Methadone, Urine Neg (Neg); Opiate, Urine Neg (Neg); Phencyclidine, Urine Neg (Neg)
[2022-03-21] MEDS: LEVOTHYROXINE SODIUM 100 MCG TABLET PO SCH (05:48)
[2022-03-21 06:35] LABS: Basophils # (auto) 0.06 K/uL (0-0.2); Basophils % (auto) 0.8 %; Eosinophils # (auto) 0.12 K/uL (0-0.50); Eosinophils % (auto) 1.7 %; Hematocrit (blood only) 43.3 % (40.1-51.0); Hemoglobin 14.9 g/dl (14.0-18.0); Immature Granulocytes # (auto) 0.05 K/uL (0.00-0.02); Immature Granulocytes % (auto) 0.7 %; Lymphocytes # (auto) 1.86 K/uL (1.2-3.4); Lymphocytes % (auto) 25.9 %; Mean Corpuscular Hemoglobin 30.8 pg (25.0-34.0); Mean Corpuscular Hgb Conc 34.4 g/dL (32.0-36.0); Mean Corpuscular Volume 89.6 fL (80.0-100.0); Mean Platelet Volume 9.5 fL (9.4-12.4); Monocytes # (auto) 0.91 K/uL (0.24-0.82); Monocytes % (auto) 12.7 %; Neutrophils # (auto) 4.17 K/uL (1.4-6.5); Neutrophils % (auto) 58.2 %; Platelet Count 266 K/uL (130-400); RDW Standard Deviation 42.7 fL (36.4-46.3); Red Blood Count 4.83 M/uL (4.63-6.08); White Blood Count 7.17 K/ul (4.8-10.8)
[2022-03-21 07:06] LABS: Albumin Globulin Ratio 1.8 (0.9-2); Albumin Level 3.9 gm/dl (3.4-5.0); BUN Creatinine Ratio 13.3 (10-20); Bilirubin,Total 1.8 mg/dl (0.2-1.0); Creatinine Clr Calc Pharmacy 89.3 ml/min; Est GFR (African American) 78.1 ml/min; Est GFR (Non-African American) 67.4 ml/min; Globulin 2.2 gm/dl (2.5-4.0); Potassium 4.1 mmol/L (3.5-5.1); Total Protein 6.1 gm/dl (6.0-8.3)
[2022-03-21 08:11] LABS: Estimated Average Glucose 180 mg/dl; Hemoglobin A1C 7.9 % (4.5-5.6)
--- NOTE | 2022-03-21 08:16 | Electrocardiogram Report ---
Test Reason : Blood Pressure : / mmHG Vent. Rate : 087 BPM Atrial Rate : 087 BPM P-R Int : 176 ms QRS Dur : 082 ms QT Int : 372 ms P-R-T Axes : 054 -08 042 degrees QTc Int : 447 ms Poor data quality, interpretation may be adversely affected Normal sinus rhythm possible Inferior infarct , age undetermined Abnormal ECG When compared with ECG of 06-FEB-2022 03:38, No significant change was found Confirmed by Jaya Barker ([id number]) on 03/21/2022 8:15:47 AM Referred By: Confirmed By:Fadi Barker
[2022-03-21] MEDS: OMEGA-3 (PURIFIED FISH OIL) 1 GM CAP PO SCH (08:38)
[2022-03-21] MEDS: allopurinoL 300 MG TAB PO SCH (08:38)
[2022-03-21] MEDS: MAGNESIUM OXIDE 400 MG TAB PO SCH (08:38)
[2022-03-21] MEDS: METOPROLOL SUCC 25MG EXT REL TAB PO SCH ×2 (08:38→17:49)
[2022-03-21] MEDS: INSULIN ASPART PER UNIT SC SCH ×4 (08:45→21:03)
[2022-03-21] MEDS ORDERED: lisinopril 5 MG TAB PO SCH (09:00)
--- NOTE | 2022-03-21 11:33 | Electroencephalogram ---
EEG Procedure Note Date of Service March 21, 2022 Start / End Times Start Time: 10:42 AM End Time: 11:02 AM Referring Physician Donald Stern MD History Encephalopathy, rule out seizure activity Home Medication List Medication Instructions Recorded Confirmed Type aspirin 81 mg tablet,delayed 81 mg PO HS 02/04/19 03/20/22 History release (Kaela Low Dose Aspirin) omega-3 fatty acids-fish oil 360 1 cap PO DAILY 02/04/19 03/20/22 History mg-1,200 mg capsule (Fish Oil) blood sugar diagnostic (Accu-Chek 01/15/21 02/11/22 History Jennifer Plus test strips) nitroglycerin 0.4 mg sublingual 0.4 mg sublingual UD PRN chest 11/14/21 03/20/22 Rx tablet pain #14 tabs dulaglutide 1.5 mg/0.5 mL 1.5 mg (0.5 mL) subcut .weekly #6 12/24/21 03/20/22 Rx subcutaneous pen injector mL levothyroxine 100 mcg tablet 100 mcg PO DAILYBB 02/06/22 03/20/22 History metformin 1,000 mg tablet 1,000 mg PO BID17 02/06/22 03/20/22 History metoprolol succinate 50 mg 25 mg PO BID17 02/06/22 03/20/22 History tablet,extended release 24 hr paroxetine HCl 20 mg tablet 20 mg PO HS 02/06/22 03/20/22 History allopurinol 300 mg tablet 300 mg PO DAILY #90 tabs 02/28/22 03/20/22 Rx atorvastatin 80 mg tablet 80 mg PO HS #90 tabs 02/28/22 03/20/22 Rx lisinopril 5 mg tablet 5 mg PO QAM #90 tabs 02/28/22 03/20/22 Rx magnesium 250 mg tablet 500 mg PO DAILY 03/20/22 03/20/22 History Inpatient Medication List Allopurinol (Allopurinol 300 Mg Tab) 300 mg PO DAILY CHRISTINA Stop: 04/20/22 08:59 Last Admin: 03/21/22 08:38 Dose: 300 mg Documented By: WS Atorvastatin Calcium (Atorvastatin 40 Mg Tab) 80 mg PO HS CHRISTINA Stop: 04/19/22 20:59 Last Admin: 03/20/22 21:53 Dose: 80 mg Documented By: CF Fish Oil ([place]-3 (Purified Fish Oil) 1 Gm Cap) 1 gm PO DAILY CHRISTINA Stop: 04/20/22 08:59 Last Admin: 03/21/22 08:38 Dose: 1 gm Documented By: WS Insulin Aspart (Insulin Aspart Per Unit) 0 units SC ACHS CHRISTINA Stop: 04/20/22 07:29 Last Admin: 03/21/22 08:45 Dose: 3 units Documented By: WS Co-signed By: CA Levothyroxine Sodium (Levothyroxine Sodium 100 Mcg Tablet) 100 mcg PO DAILYBB CHRISTINA Stop: 04/20/22 06:29 Last Admin: 03/21/22 05:48 Dose: 100 mcg Documented By: CF Lisinopril (Lisinopril 5 Mg Tab) 5 mg PO QAM CHRISTINA Stop: 04/20/22 08:59 Last Admin: 03/21/22 08:38 Dose: 5 mg Documented By: WS Magnesium Oxide (Magnesium Oxide 400 Mg Tab) 400 mg PO DAILY CHRISTINA Stop: 04/20/22 08:59 Last Admin: 03/21/22 08:38 Dose: 400 mg Documented By: WS Metoprolol Succinate (Metoprolol Succ 25mg Ext Rel Tab) 25 mg PO BID17 CHRISTINA Stop: 04/19/22 20:59 Last Admin: 03/21/22 08:38 Dose: 25 mg Documented By: Admin: 03/20/22 21:53 Dose: 25 mg Documented By: CF Paroxetine HCl (Paroxetine Hcl 20 Mg Tab) 20 mg PO HS CHRISTINA Stop: 04/19/22 20:59 Last Admin: 03/20/22 21:53 Dose: 20 mg Documented By: CF Discontinued Medications Aspirin (Aspirin Chew 324 Mg) 324 mg PO NOW STA Stop: 03/20/22 16:37 Last Admin: 03/20/22 16:44 Dose: 324 mg Documented By: [facility] Ioversol (Optiray 300 500ml) 110 ml IV ONCE ONE Stop: 03/20/22 16:10 Last Admin: 03/20/22 16:10 Dose: 110 ml Documented By: RHD Description This is a 21 electrode EEG with a single channel dedicated to limited EKG. The electrodes were placed in accordance with the International 10-20 system. There is a posterior dominant rhythm of 10 Hz which is symmetrically distributed and attenuates with eye opening. There is a normal anterior to posterior organization. Photic stimulation is unremarkable. Hyperventilation is not performed. There is a symmetric frontal beta rhythm. There is no focal slowing. There are no epileptiform abnormalities. There are no sleep changes. Interpretation Normal-appearing awake/drowsy EEG. A normal EEG does not completely exclude a diagnosis of epilepsy. There are no changes suggestive of encephalopathy at this time. [facility] EEG Procedure Codes Indication for Procedure (1) Encephalopathy: Neurology Neurology: [id number] EEG include record awake & drowsy
--- NOTE | 2022-03-21 11:42 | Neurology Consultation ---
Date of Consultation March 21, 2022 Assessment & Plan (1) Encephalopathy: (2) Stroke-like symptoms: (3) Hypertensive urgency: Plan 67-year-old male presenting with recurrent episodes of confusion, most recent episode characterized by inability to correctly operate remote control for the television, apparently attempting to enter a telephone number instead of channel number. He may have had some difficulty with speech at that time as well, nonsense words, intact fluency. The symptoms occurred in the context of significantly elevated blood pressure, up to 203/123. He has had similar presentations in the past, some with associated word finding difficulty/aphasia. This patient may be experiencing recurrent TIA. He does have multifocal atherosclerotic disease on CT angiography of the head and neck, but no hemodynamically significant stenosis/lesion identified. No known history of atrial fibrillation. He is on daily low-dose aspirin and high dose atorvastatin. He does have diabetes mellitus that appears to be suboptimally controlled with a recent hemoglobin A1c of 7.9. I would recommend dual antiplatelet therapy for the next 3 weeks, add clopidogrel 75 mg/day to aspirin 81 mg/day. After 3 weeks, would discontinue aspirin in favor of clopidogrel monotherapy. Continue with atorvastatin 80 mg/day. Continue medical management of hypertension which was clearly significantly elevated at the time of this recent presentation. Would also recommend 30-day mobile cardiac outpatient telemetry. History of Present Illness Reason for Consultation: Altered mental status Requesting Physician: Terell Sharp MD Attending Physician: Abram Bonner DO History of Present Illness The patient is a 67-year-old male who presented to the emergency department yesterday with a chief complaint of confusion. According to patient's spouse, who was present at bedside this morning, he was having difficulty operating the television remote control. He apparently was attempting to enter and a telephone number, rather than a channel number in spite of his prompting him on what to do. He also has some difficulty with speech at that time, fluent, but words did not make much sense. There were no other associated symptoms such as facial droop, hemiparesis, vertigo, dizziness, or change in vision. The symptoms resolved during his evaluation in the emergency department although he was noted to have some intermittent difficulty with speech at that time. He did have a telestroke consultation although thrombolytics were not administered given his symptomatic resolution. He was notably hypertensive at that time with a blood pressure of 203/109, followed by another blood pressure of 203/123. His blood pressure is considerably improved this morning, currently 120/74. According to the patient's spouse, he has had similar episodes of confusion previously. [facility] under similar circumstances this past January, hypertensive urgency, recent tick bite, equivocal Lyme testing, treated with doxycycline and antihypertensives. He was seen in the emergency department this past October for transient word finding difficulty lasting about an hour, apparently had a positive anaplasmosis test at that time. Was treated with azithromycin and atovaquone. He had also been seen by Dr. Lawton during a hospitalization in December 2019 for encephalopathy of undetermined etiology. He saw Dodie Peralta PA-C, for a follow-up appointment in neurology clinic in December 2019 as well, episode of encephalopathy potentially multifactorial related to poorly controlled diabetes, hyperglycemia, hyponatremia, at that time. Recommendation was to follow-up with neurology on an as-needed basis. This morning, the patient appears to be back at his baseline. No word finding difficulty, no confusion, no disorientation. He de nies headache or other worrisome neurologic symptoms. Past medical history notable for morbid obesity, obstructive sleep apnea on CPAP, compliant, hypertension, reported compliance with medications, type 2 diabetes mellitus with associated diabetic peripheral neuropathy, hyperlipidemia. Allergies Allergy/AdvReac Type Severity Reaction Status Date / Time No Known Allergies Allergy Verified 03/20/22 16:57 Home Medications Medication Instructions Recorded Confirmed Type aspirin 81 mg tablet,delayed 81 mg PO HS 02/04/19 03/20/22 History release (Kaela Low Dose Aspirin) omega-3 fatty acids-fish oil 360 1 cap PO DAILY 02/04/19 03/20/22 History mg-1,200 mg capsule (Fish Oil) blood sugar diagnostic (Accu-Chek 01/15/21 02/11/22 History Jennifer Plus test strips) nitroglycerin 0.4 mg sublingual 0.4 mg sublingual UD PRN chest 11/14/21 03/20/22 Rx tablet pain #14 tabs dulaglutide 1.5 mg/0.5 mL 1.5 mg (0.5 mL) subcut .weekly #6 12/24/21 03/20/22 Rx subcutaneous pen injector mL levothyroxine 100 mcg tablet 100 mcg PO DAILYBB 02/06/22 03/20/22 History metformin 1,000 mg tablet 1,000 mg PO BID17 02/06/22 03/20/22 History metoprolol succinate 50 mg 25 mg PO BID17 02/06/22 03/20/22 History tablet,extended release 24 hr paroxetine HCl 20 mg tablet 20 mg PO HS 02/06/22 03/20/22 History allopurinol 300 mg tablet 300 mg PO DAILY #90 tabs 02/28/22 03/20/22 Rx atorvastatin 80 mg tablet 80 mg PO HS #90 tabs 02/28/22 03/20/22 Rx lisinopril 5 mg tablet 5 mg PO QAM #90 tabs 02/28/22 03/20/22 Rx magnesium 250 mg tablet 500 mg PO DAILY 03/20/22 03/20/22 History Patient History Medical History (Updated 03/21/22 @ 11:32 by Donald Stern MD) Colon polyps Diabetes mellitus, type 2 Diabetic nephropathy associated with type 2 diabetes mellitus Gout History of colon polyps History of positive PPD History of rheumatic fever History of rheumatic fever as a child Myocardial Infarction 2007 Skin cancer of nose Tubular adenoma of colon Vitamin D deficiency Surgical History History of cardiac cath 2007 @[facility] History of colonoscopy History of heart artery stent 2007 @ [facility] 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 History of open reduction and internal fixation (ORIF) procedure R ankle History of tonsillectomy and adenoidectomy History of tooth extraction wisdom teeth Family History Mother , age 79 of complications of diabetes Hypothyroidism Pulmonary tuberculosis Diabetes Father , age 73 of heart disease Coronary heart disease Diabetes Myocardial infarction Stroke Sister Renal failure Heart disease Diabetes Brother Hypothyroidism Grandfather (Paternal) Lung cancer Uncle Myocardial infarction Denies family history of Ovarian cancer Prostate cancer Breast cancer Colorectal cancer Social History Smoking Status: Never smoker Tobacco Type: Smokeless Tobacco (Dip or Chew) Second Hand Exposure: No; Hx Alcohol Use: Yes Alcohol type: beer Alcohol Intake Frequency: Monthly or Less Alcohol Intake Frequency Comment: Rare Hx Substance Use: No Preferred Language: Amharic Communication Ability: Effective Visual Impairment: Limited Hearing Ability: Normal Activity Director Required: No Beliefs That Will Affect Care: None marital status: Current Living Situation: Spouse current occupational status: retired 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) How many Children do You have: 3 Other Information That Helps Us Care for You: No Feels Safe at Home: Yes Safety Concerns: Feels Safe At This Time Childhood Exposure to Second-Hand Smoke: No caffeine: Yes Dental Care, Regularly: No Physical Activity Frequency: Does not Exercise Seatbelt Use: always Sunscreen Use: No Assistive Devices: None Review of Systems Constitutional: no fever and no chills Eyes: no blind spots and no diplopia Ear, Nose, Mouth, Throat: no tinnitus and no hearing loss Respiratory: no cough and no dyspnea Cardiovascular: no chest pain and no palpitations Gastrointestinal: no nausea and no vomiting Genitourinary: no dysuria or no urinary incontinence Musculoskeletal: no back pain, no neck pain and no myalgia Integumentary: no rash and no lesions Neurologic: as per Subjective / HPI; no localized weakness, no tremor(s) and no headache(s) Psychiatric: no depression and no anxiety Hematologic / Lymphatic: no easy bleeding and no easy bruising Exam (Neuro) Constitutional: well developed and well nourished; no acute distress Eyes: normal visual brown by confrontation, PERRL, normal accommodation and EOM intact bilaterally; no fundoscopic abnormality, no nystagmus and no papilledema Cardiovascular: Vessels: normal carotid upstroke; no carotid bruit Neurologic: Oriented to:: Person, Place and Time Memory: Short Term Intact and Remote Intact Attention: Span Intact and Concentration Intact Language: Naming Objects and Repeating Phrases Speech Fluency: negative Dysarthria Speech Aphasia: negative Aphasia Fund of Knowledge: Current Events, Past History and Vocabulary Cranial Nerves: Normal II (Visual brown full to confrontation, visual acuity normal), III, IV, (Pupils equal round reactive to light and accommodation, eye movements normal), V (Facial sensation intact), VII (There is no facial droop or weakness), VIII (Hearing intact), IX, X (Palate elevates to midline), XI (Shoulder shrug intact) and XII (Tongue protrudes to midline) Motor Strength: Normal Lower Extremities and Normal Upper Extremities; negative Pronator Drift Motor Tone: Normal Lower Extremities and Normal Upper Extremities Muscle Bulk/Involuntary Movements: No Involuntary Movements; negative Muscle Atrophy Sensation: Light Touch Intact and Proprioception Intact; negative Pain/Temperature Intact or Vibration Intact Coordination: Normal; negative Limited Balance, Dysdiadochokinesia, Finger-Nose Abnormal or Heel-Vines Abnormal Deep Tendon Reflexes: Rt Triceps: 1+, Lt Triceps: 1+, Rt Biceps: 1+, Lt Biceps: 1+, Rt Brachioradialis: 1+, Lt Brachioradialis: 1+, Rt Patellar: 1+, Lt Patellar: 1+, Rt Ankle: 0 and Lt Ankle: 0 Special Tests: negative Babinski Present Details: Gait not tested in the context of patient's current neurological status. Results & Data ([facility]) Vital Signs (Past 12 Hours) Vital Signs Temp Pulse Pulse Resp BP Pulse Ox O2 Del Method 03/21/22 11:16 36.8 C 78 18 120/74 94 Room Air 03/21/22 06:15 85 03/21/22 07:23 37.0 C 78 18 128/67 94 Room Air 03/21/22 03:58 75 20 95 03/21/22 03:00 37.0 C 85 22 141/75 H 90 CPAP 03/21/22 01:14 89 23 95 03/20/22 23:48 91 H FiO2 03/21/22 11:16 03/21/22 06:15 03/21/22 07:23 03/21/22 03:58 21 03/21/22 03:00 03/21/22 01:14 21 03/20/22 23:48 Laboratory Results WBC 7.17, hemoglobin 14.9, hematocrit 43.3, MCV 89.6, platelet count 266, sodium 135, potassium 4.1, BUN 15, creatinine 1.13, glucose 162, hemoglobin A1c 7.9, calcium 9.0, AST 16, ALT 22, ammonia 30.0, vitamin B12 168, TSH 1.132, prolactin 7.99, urinalysis negative, urine drug screen/talk screen negative. Anaplasmosis and babesiosis smear is negative. Lyme screen negative. (I see he did have a positive babesiosis DNA test this past October. A Lyme Western blot from this past January was negative, 1 reactive IgG band only.) Diagnostic Findings CT of the head negative for hemorrhage or acute process. 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 Otherwise, no significant stenosis, occlusion or aneurysm within the remaining [place]. No significant stenosis, occlusion, or dissection identified within the bilateral common carotid or vertebral arteries. There is moderate calcified plaque within the bilateral carotid bifurcations resulting in 30% stenosis within the proximal right ICA and 20% stenosis within the proximal left ICA. Unchanged. Prominent mediastinal lymph nodes again seen. Better appreciated on previous CTA of the chest. MRI of the brain negative for acute or subacute stroke. I did independently review these images, no restricted diffusion, no pathologic blooming artifact. There is mild microvascular ischemic change. An electrocardiogram revealed a normal sinus rhythm, 87 bpm. An echocardiogram completed February 06, 2022, previous admission, revealed moderate aortic stenosis, technically limited study, left ventricular function normal, EF 55 to 60%, mild concentric left ventricular hypertrophy, grade 1 diastolic dysfunction, left atrial size normal, interatrial septum intact. An electroencephalogram completed this morning is normal. Normal 10 Hz alpha rhythm, no epileptiform abnormalities. Coding Level of Care Code 47017 Initial Inpt Care Lvl 3 Diagnoses Encephalopathy G93.40 Stroke-like symptoms R29.90 Hypertensive urgency I16.0
--- NOTE | 2022-03-21 16:07 | Hospitalist Progress Note ---
Date of Service March 21, 2022 Assessment & Plan (1) TIA (transient ischemic attack): Plan: 67-year-old male with a history of hypertension, hypothyroidism, SOCORRO (on CPAP), suboptimally controlled DM2, and hyperlipidemia, who presented to the hospital with his with acute onset confusion in the setting of subacute history of similar episodes x3, who was admitted for work-up of strokelike symptoms. Now being managed for presumed TIA. Transient ischemic attack/strokelike symptoms -Presented with complaint of acute confusion. Patient had presented on 3 previous occasions, the work-up for which had yielded nothing save for tickborne infections (anaplasmosis, babesiosis). -On most recent presentation in January 2022, tickborne illness work-up was negative. Rest of work-up also negative. Tickborne illness panel negative on this admission as well. -ED course notable for hypertensive emergency (BP: 203/123). Confusion resolved at the time of admission. Initial labs within normal limits, noncontributory. Based on HPI, stroke alert called. Imaging (CT head, CTA neck, MRI brain) negative for acute intracranial process. EEG negative. Patient admitted for further work-up, evaluation by neurologist. -Hemoglobin A1c 7.9%, B12 of 168 pg/mL, urine tox screen negative. Anaplasmosis, Babesia serologies, urine metanephrines pending. -Neurology consult: Suspect TIA. Recs below * DAPT: Clopidogrel 75 mg a day, aspirin 81 mg a day x3 weeks. Discontinue aspirin after 3 weeks, continue clopidogrel monotherapy. * Atorvastatin 80 mg/day * Continue medical management of hypertension: Switching from lisinopril to irbesartan. Plan to continue at discharge. Hypertensive urgency/hypertension -Patient has history of high blood pressure, which until now, has only been managed on lisinopril 5 mg daily. -Given suboptimal pressure coverage, hypertensive urgency on presentation, strongly suspect presenting symptoms attributable to hypertension. Adjusting antihypertensive regimen, which will continue on discharge. * Stopping home lisinopril. Switching to irbesartan. Continue discharge Hypothyroidism: TSH within normal limits. Continue home levothyroxine SOCORRO: CPAP nightly DM2: Hemoglobin A1c-7.9%. Holding home metformin. Glucose management by glycemic consult. Code: Full code Dispo: Med-Surg with telemetry FEN/GI: Diabetic diet DVT Prophylaxis: Clopidogrel, aspirin Consults: Neurology (2) AMS (altered mental status): (3) Stroke-like symptoms: (4) Hypertensive urgency: Admission and Anticipated Discharge Date Admission Date: March 20, 2022 Supervising Physician Co-Signing Physician Notes I saw and examined patient. I agree with assessment/plan as documented by Dr. Orellana. Patient presents with symptoms consistent with TIA. I feel that his blood pressure being in the hypertensive emergency range of 200 systolic was a big contributor. The CTA of his neck was reviewed and showed mild carotid stenosis. Agree with neurology recommendations of care to transition to both aspirin and Plavix for 3 weeks and then discontinuing aspirin and continuing with Plavix monotherapy. Agree with transitioning him from an CHUCHO inhibitor to an ARB. He is treated for sleep apnea with a CPAP. Will be important that blood pressure control is strong going forward to prevent further episodes of TIA. He has a home blood pressure cuff and will be consistently using this. Once patient is stable for discharge then recommend follow-up with primary care physician in the outpatient setting for further monitoring of blood pressure. If we are worried about a secondary cause of hypertension, consider renal ultrasound to rule out renal artery stenosis. Urine metanephrine and urine tox are pending as well. Subjective Patient is seated in bed upon arrival. Patient recalls feeling confused and unable to change the channel. He noticed that his felt that he was confused, and she brought him to the hospital. In discussion with his , who is at bedside later in the day, she reports he was in his usual state of health working in the [employer] but acted strange when he returned. She noticed he was sitting down trying to watch a channel he does not normally watch but then when she asked him to change the channel, he told her he "did not know how." When she then told him what channel to change the TV to, he responded by reciting their phone number. At that point, she asked him to put on his shoes and come with her to the hospital. She denies any facial droop, focal extremity weakness. He was able to put on his shoes and get dressed under his own power and is otherwise asymptomatic but for the confusion. Today, he has no complaints. He denies headache, dizziness, vision changes, chest pain or chest tightness. Per nursing, he was able to walk 3 laps around the hospital waiting without any difficulty or incident. Review of Systems Review of Systems: All systems reviewed & are unremarkable except as noted in HPI & below Physical Exam Physical Exam: General: Well-appearing, alert, interactive, and in no acute distress. HEENT: Normocephalic, atraumatic. EOM intact. Good conjugate gaze. Nares patent. Moist mucosal membranes. Neck: Supple. No lymphadenopathy. Normal ROM. CV: Regular rate and rhythm. Normal S1 and S2. No murmurs, gallops, or rubs. Respiratory: Normal respiratory effort. Lungs clear to auscultation bilaterally. No crackles, rhonchi, or wheezes. Abdomen: Soft, nondistended abdomen. No bruits heard on auscultation. No tenderness to deep palpation. Extremities: Capillary refill <2 sec. 2+ dp equal bilaterally. No pedal edema. Neuro: Alert and oriented x3. No focal motor/sensory deficits. CN II through XII intact bilaterally. No dysmetria on finger-nose testing. Skin: Clean, dry, and intact. No rashes, bruises, or erythema. Results & Data Results & Data ([facility]) Vital Signs (Past 12 Hours) Vital Signs Temp Pulse Pulse Resp BP Pulse Ox O2 Del Method 03/21/22 15:16 36.7 C 73 17 130/67 92 Room Air 03/21/22 11:16 36.8 C 78 18 120/74 94 Room Air 03/21/22 06:15 85 03/21/22 07:23 37.0 C 78 18 128/67 94 Room Air 03/21/22 03:58 75 20 95 FiO2 03/21/22 15:16 03/21/22 11:16 03/21/22 06:15 03/21/22 07:23 03/21/22 03:58 21 Resident Activity Tracking Resident Involvement: Resident Care Provided Care Provided: [facility]
[2022-03-21] MEDS ORDERED: OPTIRAY 300 500mL IV ONE (17:15)
--- NOTE | 2022-03-21 17:31 | CT Scan Report ---
CT ANGIOGRAM OF THE ABDOMEN AND PELVIS CLINICAL HISTORY: Renal artery stenosis. COMPARISON STUDY: Abdominal CT dated 12/22/2019. TECHNIQUE: Following the IV administration of 109 cc of Optiray 300, CT angiogram of the abdomen and pelvis was performed from the lung bases the proximal femora. Images are reviewed in the axial, sagit mary jane, and coronal planes. 3-D MIPS images are created and assessed. IV contrast was administered witho ut complication. A dose lowering technique was utilized adhering to the principles of ALARA. CT DOSE: 1913.82 mGy.cm FINDINGS: Lower chest: The heart is mildly enlarged and without pericardial effusion. The coronary arteries are densely calcified. The lung bases are clear. Liver: The contrast-enhanced liver is normal in size, contour, and attenuation. There is no intrahepa tic biliary ductal dilatation. Gallbladder: Unremarkable. Spleen: Normal in size and attenuation living heterogeneous arterial phase enhancement. Pancreas: Mild atrophic and grossly unremarkable. Adrenal glands: Unremarkable. Kidneys: The contrast enhanced kidneys demonstrate cortical atrophy and are without hydronephrosis. T he kidneys enhance symmetrically. Abdominal aorta and iliac arteries: The abdominal aorta is normal in course and caliber noting mild t o moderate atherosclerotic calcification. No dissection is seen. The iliac arteries are widely patent bilaterally. Major branches of the abdominal aorta: The celiac trunk, superior mesenteric, and inferior mesenteric arteries are widely patent. Hepatic arterial anatomy is conventional. The splenic artery is patent. There are single bilateral renal arteries. The renal arteries are widely patent bilaterally with no e vidence of stenosis. Bowel: There is moderate colonic fecal retention. No bowel obstruction is seen. The appendix is well -visualized and normal. Peritoneum: There is no intraperitoneal free air or abdominal ascites. There is a small fat-containin g umbilical hernia. Lymphadenopathy: None. Pelvic viscera: The prostate gland is mildly enlarged and heterogeneous. The bladder wall is mildly t hickened/trabeculated indicating chronic outlet obstruction. Skeletal structures: The skeletal structures are osteopenic. There is mild lumbosacral spondylosis. N o destructive bony lesions are seen. IMPRESSION: 1. Unremarkable CT angiogram of the abdominal aorta and its major branches. Specifically, there is no CT evidence of renal artery stenosis as clinically queried. 2. Advanced coronary artery calcification. 3. No acute infectious or inflammatory findings are identified in the abdomen or pelvis. 4. Additional findings as above. ACT 112: Negative or not required by law. Electronically signed by: Parveen Mckeon M.D. 03/21/2022 5:30 PM
[2022-03-21] MEDS: CLOPIDOGREL BISULFATE 75 MG TAB PO SCH (17:48)
[2022-03-21] MEDS ORDERED: ASPIRIN 81 MG ECTAB PO SCH (21:00)
[2022-03-21] MEDS: ATORVASTATIN 40 MG TAB PO SCH (21:03)
[2022-03-21] MEDS: PARoxetine HCL 20 MG TAB PO SCH (21:03)
[2022-03-22] MEDS: LEVOTHYROXINE SODIUM 100 MCG TABLET PO SCH (04:44)
--- NOTE | 2022-03-22 07:08 | Discharge Summary ---
Date of Service March 22, 2022 Admission HPI Per Admitting Provider Ever Morales is a 67-year-old male who presents to the ER with confusion. He was reportedly not making sense and repeating himself. He has been seen here several times for similar symptoms. The patient was unable to answer questions appropriately during triage however reportedly back to his normal self now. The patient does not remember this happening. His reports confusion started 1 hour prior to arrival. He was talking in formed sentences without slurred words but they just didn't make sense. He was unable to use the TV remote. He denies any facial droop, extremity weakness or change in sensation. He does report not eating anything today in preparation for a fasting blood test. Episode of confusion occurred after coming out of the shower. The patient has had multiple similar episodes without definitive etiology: In December 2019 was the first time he was admitted with similar symptoms. His workup at the time showed minor electrolyte abnormalities, uncontrolled diabetes. This episode was going on for many days and took a few days to resolve during his admission. He was back to his baseline on discharge. 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 He was not hypertensive during this episode. October 2021 he was seen in the ER and was described as transient word finding diff iculty. History was suggestive of mild dehydration and his symptoms resolved. His phosphate was low on this occasion. Magnesium mildly low. Again his symptoms quickly resolved and he was discharged from the ER. 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 Blood pressure was unremarkable. February 06, 2022 he was hospitalized but symptoms were more headache and shortness of breath on this occasion. Given the last two times a tick disease was found he was started on doxycycline for equivocal lyme test although subsequent western blot was normal. He did have hypertensive urgency on this occasion. Subsequent tick borne workup was all negative. No additional medications were given for his blood pressure except for one dose of IV metoprolol in the ER. His hypertension was blamed on Advil which he did not take on this occasion. In the ER a stroke alert was made. He was given 324mg PO aspirin. CT head and CT angio head/neck were unchanged. Admission was recommended by stroke neurologist with brain MRI. Therefore he was referred to medicine for admission and ongoing management of stroke like symptoms. Principal Diagnosis Constitutional: WD/WN, vitals as above Eyes: PERRL, conjunctivae normal, anicteric sclerae Neck: trachea midline, no thyromegaly Respiratory: normal respiratory effort, lungs clear to auscultation Cardiovascular: RRR, no murmur, no edema Gastrointestinal (Abdomen): normal bowel sounds, soft, nontender, no hepatosplenomegaly Musculoskeletal: no cyanosis or clubbing, extremities motor strength 5/5 Skin: no rashes, warm and dry Neurologic: moves all extremities and awake; no focal motor deficits and not confused Speech / Cognition: normal speech Motor/Sensory: no tremor, no pronator drift and no sensory deficit Cranial Nerves: PERRL, EOM intact bilaterally, normal facial strength, tongue midline, normal hearing, able to rotate head bilaterally, able to elevate shoulders bilaterally, no nystagmus and symmetric palate elevation Coordination: normal [id number] test Psychiatric: A+Ox3, euthymic affect Discharge Exam General: Well-appearing, alert, interactive, and in no acute distress. HEENT: Normocephalic, atraumatic. EOM intact. Good conjugate gaze. Nares patent. Moist mucosal membranes. Neck: Supple. No lymphadenopathy. Normal ROM. CV: Regular rate and rhythm. Normal S1 and S2. No murmurs, gallops, or rubs. Respiratory: Normal respiratory effort. Lungs clear to auscultation bilaterally. No crackles, rhonchi, or wheezes. Abdomen: Soft, nondistended abdomen. No bruits heard on auscultation. No tenderness to deep palpation. Extremities: Capillary refill <2 sec. 2+ dp equal bilaterally. No pedal edema. Neuro: Alert and oriented x3. No focal motor/sensory deficits. CN II through XII intact bilaterally. No dysmetria on finger-nose testing. Skin: Clean, dry, and intact. No rashes, bruises, or erythema. Discharge Data Allergies Allergy/AdvReac Type Severity Reaction Status Date / Time No Known Allergies Allergy Verified 03/20/22 16:57 Consultations 03/20/22 16:36 ED Decision to Admit Stat 03/21/22 06:51 Consult Neurology Routine Ordered Studies 03/20/22 15:53 CT angio head w con Stat CT angio neck with con Stat CT head/brain wo con Stat 03/20/22 17:03 MRI Brain [MR brain wo/w con] Stat 03/21/22 16:37 CT angio abdomen pelvis w con Routine Hospital Course (1) TIA (transient ischemic attack): 67-year-old male with a history of hypertension, hypothyroidism, SOCORRO (on CPAP), suboptimally controlled DM2, and hyperlipidemia, who presented to the hospital with his with acute onset confusion in the setting of subacute history of similar episodes x3, who was admitted for work-up of strokelike symptoms. Now being managed for presumed TIA. Transient ischemic attack/strokelike symptoms -Presented with complaint of acute confusion. Patient had presented on 3 previous occasions, the work-up for which had yielded nothing save for tickborne infections (anaplasmosis, babesiosis). -On most recent presentation in January 2022, tickborne illness work-up was negative. Rest of work-up also negative. Tickborne illness panel negative on this admission as well. -ED course notable for hypertensive emergency (BP: 203/123). Confusion resolved at the time of admission. Initial labs within normal limits, noncontributory. Based on HPI, stroke alert called. Imaging (CT head, CTA neck, MRI brain) negative for acute intracranial process. EEG negative. Patient admitted for further work-up, evaluation by neurologist. -Hemoglobin A1c 7.9%, B12 of 168 pg/mL, urine tox screen negative. Anaplasmosis, Babesia serologies, urine metanephrines pending. -Neurology consult: Suspect TIA. Recs below * DAPT: Clopidogrel 75 mg a day, aspirin 81 mg a day x3 weeks. Discontinue aspirin after 3 weeks, continue clopidogrel monotherapy. * Atorvastatin 80 mg/day * Continue medical management of hypertension: Switching from lisinopril to irbesartan. Plan to continue at discharge. Hypertensive urgency/hypertension -Patient has history of high blood pressure, which until now, has only been managed on lisinopril 5 mg daily. -Given suboptimal pressure coverage, hypertensive urgency on presentation, strongly suspect presenting symptoms attributable to hypertension. Adjusting antihypertensive regimen, which will continue on discharge. * Stopping home lisinopril. Switching to irbesartan. Continue at discharge Hypothyroidism: TSH within normal limits. Continue home levothyroxine SOCORRO: CPAP nightly DM2: Hemoglobin A1c-7.9%. Holding home metformin. Glucose management by glycemic consult. Code: Full code Dispo: Med-Surg with telemetry FEN/GI: Diabetic diet DVT Prophylaxis: Clopidogrel, aspirin Consults: Neurology (2) AMS (altered mental status): (3) Stroke-like symptoms: (4) Hypertensive urgency: Total Time Total Time Spent Total Time Spent (In Minutes): 20 Discharge Plan Discharge Items Patient Disposition: Home - Self-Care Reason For Visit: HYPERTENSIVE ENCEPHALOPATHY Discharge Diagnosis: TIA 2/2 uncontrolled hypertension Activity: Per Instructions section Non-emergency contact: Primary Care Provider Call non-emergency contact if: you have any medication questions, your symptoms worsen and your pain is not controlled Follow-up/Referrals: Russ Newsome MD [Primary Care Provider] - 04/03/22 3:30 pm Diet: Regular Addtl Attending Provider Instructions: Dear Ever, You were brought to the hospital by your because of your sudden confusion. You were admitted to the hospital because of our concern for an acute stroke and were evaluated with labs, imaging of your brain and arteries leading to your brain, and by our neurologist. We found no evidence of a stroke on imaging or clinically, and your labs were mostly normal. Our specialists and your primary hospital team both feel that your symptoms were consistent with a transient ischemic attack, or a TIA. We believe that this TIA was caused in part due to uncontrolled hypertension. Therefore, we kept you overnight for observation to ensure that you were clinically stable. Now that you have demonstrated this, we feel that you are ready to be safely discharged home. We are sending you home on 2 new medications, and adjusting dosing of a third: * We are sending a drug called clopidogrel or Plavix to your pharmacy. Please take clopidogrel 75 mg daily x3 weeks. After 3 weeks, continue to take Plavix daily. * We are sending you on a drug called irbesartan to your pharmacy. Please take irbesartan 150 mg daily, unless otherwise instructed by your primary care physician. * We are continuing your aspirin 81 mg, which you already take nightly. Please take aspirin 81 mg nightly x3 weeks. After 3 weeks, please stop taking aspirin. You are scheduled to follow-up with Dr. White's PA on Saturday, March 26, 2022. If you are unable to make an appointment, you may call their office at [phone] to reschedule. It is very important that you keep this appointment, as it will allow your physician to reconcile and continue your medications as needed. It has been our pleasure caring for you here at [facility]. If you have any questions or concerns about your stay, you may reach us at [phone]. Pending Studies at Discharge: No Stand-Alone Forms: My [facility], Smoking Cessation Medications and DC Order Prescriptions: New clopidogrel 75 mg Tablet 75 mg PO QAM 30 Days Qty: 30 0RF irbesartan 150 mg Tablet 150 mg PO QAM 30 Days Qty: 30 0RF Continued dulaglutide 1.5 mg/0.5 mL pen injector 1.5 mg SQ .weekly Qty: 6 1RF Rx Instructions: Friday allopurinol 300 mg tablet 300 mg PO DAILY Qty: 90 3RF atorvastatin 80 mg tablet 80 mg PO HS Qty: 90 3RF (DME) Accu-Chek Jennifer Plus test strp Strip See Rx Instructions .ROUTE .MEDSUPPLY Rx Instructions: Test blood sugars 3 times a day PRN nitroglycerin 0.4 mg tablet, sublingual 0.4 mg SL UD PRN (Reason: chest pain) Qty: 14 6RF aspirin [Kaela Low Dose Aspirin] 81 mg tablet,delayed release (DR/EC) 81 mg PO HS omega-3 fatty acids-fish oil [Fish Oil] 360-1,200 mg capsule 1 cap PO DAILY metoprolol succinate 50 mg tablet extended release 24 hr 25 mg PO BID17 levothyroxine 100 mcg tablet 100 mcg PO DAILYBB paroxetine HCl 20 mg tablet 20 mg PO HS metformin 1,000 mg tablet 1,000 mg PO BID17 magnesium 250 mg Tablet 500 mg PO DAILY Discontinued lisinopril 5 mg tablet 5 mg PO QAM Qty: 90 3RF Discharge Orders: Discharge Order (Routine); Ordered 03/22/22 Ordered By: Dave Ye/Other Patient Handouts: Managing Type 2 Diabetes, Diabetes: Meal Planning Admission Data Admit Date/Time: 03/20/22 17:18 Attending Provider: Kevon South Admit Provider: Terell Sharp Primary Care Provider: Russ Newsome Other Providers: Terell Sharp ; Donald Stern Other Interventions: Discharge Summary Assessment (RN) Last Done: 03/22/22 16:48 Supervising Physician Co-Signing Physician Notes Attending attestation Pt seen and examined in concert with Dr. Orellana. In agreement with the documented findings as noted in the resident documentation with any exceptions or additions as noted here. Asymptomatic at this time and tolerating BP medications without lightheadedness or fatigue. TIA, recurrent - DAPT transitioning to Plavix in 3 weeks. Statin therapy as noted. HTN with urgency/emergency - transitioned to irbesartan without adverse effects and with BP significantly improved. Monitor for hypotension, though has not occurred in monitored setting on low sodium diet. Counseling reviewed re: HTN modifying lifestyle management and encourage ongoing support. Else see resident documentation as noted. Total attending physician time spent with this patient's care on the day of discharge: 40 minutes. Resident Activity Tracking Resident Involvement: Resident Care Provided Care Provided: Adult Hospital Medicine
[2022-03-22] MEDS: INSULIN ASPART PER UNIT SC SCH ×3 (08:03→16:41)
[2022-03-22] MEDS: OMEGA-3 (PURIFIED FISH OIL) 1 GM CAP PO SCH (08:05)
[2022-03-22] MEDS: MAGNESIUM OXIDE 400 MG TAB PO SCH (08:05)
[2022-03-22] MEDS: METOPROLOL SUCC 25MG EXT REL TAB PO SCH ×2 (08:06→16:42)
[2022-03-22] MEDS: allopurinoL 300 MG TAB PO SCH (08:06)
[2022-03-22] MEDS: CLOPIDOGREL BISULFATE 75 MG TAB PO SCH (08:06)
[2022-03-22 08:34] LABS: BUN Creatinine Ratio 17.5 (10-20); Calcium 9.2 mg/dl (8.5-10.1); Creatinine Clr Calc Pharmacy 79.7 ml/min; Est GFR (African American) 68.4 ml/min; Potassium 4.6 mmol/L (3.5-5.1)
[2022-03-22] MEDS ORDERED: IRBESARTAN 150 MG TAB PO SCH (09:00)
[2022-03-23 08:42] LABS: 18KDIGG Band NON-REACTIVE; 23KDIGG Band NON-REACTIVE; 23KDIGM Band NON-REACTIVE; 28KDIGG Band NON-REACTIVE; 30KDIGG Band NON-REACTIVE; 39KDIGG Band NON-REACTIVE; 39KDIGM Band NON-REACTIVE; 41KDIGG Band NON-REACTIVE; 41KDIGM Band NON-REACTIVE; 45KDIGG Band NON-REACTIVE; 58KDIGG Band NON-REACTIVE; 66KDIGG Band NON-REACTIVE; 93KDIGG Band NON-REACTIVE; Lyme Antibodies, WB IgG NEGATIVE (NEGATIVE); Lyme Antibodies, WB IgM NEGATIVE (NEGATIVE)
[2022-03-23 20:40] LABS: Babesia microti DNA Not Detected (Not Detected)
[2022-03-26 17:36] LABS: Normetanephrine, Ur 327 mcg/24 h (122-676); Total Metanephrine 386 mcg/24 h (224-832)
[2022-03-27 16:03] LABS: Catech Norepinephrine 169 pg/mL; Catech Total, Plasma 169 pg/mL; Metanephrine, Plasma <25 pg/mL (<=57); Normetanephrine Plasma 70 pg/mL (<=148); Total Metanephrine Plasma 70 pg/mL (<=205)
== END 2022-03-22 17:29 | disposition home or self-care (01) ==
LOC: 2E 14:35 → ED 14:35 → SUATTDRO 17:18 → 2E 18:25